=== PATIENT | female | born 1995 | race Caucasian/White ===

== ENCOUNTER 2017-05-07 10:00 | Outpatient (CLI) | payer MEDICAID, SELFPAY | END 2017-05-07 11:40 | disposition home or self-care (01) | LOC: WPOUT 11:04 → WP 11:05 | PROVIDERS: Family Provider Internal Medicine; PCP Internal Medicine; Visit Provider Obstetrics & Gynecology | DX: Z39.1 Encounter for care and examination of lactating mother (principal) ==

== ENCOUNTER → 2017-09-22 14:59 | Outpatient (CLI) | payer MEDICAID, SELFPAY ==
--- NOTE | 2017-09-22 15:04 | RAD_ITS ---
STUDY: X-RAY - LEFT KNEE REASON FOR EXAM: Female, 22 years old. Left knee pain for one month. TECHNIQUE: 3 view(s) of the knee. COMPARISON: None. FINDINGS: Normal visualized distal femur. Normal visualized proximal tibia and fibula. Normal patella. There is no demonstrated destructive osseous lesion or fracture. Normal medial femorotibial compartment. Normal lateral femorotibial compartment. Normal patellofemoral articulation. Normal proximal tibiofibular articulation. There is no demonstrated joint effusion. The soft tissue structures are unremarkable. RAD/Knee 3 Views IMPRESSION: Normal x-ray examination of the left knee. Electronically Signed: Samuel Helton MD at 19:15 EDT , Service support ,
== END ==
PROVIDERS: Family Provider Internal Medicine; PCP Internal Medicine; Visit Provider Nurse Practitioner Family
DX: M25.562 Pain in left knee (principal)
CPT/HCPCS: 73562

== ENCOUNTER 2017-11-02 23:54 | Emergency (ER) | payer MEDICAID, SELFPAY ==
--- NOTE | 2017-11-02 23:54 | DT_ITS ---
This patient was seen during an EMR downtime November 02, 2017 - November 09, 2017. This patient may have a combination of paper and electronic documentation or all paper documentation. All documentation is viewable within the e-chart portion of [employer] for each patient visit.
== END 2017-11-03 00:28 | disposition home or self-care (01) ==
LOC: ED 11-04 16:21
PROVIDERS: Emergency Provider Emergency Medicine; Family Provider Internal Medicine; PCP Internal Medicine
DX: J06.9 Acute upper respiratory infection, unspecified (principal); Z79.899 Other long term (current) drug therapy; G43.909 Migraine, unspecified, not intractable, without status migrainosus; K58.9 Irritable bowel syndrome, unspecified
CPT/HCPCS: 99283

== ENCOUNTER 2017-11-13 11:30 | Outpatient (RCR) | payer MEDICAID, SELFPAY ==
--- NOTE | 2017-10-23 15:43 | HP.PTEVAL ---
Patient's Visit Information JESSY LOPEZ is a 22 year old F referred to Physical Therapy by MADELEINE Wiley with a diagnosis of L knee pain. Date of Evaluation: 10/23/17 Physical Therapist: Jack Leon DPT, OC - Visit Plan Frequency: 3x /Week Duration: 4-6 Weeks Plan: 3x/weekk for 2-4 for. 1. pt to bring brace to check fit and lateral patella hold. 2. foam rolla nd stretch ITB and quads. 3. Strengthen hip stabs adn progress to HEP. 4. ES and ice as needed to lateral L knee. - Subjective Subjective: Hurt L knee insidiously(maybe b/c I was . and had baby 5 months ago. Staarted back to work 3 months ago. Anterior knee left pain new to her. Worse sitting. Sleep is interrupted as it hurts in bed. It cracks alot. 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 Basic ADLs are worse and limited but sitting is the worst. Finished school today and will have clinicals. - Pain L anterior Pain Intensity (Out of 10): 6 Pain Intensity Range: 0, 7 Comment: worse with sitting - Objective Walks normal and trasnfers without difficulty today. L IR at femur adn tibia is her posture. Foot bio mechanics are normal otherwise. Tender under lateral L patella and + patellar grind. - bounce home. Full aROM in knee, quads and ITB tight B and painful at end of flexion. reflexes 2/3 in patella and achilles. Sensation WNL to gross light touch. - anterior drawer adn lachmans. Sits with IR at B femur. - Goals Goal 1:: No pain consistently at rest. Goal Time Frame: 4-6 Weeks Goal 2:: Steps and sit to relax without pain Goal Time Frame: 4-6 Weeks Goal 3:: Pt with pain 90% better adn no more than 1/10 Goal Time Frame: 4-6 Weeks Goal 4:: I approp ex to minimze future problems. Goal Time Frame: 4-6 Weeks - Rehabilitation Potential Physical Therapy Diagnosis: L patellofemoral irritation Rehabilitation Potential: Fair - Anticipated Interventions Patient/Client Instruction: Educate patient on: Condition, Plan of Care For the Purpose of:: To decrease pain, To improve ability of physical actions for home/community/work/leisure Therapeutic Exercise to Include: Strength training, Postural training, Active ROM For the Purpose of:: To decrease pain, To improve ability of physical actions for home/community/work/leisure, To improve gait and locomotor functions Manual Therapy Techniques to Include: Soft tissue mobilization For the Purpose of:: To increase ROM TENS: Yes Cryotherapy (ice pack, ice massage): Yes For the Purpose of:: To decrease pain Thank you for the opportunity to evaluate your patient. For Medicare and Medicare HMO plans, please review the plan of care and approve it. It will need to be FAXED BACK to us at [phone] for Medicare purposes. Please let me know if there are questions or concerns regarding this plan of care. Physician Signature: Date:
--- NOTE | 2018-01-07 12:00 | HP.PT.NRP ---
HP - Discharge Summary (1) - Patient Information JESSY LOPEZ was seen in my office for initial evaluation on 10/23/17. The following Plan of Care was established for this patient: Initial Frequency: 3x /Week Initial Duration: 4-6 Weeks - Anticipated Interventions Patient/Client Instruction: Educate patient on: Condition, Plan of Care For the Purpose of:: To decrease pain, To improve ability of physical actions for home/community/work/leisure Therapeutic Exercise to Include: Strength training, Postural training, Active ROM For the Purpose of:: To decrease pain, To improve ability of physical actions for home/community/work/leisure, To improve gait and locomotor functions Manual Therapy Techniques to Include: Soft tissue mobilization For the Purpose of:: To increase ROM TENS: Yes Cryotherapy (ice pack, ice massage): Yes For the Purpose of:: To decrease pain This patient was last seen in our office 11/13/17. Pertinent comments regarding their Physical therapy will appear below: Pt seen for two visits of her plan of care and cancelled/no showed for the rest. I will discontinue her due to nonattendance at this point as it has been over two months. At this point I will be discontinuing this patient from physical therapy. I would be happy to see this patient again in the future if found appropriate by the physician. Thank you! Jack Leon, DPT, OC
== END 2017-11-13 19:00 | disposition home or self-care (01) ==
LOC: PT 11:30
PROVIDERS: Family Provider Internal Medicine; PCP Internal Medicine; Visit Provider Nurse Practitioner Family
DX: M25.569 Pain in unspecified knee (principal)
CPT/HCPCS: 97110; 97161

== ENCOUNTER 2017-12-05 21:24 | Emergency (ER) | payer MEDICAID, SELFPAY ==
[2017-12-05 21:24] VITALS: BP 152/79; PULSE 91; RESP 18; TEMP 37.1; O2SAT 97; BMI 31.2
[2017-12-05 21:58] LABS: Red Blood Cells-Urine 0 SEEN /hpf (0-5)
[2017-12-05] MEDS: Ketorolac 30 MG/ML Syringe IV (22:00)
[2017-12-05] MEDS: 0.9% Normal Saline 1,000 ML 1000 ML IV (22:00)
[2017-12-05] MEDS: Ondansetron 4 MG/2 ML Vial IV (22:00)
[2017-12-05 22:01] LABS: Absolute Lymphocyte Count 2.55 X10^3/ul (0.83-4.51); Absolute Neutrophil Count 4.1 X10^3/uL (2.0-7.7); Basophil# 0.02 X10^3/uL; Basophil% 0.3 % (0-1); Eosinophil# 0.26 X10^3/uL; Eosinophils% 3.5 % (0-5); Hematocrit 38.7 % (37-47); Hemoglobin 12.7 g/dl (12.0-15.0); Lymphocyte # 2.55 X10^3/ul (4.0); Lymphocyte % 34.1 % (19-41); Mean Corp Hgb Conc 32.8 g/gl (32-36); Mean Corpuscular Hgb 27.3 pg (27.0-32.0); Mean Corpuscular Volume 83.2 fL (81-99); Mean Platelet Vol. 9.1 fl (6.2-12.0); Monocyte# 0.53 X10^3/uL; Monocyte% 7.1 % (0-10); Neutrophil # 4.11 X10^3/uL (2.7-7.7); Neutrophil % 54.9 % (47-70); Platelet Count 208 K/mm3 (150-450); RBC Distribution Width CV 13.4 % (11.6-14.6); RBC Distribution Width SD 40.8 fl (35.1-43.9); Red Blood Count 4.65 M/mm3 (4.2-5.4); White Blood Count 7.5 K/mm3 (4.4-11.0)
[2017-12-05 22:02] LABS: POSITIVE COUNT NO; POSITIVE DIFFERENTIAL NO; POSITIVE MORPHOLOGY NO
[2017-12-05 22:05] LABS: Color, Urine Yellow (Yellow); Glucose, Dipstick Normal (Normal); Ketone-Dipstick Negative (Negative); Leukocyte Esterase-Dipstick 25 /ul (Negative); Nitrite-Dipstick Negative (Negative); Occult Blood-Urine Negative /ul (Negative); Protein-Dipstick 15 mg/dl (Negative); Specific Gravity, Urine 1.015 (1.002-1.030); Urine Bilirubin Dipstick Negative (Negative); Urine Clarity Clear (Clear); Urine Urobilinogen Normal (Normal); Urine pH 6.5 (5.0 - 8.0)
[2017-12-05 22:14] LABS: Bacteria 2+ /hpf (None Seen); Mucous, Urine 2+ /hpf (<or=2+); Squamous Epithelial Cells - UA 10-25 SEEN /hpf (5-10); White Blood Cells 0-5 SEEN /hpf (0-5)
[2017-12-05 22:21] LABS: AST(SGOT) 11 U/L (15-37); Alanine Aminotransfer ALT/SGPT 22 U/L (13-56); Albumin, Serum 3.4 g/dL (3.2-5.0); Alkaline Phosphatase 71 U/L (45-117); Anion Gap 10 (5-15); BUN 11 mg/dL (7-18); BUN/Creat Ratio 13.6 RATIO (10-20); Bilirubin, Direct 0.07 mg/dL (0.00-0.30); Calcium,Total 8.7 mg/dL (8.5-10.1); Chloride 107 mmol/L (98-107); Creatinine, Serum 0.81 mg/dL (0.55-1.02); EST Glomerular Filtration Rate 96 mL/min (>60); Est Glom Filt Rate - Afr Amer 116 mL/min (>60); Estimated Creatinine Clearance 103.71 ml/min; Globulin 3.6 g/dL (2.2-4.2); Glucose 98 mg/dL (74-106); Lipase 103 U/L (73-393); Potassium 3.5 mmol/L (3.5-5.1); Sodium Level 141 mmol/L (136-145)
[2017-12-05 22:24] LABS: Pregnancy, Serum, hCG Quali. NEGATIVE Negative (0-9 Nonpreg)
--- NOTE | 2017-12-05 22:33 | ED.DCSUM_ITS ---
- ER Visit Summary Date of Service: 12/05/17 Chief Complaint: Abdominal pain History of Present Illness: The patient is a [address] De La Rosa. She reports that she has abdominal pain began approximately a month ago. Is an intermittent pain that lasts minutes 10 hours at time. She describes it as sharp and stabbing. Is 10-10 hours and 710 currently. States that it is brought on by eating. It does not matter what she eats it does not seem to be specifically associated with fatty food. She reports that it begins approximate 5-10 minutes after eating. She states is relieved by nothing. She has had nausea without vomiting. She reports that she has chronic diarrhea. She had 5-6 episodes yesterday. She has not had diarrhea today. No blood in her stools or black tarry stools. No dysuria frequency. Last menstrual period was December 02. No vaginal bleeding or discharge. Patient reports that she saw her primary care physician as scheduled for an ultrasound of her right upper quadrant in 5 days. She was placed on omeprazole. She reports she has not gotten relief from not. Physical Examination: Vitals: Stable. Afebrile. General: Well-nourished and well-developed. Head: Normocephalic atraumatic. Neck: Supple, no lymphadenopathy. No JVD. Nontender. Cardiovascular: Regular rate and rhythm. No murmurs. Respiratory: No respiratory distress. Clear to auscultation bilaterally. Abdominal: Soft, mild diffuse tenderness palpation is worst in the left upper quadrant, nondistended, normal bowel sounds. No guarding, rebound, or peritoneal signs. No Katz sign. No localized tenderness in the right lower quadrant. Back: Nontender. Extremities: Nontender, no edema. Skin: Normal color, no rash. Neurologic: Alert and oriented ?3. Cranial nerves II through XII are intact. Normal strength and sensation. Psych: Normal affect. Test Results: CBC is normal. Chem-7 is normal. Liver panel is marked for an AST of 11. Lipase is normal. UA is negative. test is negative. Emergency Department Course and Treatment: Patient was treated Toradol and Zofran IV. She is resting comfortably. Treatment Plan: Patient be discharged with Zofran. Instructed to continue her omeprazole. Follow-up her primary care physician in 3-5 days for further evaluation and treatment. Disposition: To home in [facility] stable condition. Impression: 1. Abdominal pain, uncertain cause. 2. History of hiatal hernia. This note was generated with [employer] dictation software. It may contain incorrect words, spelling, and punctuation that were not noted in review of the chart prior to signing ED Disposition - Plan for ED Patient: Chief Complaint: Abd Pain Instructions: ED Abdominal Pain Unkn Cause Prescriptions: Ondansetron [Zofran Odt] 4 mg PO Q8H PRN PRN #10 tablet PRN Reason: Nausea Referrals: Anna De La Rosa MD [Primary Care Provider] - 3-5 Days if not improving
[2017-12-05 22:42] VITALS: BP 146/80; PULSE 88; RESP 16; O2SAT 98
== END 2017-12-05 22:44 | disposition home or self-care (01) ==
LOC: ED 21:39
PROVIDERS: Emergency Provider Emergency Medicine; Family Provider Internal Medicine; PCP Internal Medicine
DX: R10.9 Unspecified abdominal pain (principal); R11.0 Nausea; R19.7 Diarrhea, unspecified
CPT/HCPCS: 80048; 80076; 81001; 83690; 84703; 85025; 96361; 96374; 96375; 99283; J7030; A4216; J2405

== ENCOUNTER → 2017-12-08 10:49 | Outpatient (CLI) | payer MEDICAID, SELFPAY ==
--- NOTE | 2017-12-08 10:51 | US_ITS ---
STUDY: ABDOMINAL ULTRASOUND - RIGHT UPPER QUADRANT REASON FOR VISIT: Female, 22 years old. Pain TECHNIQUE: Ultrasound evaluation of the right upper quadrant was performed with real-time and static rivera-scale imaging. TECHNICAL QUALITY: Adequate. COMPARISON: None. FINDINGS: Liver: The liver measures 16.9 cm. There is normal echogenicity of the liver. The bile ducts are within normal limits. There is hepatic color flow. The direction of portal flow is hepatopetal. There is no demonstrated mass lesion. Gallbladder: Normal distended gallbladder. The gallbladder wall measures 2.8 mm. There is a negative sonographic Katz's sign. There is no pericholecystic fluid. There are no gallstones. Common Bile Duct (C.B.D.): The common bile duct measures 2.7 mm. Pancreas: Normal size of the head, body and tail of the pancreas. There is normal echogenicity of the pancreas. There is no demonstrated pancreatic mass or cyst. Right Kidney: Normal size of the right kidney. The right kidney measures 11.2 x 6.6 x 6.1 cm. Normal renal cortex. The right cortex measures 2.6 cm. There is no demonstrated renal mass or cyst. There is no right hydronephrosis. US/Gallbladder IMPRESSION: Normal right upper quadrant ultrasound examination. Electronically Signed: Oscar Engle MD at 22:18 EDT Tel , Service support ,
== END ==
PROVIDERS: Family Provider Internal Medicine; PCP Internal Medicine; Visit Provider Nurse Practitioner Family
DX: R10.11 Right upper quadrant pain (principal)
CPT/HCPCS: 76705

== ENCOUNTER 2018-02-07 17:57 | Emergency (ER) | payer MEDICAID, SELFPAY ==
[2018-02-07 17:58] VITALS: BP 146/101; PULSE 114; RESP 16; TEMP 36.8; O2SAT 98; BMI 28.1
[2018-02-07] MEDS: 0.9% Normal Saline 1,000 ML 999 ML IV (18:38)
[2018-02-07] MEDS: DiphenhydrAMINE 50 MG/ML Syringe 25 MG IV (18:38)
[2018-02-07] MEDS: Metoclopramide 10 MG/2 ML Vial IV (18:38)
[2018-02-07 19:29] LABS: Pregnancy, Serum, hCG Quali. NEGATIVE Negative (0-9 Nonpreg)
--- NOTE | 2018-02-07 20:10 | ED.DCSUM_ITS ---
- ER Visit Summary Date of Service: 02/07/18 Chief Complaint: Headache, vertigo History of Present Illness: The patient is a 22 F who has migraines developed a gradual onset of headache 3 days ago however this is different because she had some vertiginous symptoms with it. These are not instigated by movement. They are not worsened by movement. They are intermittent and she cannot tell when they come on. She has no vision changes no weakness no voice change or difficulty speaking. She has no paresthesias. She has no other neurological symptoms. Her headache is mild to moderate and consistent with prior migraines. The headache has not been the worst headache, it is not a thunderclap headache. It is diffuse and not local. Physical Examination: Not appear in acute distress. She does not appear toxic. Moist mucous membranes, no obvious facial deformity No C-spine tenderness supple neck. Regular rate and rhythm without any obvious murmurs Clear lungs bilaterally speaking in full sentences without any obvious respiratory distress Abdomen soft and nontender no guarding or rebound Moves all extremities without any difficulty or pain. Skin does not show any obvious rashes or lesions, no trauma. Alert oriented ?3 with no gross focal deficit. Cranial nerves are intact. NIH stroke scale done by me is normal. She has a normal gait. She does not have any compensated saccade. Emergency Department Course and Treatment: Improved with IV fluids Reglan and Benadryl. Her CT angiogram looked unremarkable. There is a 4.3 cm heterogeneous mass in the thyroid isthmus. Malignancy cannot be excluded per radiology. I printed the report for her gave it to her told her that she is to follow-up with her PCP for further testing. She is also referred to surgery. She understands that this could be cancer. As far as her headache and vertigo these have improved there is no further testing needs to be done. Patient be discharged in stable condition Discharge stable condition Impression: Cephalgia improved Vertigo Thyroid mass This note was generated with [employer] dictation software. It may contain incorrect words, spelling, and punctuation that were not noted in review of the chart prior to signing ED Disposition - Plan for ED Patient: Disposition: Home or Assisted Living Chief Complaint: Dizziness Instructions: ED Vertigo Unspecified Referrals: Anna De La Rosa MD [Primary Care Provider] - 3-5 Days Sybil Tran MD [STAFF PHYSICIAN] - 3-5 Days Additional Instructions: Incidentally a thyroid mass was seen on CAT scan, this could be cancer please follow-up with surgery as well as your primary doctor for further testing.
[2018-02-07 21:19] VITALS: BP 128/79; PULSE 82; RESP 16; O2SAT 98
== END 2018-02-07 21:20 | disposition home or self-care (01) ==
PROVIDERS: Emergency Provider Emergency Medicine; Family Provider Internal Medicine; PCP Internal Medicine
DX: R51 Headache (principal); R42 Dizziness and giddiness; E07.9 Disorder of thyroid, unspecified; G43.909 Migraine, unspecified, not intractable, without status migrainosus; K58.9 Irritable bowel syndrome, unspecified; Z79.899 Other long term (current) drug therapy
CPT/HCPCS: 70496; 70498; 84703; 96361; 96374; 99283; J7030; Q9967; A4216

== ENCOUNTER → 2018-02-12 10:04 | Outpatient (CLI) | payer MEDICAID, SELFPAY ==
[2018-02-12 11:21] LABS: T4 Free Direct 0.94 ng/dL (0.76-1.46); Thyroid Stim Hormone (TSH) 1.47 uIU/mL (0.358-3.74)
[2018-02-12 11:21] LABS: T3 Total - Triiodothyronine 1.58 ng/mL (0.6-1.81)
== END ==
PROVIDERS: Family Provider Internal Medicine; PCP Internal Medicine; Visit Provider Nurse Practitioner Family
DX: E07.9 Disorder of thyroid, unspecified (principal)
CPT/HCPCS: 84439; 84443; 84480

== ENCOUNTER → 2018-02-17 09:01 | Outpatient (CLI) | payer MEDICAID, SELFPAY ==
--- NOTE | 2018-02-17 09:04 | US_ITS ---
STUDY: THYROID ULTRASOUND REASON FOR EXAM: Female, 22 years old. Thyroid mass TECHNIQUE: Ultrasound evaluation of the thyroid was performed with real-time and static rivera-scale imaging. COMPARISON: CTA neck dated 02/07/2018 FINDINGS: RIGHT LOBE: The right lobe of the thyroid gland measures 4.9 x 2.4 x 1.2 cm. There is a homogeneous echotexture. Single solid lower pole nodule measuring 6 x 4 x 4 mm. LEFT LOBE: The left lobe of the thyroid gland measures 4.5 x 2 x 1.1 cm. There is a homogeneous echotexture. 2 solid nodules, largest in the lower pole measuring 9 x 8 x 6 mm. ISTHMUS: The isthmus measures 4 mm. In the region of the isthmus, there is a complex and vascular nodule/mass measuring 4.1 x 4.8 x 2.6 cm The regional lymph nodes are normal. US/Thyroid IMPRESSION: 1. Large complex isthmus nodule/mass 2. Small subcentimeter bilateral solid nodules Electronically Signed: Tim Webster DO at 10:00 EDT Tel , Service support ,
== END ==
PROVIDERS: Family Provider Internal Medicine; PCP Internal Medicine; Visit Provider Nurse Practitioner Family
DX: E07.9 Disorder of thyroid, unspecified (principal)
CPT/HCPCS: 76536

== ENCOUNTER → 2018-03-06 06:31 | Outpatient (CLI) | payer MEDICAID, SELFPAY ==
--- NOTE | 2018-03-06 08:00 | FLU_PTH ---
PATIENT: JESSY LOPEZ LOC: [facility] U#:[id number] AGE/SX: 29/F ROOM: RE03/06/[address]: Dr. Juan Ozuna MD : 1995 BED: DIS: SPEC #: [id number] RECD: 03/06/18 12:09 STATUS: GAVIN LATA #: [id number] LORIE: 03/06/18 08:[address]: Juan Ozuna DEPT: CYTOLOGY RECD BY: Amanda Michaels ENTERED: 03/08/18 11:19 SP TYPE: Fluid OTHR DR: Dr. Anna De La Rosa MD Tissues: A - Thyroid isthmus B - Thyroid isthmus Procedures: Pap Stain (control) Special Stain Group II Surgery Specimen Level IV Cell Block Cytospin Fluid Cytology Other HEADER OPERATION: Fine needle aspiration of isthmus PRE-OP DIAGNOSIS: Multinodular goiter (nontoxic) TISSUE SUBMITTED: A - Fine needle aspiration of isthmus, fluid for cytology, B - Fine needle aspiration of isthmus 12?slides DIAGNOSIS CYTOLOGY A. Fine needle aspiration, isthmus (cytospin and cell block): Macrophages and inflammatory cells consistent with benign cyst contents. B. Fine needle aspiration, isthmus (smears): Adequate for evaluation. Rare atypical cells of undetermined clinical significance. AM:mary 03/09/18 COMMENT A. Immunohistochemistry ([id number]) supports the above diagnosis. CYTOLOGY STUDY Slides are reviewed. CYTOLOGY GROSS A - Received is 7 ml of red cloudy fluid labeled with the patient's name and and designated per the requisition as isthmus. Submitted for cytology preparation including cell block. B - Received are 12 smears labeled with the patient's name and designated per the requisition as isthmus. Submitted for staining. 03/08/18 TC:? CPT: 94379, 91440, 76982
--- NOTE | 2018-03-08 | IMM_PTH ---
PATIENT: JESSY LOPEZ LOC: [facility] U#:[id number] AGE/SX: 29/F ROOM: RE03/06/[address]: Dr. Juan Ozuna MD : 1995 BED: DIS: SPEC #: [id number] RECD: 03/09/18 13:48 STATUS: GAVIN REQ #: [id number] LORIE: 03/08/18 00:[address]: Juan Ozuna DEPT: IMMUNOHISTOCHEMISTRY RECD BY: Michelle Garcia ENTERED: 03/09/18 13:50 SP TYPE: IMMUNO OTHR DR: Dr. Anna De La Rosa MD Tissues: A - Thyroid isthmus Procedures: MACRO (initial) Thyroglobulin (add) Vimentin (add) PHYSICIAN & INSTITUTION [place] [id number] SPECIMEN INFORMATION: Tissue Source: A - Fine needle aspiration, isthmus Clinical Info: Multinodular goiter (nontoxic) Specimen Number: [id number] CPT code: 72715, 78587 x2 METHODOLOGY: Deparaffinized sections of prefer/formalin-fixed tissue or PAP/DQ stained slides are incubated with monoclonal/polyclonal antibodies/oligonucleotide probes. Localization is made via biotin free immunoperoxidase method. Appropriate controls are performed and reacted as expected. Results on target cell population are indicated in the following table: RESULTS: ANTIBODY / CLONE RESULT Block A Macro (HAM-56) positive Thyro (2H11+6E1) positive, rare Vimentin (V9) positive These tests were developed and their performance characteristics determined by [facility]. They may not have been cleared or approved by the U.S. Food and Drug Administration. The FDA has determined that such clearance or approval is not necessary. INTERPRETATION: Katia Kohli, fine needle aspiration: Consistent with benign thyroid cyst contents. AM:mary 03/10/18
== END ==
PROVIDERS: Family Provider Internal Medicine; PCP Internal Medicine; Referring Provider Surgery; Visit Provider Surgery
DX: E04.2 Nontoxic multinodular goiter (principal)
CPT/HCPCS: 88108; 88161; 88172; 88305; 88307; 88313; 88341; 88342

== ENCOUNTER 2018-03-30 10:23 | Day surgery (SDC) | payer MEDICAID, SELFPAY ==
[2018-03-30] VITALS (10 sets, daily range): BP systolic 109–138; BP diastolic 70–98; PULSE 78–110; RESP 14–18; TEMP 36.3–37.2; O2SAT 94–100; BMI 31.4
--- NOTE | 2018-03-30 | LYMN_PTH ---
PATIENT: JESSY LOPEZ LOC: [facility] [place] U#:[id number] AGE/SX: 22/F ROOM: RE03/30/[address]: Dr. Juan Ozuna MD : 1995 BED: DIS: 03/31/2018 SPEC #: [id number] RECD: 03/30/18 13:44 STATUS: GAVIN LATA #: [id number] LORIE: 03/30/18 00:[address]: Juan Ozuna DEPT: SURGICAL PATHOLOGY RECD BY: Michelle Garcia ENTERED: 03/30/18 15:15 SP TYPE: LYMPH NODE OTHR DR: Dr. Anna De La Rosa MD Tissues: A - LYMPH NODE BIOPSY B - Thyroid gland, NOS Procedures: Frozen Section (charge) Surgery Specimen Level IV Frozen (no charge) HEADER OPERATION: Total thyroidectomy PRE-OP DIAGNOSIS: Multinodular goiter TISSUE SUBMITTED: A - Left node central compartment sent for frozen at 1339, B - Total thyroid sent for frozen at 1358) FROZEN SECTION DIAGNOSIS A. Left node central compartment, biopsy: One benign lymph node. B. Thyroid, total thyroidectomy: Isthmic nodule, complex cystic colloid nodule. A few benign lymph nodes. PEREZ:mary 03/30/18 MICROSCOPIC DIAGNOSIS A. Left node central compartment, biopsy: One benign lymph node. B. Thyroid, total thyroidectomy: Isthmic nodule, complex cystic colloid nodule with focal calcifications. Five benign lymph nodes. See comment. PEREZ:mary 03/31/18 COMMENT B. The isthmic nodule also extends focally into the left thyroid lobe. Please make reference to previous specimen ([id number]), fine needle aspiration, isthmus with diagnosis of macrophages and inflammatory cells consistent with benign cyst contents and fine needle aspiration, isthmus with diagnosis of rare atypical cells of undetermined significance. MICROSCOPIC DESCRIPTION Slides are reviewed. GROSS DESCRIPTION A - Received fresh for frozen section diagnosis labeled with the patient's name is a specimen designated left node central compartment. The specimen consists of an ovoid piece of lebron-pink soft tissue consistent with lymph node measuring 1 x 0.6 x 0.2 cm. The specimen is bisected and submitted entirely for frozen section diagnosis in one cassette. B - Received fresh for frozen section diagnosis labeled with the patient's name is a specimen designated total thyroid. The specimen consists of a total thyroidectomy specimen weighing 29.6 gm. The right thyroid lobe measures 4 x 1.5 x 1 cm and left thyroid lobe measures 4.5 x 2 x 1 cm and the isthmus is enlarged and appears nodular and measures 4 x 4 x 3.5 cm. The specimen is inked as follows: posterior surface right lobe, left lobe and isthmus - black, anterior surface right lobe - blue, anterior surface left lobe - green and anterior surface isthmus - yellow. Serial sections of the isthmus reveal a complex cystic nodule filled with bloody material. Focal solid areas are noted. Two sections of these nodules are submitted for frozen section diagnosis. Sections of these nodules also reveal focally calcified cut surfaces. The entire specimen is submitted in 13 cassettes as follows: 1 & 2 - frozen section, isthmic nodule, 3-7 - rest of the isthmic nodule, 8-10 - right lobe (8 containing most superior portion and 10 containing most inferior portion), 11-13 - left lobe (11 containing most superior portion and 13 containing most inferior portion). / PEREZ:mary 03/30/18 TC:5 CPT: 54657, 73697, 11246 x2, 35812
[2018-03-30 10:55] LABS: Internal QC Validated? YES +Cl - CLEAR BKGD; Pregnancy, Urine Negative Negative
[2018-03-30 11:10] LABS: International Normalized Ratio 0.9; Prothrombin Time (Protime)PT. 12.5 SECONDS (11.7-14.9)
[2018-03-30 11:11] LABS: Partial Thromboplast Time 27.6 Seconds (24.1-36.2)
[2018-03-30] MEDS: Cefazolin 2 GM in 0.9% Normal Saline 100 ML IV (12:50)
[2018-03-30] MEDS: BUPIVACAINE LIPOSOME/PF 20 ML VIAL OPERA.SITE (14:00)
--- NOTE | 2018-03-30 14:12 | PCM.OPRPT ---
Problem List (1) Multinodular goiter (nontoxic) Status: Acute Report of Operation Date of Procedure: 03/30/18 Pre-Operative Diagnosis: e04.2 multinodular goiter Post-Operative Diagnosis: Same Surgery/Procedure Performed:: Total thyroidectomy Type of Anesthesia:: General Anesthesiologist: Estrada Mays - asa 2 Estimated Blood Loss (mL): < 25 cc Fluids Replaced: 1300 cc lr Description of Procedure: Patient was brought into the operating room. Placed in the supine position. Under excellent general anesthetic towel was placed underneath the shoulder blades and the neck was extended. The neck was then sterilely prepped and draped in usual fashion. Local was injected into the neck. Cervical incision was made. Dissection was carried down with electrocautery and subplatysmal flaps were created. Gelpi retractor was placed in the wound. I opened the midline strap muscles. I started on the left side. I went to the superior pole vessels and took these down with harmonic dissector. The middle thyroidal vein was taken down with harmonic dissector. In the inferior pole vessels were taken down. I rotated the gland from lateral to medial standpoint identified both superior and inferior parathyroid glands. I stayed close to the gland I did not see the recurrent laryngeal nerve. Took the gland off of Machado's ligaments with the harmonic dissector. I rotated it off the top of the trachea and went to the right side. The mass that was on the isthmus was actually with in the right lobe again extending and I do not feel it was appropriate for me to transect the lobe in its center and create a much more difficult second surgery if she had malignancy. I made a judgment call that removing not only isthmus but the right side was the more appropriate surgery here. I went to the superior pole vessels and I took these down with harmonic dissector I used 2 small medium clips in the process. I identified the superior parathyroid gland. Took the middle thyroidal vessel down with harmonic dissector and rotated the gland from lateral to medial standpoint identifying the inferior parathyroid gland in the process I then took the rest of the gland off of Machado's ligaments with the harmonic dissector and sent it to pathology for frozen section which came back initially benign. I did remove a central compartment lymph node in the process. This was sent to pathology no malignancy was identified on frozen section. I had excellent hemostasis I placed FloSeal in both the right and left operating beds I closed the midline strap muscles with a 2-0 Vicryl in a locking fashion. Midline strap muscles were brought together with a 3-0 Vicryl. Then a running 4-0 Monocryl on the skin. Dermabond was applied sterile dressings were applied and the patient tolerated the procedure well. - Admit VTE Documentation VTE Present on Admission: No VTE Mechan Device Prophylaxis: SCD's VTE Pharm Prophylaxis ordered?: No Reason prophylaxis not ordered:: Treatment Not Indicated
[2018-03-30 15:12] LABS: Calcium,Total 8.6 mg/dL (8.5-10.1)
[2018-03-30] MEDS: oxyCODONE 5 MG Tablet 10 MG PO ×2 (18:25→22:46)
[2018-03-30] MEDS: Calcium Carbonate 500 MG Tablet 1000 MG PO (18:25)
[2018-03-30] MEDS: Lactated Ringers 1,000 ML 60 ML IV (18:26)
[2018-03-30] MEDS: Cefazolin 1 GM/50 ML BAG IV (22:10)
[2018-03-30] MEDS: Topiramate 50 MG Tablet PO (22:10)
[2018-03-30 22:46] LABS: Calcium,Total 9.4 mg/dL (8.5-10.1)
[2018-03-31 02:32] VITALS: BP 105/66; PULSE 90; RESP 14; TEMP 36.7; O2SAT 95
[2018-03-31] MEDS: oxyCODONE 5 MG Tablet 10 MG PO (05:17)
[2018-03-31] MEDS: Levothyroxine 100 MCG Tablet PO (05:17)
[2018-03-31] MEDS: Cefazolin 1 GM/50 ML BAG IV (05:17)
[2018-03-31 06:30] LABS: Calcium,Total 9.3 mg/dL (8.5-10.1)
--- NOTE | 2018-03-31 07:07 | PCM.DC.SUM ---
Discharge Date and Diagnosis - Problem List Patient Problems: Active and Suspected Problems (Last Reviewed 03/12/18 @ 09:14 by Juan Ozuna MD) Multinodular goiter (nontoxic) (Acute) Date of Admission: 03/30/18 Date of Discharge: 03/31/18 - Primary Discharge Diagnosis Active and Suspected Problems (Last Reviewed 03/12/18 @ 09:14 by Juan Ozuna MD) Multinodular goiter (nontoxic) (Acute) - Secondary Discharge Diagnosis Chronic Problems (Last Reviewed 03/12/18 @ 09:14 by Juan Ozuna MD) Migraines (Chronic) IBS (irritable bowel syndrome) (Chronic) Hospital Course and Treatment Operations: - - Total thyroidectomy Summary of Care Provided: The patient is a 22 year old F who presented for an elective thyroidectomy for multi-nodular goiter. Dr. Ozuna performed a total thyroidectomy on 03/30/18. Patient tolerated the procedure well. Patient had an uneventful hospitalization. Upon discharge, patient notes minimal amount of incisional discomfort. She notes sore throat. She denies nausea, vomiting, fever. She is tolerating a diet well. Patient was instructed on medication and discharge instructions were reviewed. Patient will be discharged to home. Patient Problems: Active and Suspected Problems (Last Reviewed 03/12/18 @ 09:14 by Juan Ozuna MD) Multinodular goiter (nontoxic) (Acute) - Physical Exam General: Alert, Oriented x3, Cooperative Neck: Supple, Negative Carotid Bruits, - - Anterior neck incision- c/d/i. No erythema or infection noted. Bandage intact. Vital Signs Temp Pulse Resp BP Pulse Ox 98.1 F 90 14 105/66 95 03/31/18 02:32 03/31/18 02:32 03/31/18 02:32 03/31/18 02:32 03/31/18 02:32 Oxygen Delivery Method Room Air Weight: 200 lb 6.403 oz Body Mass Index (BMI) 31.4 Intake and Output for Last 24 Hours 03/29/18 03/30/18 03/31/18 23:59 23:59 23:59 Intake Total 2139 / 2139 1665 / 1665 Output Total 1100 / 1100 Balance 2139 / 2139 565 / 565 Laboratory Tests Past 24 Hrs 03/30/18 03/30/18 03/30/18 10:42 10:55 14:40 PT 12.5 INR 0.9 APTT 27.6 Calcium 8.6 Urine Test Negative 03/30/18 03/31/18 21:55 05:50 PT INR APTT Calcium 9.4 9.3 Urine Test Discharge Diet: Light diet - advance as tolerated Discharge Activity: May not drive while taking narcotic pain medications. May shower in (days): 1 Lifting Restrict to (lbs):: 10 Call your doctor if your incision/area has: Continuous Slow Oozing, Sudden Increased Bleeding, Increased Pain/ Swelling, Increased Redness, Foul Smelling Discharge, Swelling at the incision site Call your doctor if you observe: Fever of 101 or Higher, Coldness, Increased Pain, Numbness or Tingling Suture Line Care: Avoid Pulling/Pushing, Avoid Pinching/Bending Cleanse incision/area with: Soap & Water Home Medications: Medications to take at Discharge ibuprofen 600 mg tablet 600 mg PO TID PRN #60 tab 09/22/17 topiramate 50 mg tablet 50 mg PO BID 09/22/17 etonogestrel-ethinyl estradiol 0.12 mg -0.015 mg/24 hr vaginal ring 1 vag ring VAGINAL Q4W 02/12/18 sumatriptan 25 mg tablet 25 mg PO ONCE PRN #7 tab 02/12/18 Omeprazole 20 mg PO QDAY 03/25/18 Levothyroxine [Synthroid] 100 mcg PO DAILY@0600 #30 tablet 03/31/18 Oxycodone [Oxyir] 10 mg PO Q4H PRN PRN 3 Days #20 tablet 03/31/18 Following Prescrptions Were Given to Patient: Oxycodone [Oxyir] 10 mg PO Q4H PRN PRN 3 Days #20 tablet PRN Reason: Severe Pain (6-03/10) Levothyroxine [Synthroid] 100 mcg PO DAILY@0600 #30 tablet Primary Care Physician: Anna De La Rosa MD [Primary Care Provider] - Please Follow Up With: Juan Ozuna MD - [phone] When: 10 days Disposition: Home Minutes spent on discharge:: 20 Patient Condition:: Good Medical Necessity - Tobacco Use Smoking Status: Never smoker Meaningful Use Info Meaningful Use Diagnoses (Choose all that apply): None applicable Code Visit Inpatient E&M: 87429 Disch Hosp
--- NOTE | 2018-03-31 07:09 | PCM.DC.GS ---
Discharge Diet: Light diet - advance as tolerated - Soft foods for the first 2 days Discharge Activity: May not drive while taking narcotic pain medications. May shower in (days): 1 Lifting Restrictions: 10 pounds Call your doctor if your incision/area has: Continuous Slow Oozing, Sudden Increased Bleeding, Increased Pain/ Swelling, Increased Redness, Foul Smelling Discharge, Swelling at the incision site Call your doctor if you observe: Fever of 101 or Higher, Coldness, Increased Pain, Numbness or Tingling Suture Line Care: Avoid Pulling/Pushing, Avoid Pinching/Bending Cleanse incision/area with: Soap & Water Additional Instructions: You will need to take extra strength TUMs 2 tablets three times per day for 14 days Allergies/Adverse Reactions: Allergies No Known Allergies Allergy (Verified 03/25/18 09:15) Medications to take at Discharge ibuprofen 600 mg tablet 600 mg PO TID PRN #60 tab 09/22/17 topiramate 50 mg tablet 50 mg PO BID 09/22/17 etonogestrel-ethinyl estradiol 0.12 mg -0.015 mg/24 hr vaginal ring 1 vag ring VAGINAL Q4W 02/12/18 sumatriptan 25 mg tablet 25 mg PO ONCE PRN #7 tab 02/12/18 Omeprazole 20 mg PO QDAY 03/25/18 Levothyroxine [Synthroid] 100 mcg PO DAILY@0600 #30 tablet 03/31/18 Oxycodone [Oxyir] 10 mg PO Q4H PRN PRN 3 Days #20 tablet 03/31/18 The following prescriptions were given: Oxycodone [Oxyir] 10 mg PO Q4H PRN PRN 3 Days #20 tablet PRN Reason: Severe Pain (-03/10) Levothyroxine [Synthroid] 100 mcg PO DAILY@0600 #30 tablet Primary Care Physician: Anna De La Rosa MD [Primary Care Provider] - Test Results: Test results from this visit will be discussed in further detail at your follow-up appointment, if applicable. Please Follow Up With: Juan Ozuna MD - [phone] When: 10 days Proposed Discharge Date: 03/31/18
--- NOTE | 2018-03-31 07:13 | DCINST_ITS ---
Discharge Diet: Light diet - advance as tolerated - Soft foods for the first 2 days Discharge Activity: May not drive while taking narcotic pain medications. May shower in (days): 1 Lifting Restrictions: 10 pounds Call your doctor if your incision/area has: Continuous Slow Oozing, Sudden Increased Bleeding, Increased Pain/ Swelling, Increased Redness, Foul Smelling Discharge, Swelling at the incision site Call your doctor if you observe: Fever of 101 or Higher, Coldness, Increased Pain, Numbness or Tingling Suture Line Care: Avoid Pulling/Pushing, Avoid Pinching/Bending Cleanse incision/area with: Soap & Water Additional Instructions: You will need to take extra strength TUMs 2 tablets three times per day for 14 days Allergies/Adverse Reactions: Allergies No Known Allergies Allergy (Verified 03/25/18 09:15) Medications to take at Discharge ibuprofen 600 mg tablet 600 mg PO TID PRN #60 tab 09/22/17 topiramate 50 mg tablet 50 mg PO BID 09/22/17 etonogestrel-ethinyl estradiol 0.12 mg -0.015 mg/24 hr vaginal ring 1 vag ring VAGINAL Q4W 02/12/18 sumatriptan 25 mg tablet 25 mg PO ONCE PRN #7 tab 02/12/18 Omeprazole 20 mg PO QDAY 03/25/18 Levothyroxine [Synthroid] 100 mcg PO DAILY@0600 #30 tablet 03/31/18 Oxycodone [Oxyir] 10 mg PO Q4H PRN PRN 3 Days #20 tablet 03/31/18 The following prescriptions were given: Oxycodone [Oxyir] 10 mg PO Q4H PRN PRN 3 Days #20 tablet PRN Reason: Severe Pain (-03/10) Levothyroxine [Synthroid] 100 mcg PO DAILY@0600 #30 tablet Primary Care Physician: Anna De La Rosa MD [Primary Care Provider] - Test Results: Test results from this visit will be discussed in further detail at your follow- up appointment, if applicable. Please Follow Up With: Juan Ozuna MD - [phone] When: 10 days Proposed Discharge Date: 03/31/18
[2018-03-31 08:52] VITALS: BP 128/79; PULSE 75; RESP 16; TEMP 37; O2SAT 95
[2018-03-31] MEDS: Pantoprazole Sodium 20 MG Tablet PO (08:55)
[2018-03-31] MEDS: Calcium Carbonate 500 MG Tablet 1000 MG PO (08:55)
[2018-03-31] MEDS: Topiramate 50 MG Tablet PO (08:55)
== END 2018-03-31 10:25 | disposition home or self-care (01) ==
LOC: SDC 10:24 → AC 10:26 → MS3 12:57
PROVIDERS: Anesthesiology; Family Provider Internal Medicine; PCP Internal Medicine; Referring Provider Surgery; Visit Provider Surgery
PROC: (CPT 60240; principal; 2018-03-30 12:15)
DX: E04.2 Nontoxic multinodular goiter (principal); K21.9 Gastro-esophageal reflux disease without esophagitis; G43.909 Migraine, unspecified, not intractable, without status migrainosus
CPT/HCPCS: 00320; 60240; 36415; 81025; 82310; 85610; 85730; 88305; 88331; J7120; J2405

== ENCOUNTER 2018-07-06 07:26 | Emergency (ER) | payer MEDICAID, SELFPAY ==
[2018-07-06 07:27] VITALS: BP 150/84; PULSE 91; RESP 18; TEMP 36.8; O2SAT 98; BMI 30.5
--- NOTE | 2018-07-06 07:34 | ED.DCSUM_ITS ---
- ER Visit Summary Date of Service: 07/06/18 Chief Complaint: Dysuria, flank pain History of Present Illness: The patient is a 22 F presents to the emergency department flank pain or dysuria. The patient symptoms began about 2 days ago. She presented to an urgent care. She was diagnosed with urinary tract infection and started on Macrobid. She feels like her symptoms are worsening. She is begun to have pain in her left flank and some mild nausea. She thinks that she is had low-grade fevers. She is otherwise healthy. She does have a history of prior thyroidectomy and is on thyroid replacement, but she has no history of immunosuppression. She has no history of other surgery. She is been taking her antibiotics as prescribed. Physical Examination: Vital signs reviewed General: Well-nourished, well-developed Head: Normocephalic, atraumatic Eyes: Pupils equal and reactive, extraocular muscles intact Neck, supple, no lymphadenopathy Heart: Regular rate and rhythm Respiratory: No distress, clear bilaterally Abdomen: Soft, nontender, nondistended, no peritoneal signs Back: Mild left CVA tenderness Extremities: Nontender, no edema, no cords Skin: Normal color no rash Neuro: Alert and oriented, no focal or lateralizing deficits Test Results: [] Emergency Department Course and Treatment: I am unsure if the patient has a partially treated urinary tract infection or an early pyelonephritis. I did obtain a urine and a . was negative. Urine still does show evidence of infection. As the patient is on Macrobid and may have some symptoms of an early pyonephritis, I am going to change her to Bactrim. Her urine was cultured and she is not febrile. Her abdomen is soft and nontender. I do feel that she is safe for outpatient therapy. She was counseled on concerning symptoms and reasons to return. She will be discharged home. Treatment Plan: [] Disposition: Discharge Impression: 1. Acute cystitis This note was generated with [employer] dictation software. It may contain incorrect words, spelling, and punctuation that were not noted in review of the chart prior to signing ED Disposition - Plan for ED Patient: Instructions: ED UTI Cystitis Female Prescriptions: Smz/Tmp Ds [Bactrim Ds] 1 tab PO BID #14 tab Referrals: Anna De La Rosa MD [Primary Care Provider] -
[2018-07-06 08:51] LABS: Color, Urine Yellow (Yellow); Glucose, Dipstick Normal (Normal); Ketone-Dipstick 5 mg/dl (Negative); Leukocyte Esterase-Dipstick 500 /ul (Negative); Nitrite-Dipstick Negative (Negative); Occult Blood-Urine Negative /ul (Negative); Protein-Dipstick 15 mg/dl (Negative); Urine Bilirubin Dipstick Negative (Negative); Urine Clarity Sl. Cloudy (Clear); Urine Urobilinogen Normal (Normal)
[2018-07-06 08:55] LABS: Bacteria 2+ /hpf (None Seen); Internal QC Validated? YES +Cl - CLEAR BKGD; Mucous, Urine 2+ /hpf (<or=2+); Pregnancy, Urine Negative Negative; Red Blood Cells-Urine 0-5 SEEN /hpf (0-5); Squamous Epithelial Cells - UA 0-5 SEEN /hpf (5-10); White Blood Cells 10-25 SEEN /hpf (0-5)
[2018-07-06 09:42] VITALS: RESP 16
== END 2018-07-06 09:44 | disposition home or self-care (01) ==
LOC: ED 07:44
PROVIDERS: Emergency Provider Emergency Medicine; Family Provider Internal Medicine; PCP Internal Medicine
DX: N30.00 Acute cystitis without hematuria (principal)
CPT/HCPCS: 81001; 81025; 87086; 87088; 99282

== ENCOUNTER → 2018-07-14 12:51 | Outpatient (CLI) | payer MEDICAID, SELFPAY ==
[2018-07-14 10:50] VITALS: BMI 31.9
[2018-07-14 13:26] LABS: Color, Urine Yellow (Yellow); Glucose, Dipstick Normal (Normal); Ketone-Dipstick Negative (Negative); Leukocyte Esterase-Dipstick 25 /ul (Negative); Nitrite-Dipstick Negative (Negative); Occult Blood-Urine Negative /ul (Negative); Protein-Dipstick 15 mg/dl (Negative); Urine Bilirubin Dipstick Negative (Negative); Urine Clarity Cloudy (Clear); Urine Urobilinogen Normal (Normal); Urine pH 6.5 (5.0 - 8.0)
[2018-07-14 13:33] LABS: Red Blood Cells-Urine 0-5 SEEN /hpf (0-5); White Blood Cells 0-5 SEEN /hpf (0-5)
[2018-07-14 13:34] LABS: Amorphous Sediment 1+; Bacteria 1+ /hpf (None Seen); Mucous, Urine 1+ /hpf (<or=2+); Squamous Epithelial Cells - UA 0-5 SEEN /hpf (5-10)
--- NOTE | 2018-07-14 13:36 | RAD_ITS ---
STUDY: X-RAY - LUMBAR SPINE REASON FOR EXAM: Female, 22 years old. Lower back pain for 3 months. TECHNIQUE: 3 view(s) of the lumbar spine were obtained. COMPARISON: None FINDINGS: There is straightening of the normal lumbar lordosis. There is no substantial scoliosis. There is a normal alignment of the vertebrae. Normal vertebral bodies and endplates. Normal disc space heights. There is no evidence of acute fracture or loss of vertebral axial height. The soft tissue structures are unremarkable. RAD/Lumbar Spine 2 or 3 Views IMPRESSION: Straightened lumbar lordosis. Electronically Signed: Stephan Ohara DO at 20:50 EST Tel [phone], Service support ,
--- NOTE | 2018-07-14 13:55 | RAD_ITS ---
STUDY: X-RAY - THORACIC SPINE REASON FOR EXAM: Female, 22 years old. Back pain for 3 months. TECHNIQUE: 3 view(s) of the thoracic spine were obtained. COMPARISON: None. FINDINGS: Normal kyphosis of the thoracic spine. There is no substantial scoliosis. Normal thoracic vertebrae and endplates. Normal disc space heights. There is no evidence of acute fracture or loss of vertebral axial height. The soft tissue structures are unremarkable. RAD/Thoracic Spine 2 Views IMPRESSION: Normal x-ray examination of the thoracic spine. Electronically Signed: Stephan Ohara DO at 20:50 EST Tel [phone], Service support ,
[2018-07-14 14:34] LABS: T4 Free Direct 0.95 ng/dL (0.76-1.46)
== END ==
LOC: LABSPEC 13:13 → LAB 13:15 → RAD 13:35
PROVIDERS: Family Provider Internal Medicine; PCP Internal Medicine; Referring Provider Nurse Practitioner Family; Visit Provider Nurse Practitioner Family
DX: E03.9 Hypothyroidism, unspecified (principal); R10.9 Unspecified abdominal pain; Z98.890 Other specified postprocedural states; M54.5 Low back pain; M54.6 Pain in thoracic spine
CPT/HCPCS: 36415; 72070; 72100; 81001; 84439; 84443; 87086

== ENCOUNTER 2018-08-04 00:44 | Emergency (ER) | payer MEDICAID, SELFPAY ==
[2018-07-14 10:50] VITALS: BMI 31.9
[2018-08-04 00:45] VITALS: BP 146/100; PULSE 98; RESP 18; TEMP 36.7; O2SAT 100; BMI 32.1
--- NOTE | 2018-08-04 01:06 | EKG12_ITS ---
Test Reason : Blood Pressure : / mmHG Vent. Rate : 101 BPM Atrial Rate : 101 BPM P-R Int : 158 ms QRS Dur : 078 ms QT Int : 362 ms P-R-T Axes : 041 010 001 degrees QTc Int : 469 ms Sinus tachycardia Minimal voltage criteria for LVH, may be normal variant Borderline ECG Confirmed by JOHNATHAN VAUGHN ([id number]), manuscript editor STEPHANIE WOODS ([id number]) on 08/06/2018 1:09:46 PM Referred By: TL Confirmed By:JOHNATHAN VAUGHN
--- NOTE | 2018-08-04 01:07 | ED.VISSUMM ---
- ER Visit Summary Date of Service: 08/04/18 Chief Complaint: Lightheaded History of Present Illness: The patient is a 23 F here from work due to lightheaded symptoms with standing. Had nausea symptoms with that. No chest pains or shortness of breath. No recent vomiting or diarrhea. Patient did have an vaginal bleeding since changing her NuvaRing 5 days ago. Follow-up with her OB office yesterday NuvaRing was removed. She is been using this for the past 9 months. Would have some pelvic cramping. Yesterday went through 8 tampons today for. Had a vaginal exam in the office. Return if symptoms worsen or go to the ED. No anticoagulation medicines. She is on thyroid medicines which was adjusted 1 week ago. Denies any urinary symptoms. No cough. Physical Examination: General: Alert and oriented ?3, no acute distress HEENT: Normocephalic, atraumatic. Moist mucosa membranes. normal conjunctiva Neck: supple, nontender. Cardiovascular: Regular rate and rhythm, no murmurs Respiratory: Normal breath sounds, symmetric, no distress Abdomen: Soft, nontender, nondistended Pelvic: Declined secondary one in the office yesterday. Extremities: Nontender, no edema, pulses intact ?4 Neuro: no focal neurological deficits. Test Results: EKG: Sinus rate of 101, no ST changes. T wave inversion in leads III. QTc 469. Hemoglobin 13.3. Potassium 3.8, creatinine 0.8. HCG negative. Emergency Department Course and Treatment: Patient history concerns for near syncopal episode with no focal neurologic deficits. Given fluids. EKG labs stable. Hemoglobin 13.3. She declined pelvic due to having one yesterday in doctor's office. Discussed with patient she would not leave her NuvaRing off until her dysfunction bleeding resolved. Monitor symptoms. 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 Signs and symptoms discussed to return. All questions were answered. Treatment Plan: [] Disposition: Discharge Impression: 1. Near syncope 2. Dysfunctional uterine bleeding This note was generated with [employer] dictation software. It may contain incorrect words, spelling, and punctuation that were not noted in review of the chart prior to signing ED Disposition - Plan for ED Patient: Disposition: Home or Assisted Living Diagnosis: Near syncope, Dysfunctional uterine bleeding Instructions: ED Near Syncope Unkn, ED Bleed Irregular Vaginal Referrals: Anna De La Rosa MD [Primary Care Provider] - Additional Instructions: Follow-up with your gynecology office reevaluation if bleeding persist. Hemoglobin 13.3 today
--- NOTE | 2018-08-04 01:10 | ED.DCSUM_ITS ---
- ER Visit Summary Date of Service: 08/04/18 Chief Complaint: Lightheaded History of Present Illness: The patient is a 23 F here from work due to lightheaded symptoms with standing. Had nausea symptoms with that. No chest pains or shortness of breath. No recent vomiting or diarrhea. Patient did have an vaginal bleeding since changing her NuvaRing 5 days ago. Follow-up with her OB office yesterday NuvaRing was removed. She is been using this for the past 9 months. Would have some pelvic cramping. Yesterday went through 8 tampons today for. Had a vaginal exam in the office. Return if symptoms worsen or go to the ED. No anticoagulation medicines. She is on thyroid medicines which was adjusted 1 week ago. Denies any urinary symptoms. No cough. Physical Examination: General: Alert and oriented ?3, no acute distress HEENT: Normocephalic, atraumatic. Moist mucosa membranes. normal conjunctiva Neck: supple, nontender. Cardiovascular: Regular rate and rhythm, no murmurs Respiratory: Normal breath sounds, symmetric, no distress Abdomen: Soft, nontender, nondistended Pelvic: Declined secondary one in the office yesterday. Extremities: Nontender, no edema, pulses intact ?4 Neuro: no focal neurological deficits. Test Results: EKG: Sinus rate of 101, no ST changes. T wave inversion in leads III. QTc 469. Hemoglobin 13.3. Potassium 3.8, creatinine 0.8. HCG negative. Emergency Department Course and Treatment: Patient history concerns for near syncopal episode with no focal neurologic deficits. Given fluids. EKG labs stable. Hemoglobin 13.3. She declined pelvic due to having one yesterday in doctor's office. Discussed with patient she would not leave her NuvaRing off until her dysfunction bleeding resolved. Monitor symptoms. 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 Signs and symptoms discussed to return. All questions were answered. Treatment Plan: [] Disposition: Discharge Impression: 1. Near syncope 2. Dysfunctional uterine bleeding This note was generated with [employer] dictation software. It may contain incorrect words, spelling, and punctuation that were not noted in review of the chart loren or to signing ED Disposition - Plan for ED Patient: Disposition: Home or Assisted Living Diagnosis: Near syncope, Dysfunctional uterine bleeding Instructions: ED Near Syncope Unkn, ED Bleed Irregular Vaginal Referrals: Anna De La Rosa MD [Primary Care Provider] - Additional Instructions: Follow-up with your gynecology office reevaluation if bleeding persist. Hemoglobin 13.3 today
--- NOTE | 2018-08-04 01:18 | ED.RN ---
NO OLD EKGS IN MUES
[2018-08-04 01:31] LABS: Absolute Lymphocyte Count 3.14 X10^3/ul (0.83-4.51); Absolute Neutrophil Count 4.4 X10^3/uL (2.0-7.7); Basophil# 0.02 X10^3/uL; Basophil% 0.2 % (0-1); Eosinophil# 0.14 X10^3/uL; Eosinophils% 1.7 % (0-5); Hematocrit 40.4 % (37-47); Hemoglobin 13.3 g/dl (12.0-15.0); Lymphocyte # 3.14 X10^3/ul (4.0); Lymphocyte % 38.2 % (19-41); Mean Corp Hgb Conc 32.9 g/gl (32-36); Mean Corpuscular Hgb 28.7 pg (27.0-32.0); Mean Corpuscular Volume 87.1 fL (81-99); Mean Platelet Vol. 9.1 fl (6.2-12.0); Monocyte# 0.46 X10^3/uL; Monocyte% 5.6 % (0-10); Neutrophil # 4.42 X10^3/uL (2.7-7.7); Neutrophil % 53.9 % (47-70); Platelet Count 240 K/mm3 (150-450); RBC Distribution Width CV 12.7 % (11.6-14.6); RBC Distribution Width SD 40.7 fl (35.1-43.9); Red Blood Count 4.64 M/mm3 (4.2-5.4); White Blood Count 8.2 K/mm3 (4.4-11.0)
[2018-08-04 01:33] LABS: POSITIVE COUNT NO; POSITIVE DIFFERENTIAL NO; POSITIVE MORPHOLOGY NO
[2018-08-04 01:42] LABS: Anion Gap 9 (5-15); BUN 11 mg/dL (7-18); BUN/Creat Ratio 13.8 RATIO (10-20); Calcium,Total 9.2 mg/dL (8.5-10.1); Chloride 106 mmol/L (98-107); EST Glomerular Filtration Rate 97 mL/min (>60); Est Glom Filt Rate - Afr Amer 117 mL/min (>60); Estimated Creatinine Clearance 108.17 ml/min; Glucose 93 mg/dL (74-106); Potassium 3.8 mmol/L (3.5-5.1); Sodium Level 139 mmol/L (136-145)
[2018-08-04 01:56] LABS: Pregnancy, Serum, hCG Quali. NEGATIVE Negative (0-9 Nonpreg)
[2018-08-04 02:35] VITALS: PULSE 80; RESP 16; O2SAT 100
== END 2018-08-04 02:35 | disposition home or self-care (01) ==
PROVIDERS: Emergency Provider Emergency Medicine; Family Provider Internal Medicine; PCP Internal Medicine
DX: R55 Syncope and collapse (principal); N93.8 Other specified abnormal uterine and vaginal bleeding
CPT/HCPCS: 80048; 84703; 85025; 93005; 99283; J7030; J7040

== ENCOUNTER → 2018-08-05 09:37 | Outpatient (CLI) | payer MEDICAID, SELFPAY ==
[2018-08-05 09:02] VITALS: BMI 32.1
[2018-08-05 12:45] LABS: T4 Free Direct 1.05 ng/dL (0.76-1.46)
== END ==
PROVIDERS: Family Provider Internal Medicine; PCP Internal Medicine; Visit Provider Nurse Practitioner Family
DX: E03.9 Hypothyroidism, unspecified (principal)
CPT/HCPCS: 36415; 84439; 84443

== ENCOUNTER 2018-08-13 01:00 | Emergency (ER) | payer MEDICAID, SELFPAY ==
[2018-08-05 09:02] VITALS: BMI 32.1
[2018-08-13 01:01] VITALS: BP 143/84; PULSE 129; RESP 16; TEMP 36.7; O2SAT 97; BMI 29.0
--- NOTE | 2018-08-13 01:16 | ED.DCSUM_ITS ---
- ER Visit Summary Date of Service: 08/13/18 Chief Complaint: [] Abdominal pain History of Present Illness: The patient is a 23 F [] complaining of abdominal pain since this morning gradual onset continuous dull with occasional sharp pains. She feels it in her lower abdomen. Current severity is mild. Ass ociated with nausea. No vomiting. She has had normal bowel movements she is using Tylenol. She has had a history of normal colonoscopy and EGD. Her last menstrual period was 3 days ago she finished. He was in the emergency department for abdominal pain in November of last year. She had a negative lab workup and was discharged. She had a normal ultrasound of her gallbladder. She does have a history of irritable bowel syndrome. Physical Examination: Vital signs reviewed General: Well-nourished well-developed Head: Normocephalic atraumatic Eyes: Pupils equal round and reactive to light extraocular movements intact ENT: TMs clear no hemotympanum no trauma Neck: Nontender full range of motion Cardiovascular: Regular rate rhythm no murmurs normal S1-S2 Respiratory: No distress clear to auscultation bilaterally chest nontender Abdomen: Soft tender upper abdomen diffuse. Tender left lower quadrant and periumbilical nondistended normal bowel sounds no masses Back: Nontender no CVA tenderness Extremities: Nontender active range of motion ?4 extremities no trauma Skin: Normal color no trauma Neuro alert oriented cranial nerves II through XII intact normal strength s ensation reflexes Test Results: [] Emergency Department Course and Treatment: [] Given Toradol IV fluids and Zofran. Lab work obtained. CBC normal except for segs 88%. No elevation white blood cell count however. Chemistries normal. Lipase normal. Urinalysis shows 0-5 whites with rare bacteria. negative. Patient felt better after treatment. This could be an IBS flare just indigestion. It is more upper. Could be gastritis. She will use Pepto-Bismol and Tylenol today. I do not think she needs imaging studies. She is nontoxic. She has no tenderness over her appendix. I do not feel she needs repeat LFTs. She will follow-up as an outpatient. Treatment Plan: [] Disposition: [] Impression: [] Abdominal pain Nausea This note was generated with [employer] dictation software. It may contain incorrect words, spelling, and punctuation that were not noted in review of the chart prior to signing ED Disposition - Plan for ED Patient: Referrals: Anna De La Rosa MD [Primary Care Provider] -
[2018-08-13] MEDS: Ondansetron 4 MG/2 ML Vial IV (01:19)
[2018-08-13] MEDS: 0.9% Normal Saline 1,000 ML 1000 ML IV (01:19)
[2018-08-13] MEDS: Ketorolac 30 MG/ML Syringe IV (01:19)
[2018-08-13 01:40] LABS: Absolute Lymphocyte Count 0.71 X10^3/ul (0.83-4.51); Basophil# 0.01 X10^3/uL; Basophil% 0.1 % (0-1); Eosinophil# 0.05 X10^3/uL; Eosinophils% 0.6 % (0-5); Hematocrit 40.4 % (37-47); Hemoglobin 13.3 g/dl (12.0-15.0); Lymphocyte # 0.71 X10^3/ul (4.0); Lymphocyte % 7.8 % (19-41); Mean Corp Hgb Conc 32.9 g/gl (32-36); Mean Corpuscular Hgb 28.2 pg (27.0-32.0); Mean Corpuscular Volume 85.6 fL (81-99); Mean Platelet Vol. 8.8 fl (6.2-12.0); Monocyte# 0.26 X10^3/uL; Monocyte% 2.9 % (0-10); Neutrophil % 88.3 % (47-70); Platelet Count 208 K/mm3 (150-450); RBC Distribution Width CV 12.2 % (11.6-14.6); RBC Distribution Width SD 38.1 fl (35.1-43.9); Red Blood Count 4.72 M/mm3 (4.2-5.4); White Blood Count 9.1 K/mm3 (4.4-11.0)
[2018-08-13 01:41] LABS: POSITIVE COUNT NO; POSITIVE DIFFERENTIAL NO; POSITIVE MORPHOLOGY NO
[2018-08-13 01:57] LABS: Anion Gap 8 (5-15); BUN 11 mg/dL (7-18); BUN/Creat Ratio 15.6 RATIO (10-20); Calcium,Total 8.8 mg/dL (8.5-10.1); Chloride 105 mmol/L (98-107); Creatinine, Serum 0.71 mg/dL (0.55-1.02); EST Glomerular Filtration Rate 111 mL/min (>60); Est Glom Filt Rate - Afr Amer 135 mL/min (>60); Estimated Creatinine Clearance 121.89 ml/min; Glucose 117 mg/dL (74-106); Lipase 84 U/L (73-393); Potassium 3.5 mmol/L (3.5-5.1); Sodium Level 137 mmol/L (136-145)
[2018-08-13 02:14] LABS: Pregnancy, Serum, hCG Quali. NEGATIVE Negative (0-9 Nonpreg)
[2018-08-13 02:40] LABS: Red Blood Cells-Urine 0 SEEN /hpf (0-5)
[2018-08-13 02:41] LABS: Color, Urine Yellow (Yellow); Glucose, Dipstick Normal (Normal); Ketone-Dipstick Negative (Negative); Leukocyte Esterase-Dipstick 100 /ul (Negative); Nitrite-Dipstick Negative (Negative); Occult Blood-Urine Negative /ul (Negative); Protein-Dipstick Negative (Negative); Specific Gravity, Urine 1.015 (1.002-1.030); Urine Bilirubin Dipstick Negative (Negative); Urine Clarity Sl. Cloudy (Clear); Urine Urobilinogen Normal (Normal)
[2018-08-13 03:03] LABS: Squamous Epithelial Cells - UA 0-5 SEEN /hpf (5-10)
[2018-08-13 03:04] LABS: Bacteria RARE /hpf (None Seen); Mucous, Urine RARE /hpf (<or=2+); White Blood Cells 0-5 SEEN /hpf (0-5)
--- NOTE | 2018-08-13 03:15 | ED.DEP ---
ED Disposition - Plan for ED Patient: Disposition: Home or Assisted Living Instructions: ED Abdominal Pain Unkn Cause Prescriptions: Ondansetron [Zofran Odt] 4 mg PO Q8H PRN PRN #10 tab PRN Reason: Nausea Referrals: Anna De La Rosa MD [Primary Care Provider] -
[2018-08-13 03:23] VITALS: BP 124/78; PULSE 98; RESP 16; O2SAT 96
== END 2018-08-13 03:24 | disposition home or self-care (01) ==
PROVIDERS: Emergency Provider Emergency Medicine; Family Provider Internal Medicine; PCP Internal Medicine
DX: R10.9 Unspecified abdominal pain (principal); R11.0 Nausea; K58.9 Irritable bowel syndrome, unspecified
CPT/HCPCS: 80048; 81001; 83690; 84703; 85025; 96361; 96374; 96375; 99284; J7030; A4216; J2405

== ENCOUNTER 2018-08-14 14:32 | Emergency (ER) | payer MEDICAID, SELFPAY ==
[2018-08-13 01:01] VITALS: BMI 29.0
[2018-08-14 14:33] VITALS: BP 135/91; PULSE 114; RESP 18; TEMP 36.3; O2SAT 98; BMI 32.3
--- NOTE | 2018-08-14 14:43 | CT_ITS ---
STUDY: CT ABDOMEN AND PELVIS WITHOUT CONTRAST REASON FOR EXAM: Female, 23 years old. Lower abdominal pain for 3 days RADIATION DOSAGE (If Supplied By Facility): CTDIvol = ( 9.78 ) mGy, DLP = ( 532.46 ) mGycm TECHNIQUE: Transaxial images were obtained from the dome of the diaphragm to the symphysis pubis without oral contrast, and without intravenous contrast. Sagittal and coronal images were reconstructed. Individualized dose optimization techniques were used for this CT. COMPARISON: None. FINDINGS: The visualized lung bases are unremarkable. The visualized portions of the heart are within normal limits. Normal liver. Normal gallbladder and extrahepatic biliary system. Normal spleen. Normal pancreas. Normal bilateral adrenal glands. Normal right kidney. Slight fullness of the left collecting system including the calyces. No definitive hydroureter is seen. There are 2 punctate densities in the region of the distal left ureter on axial image 163 could represent a tiny distal ureteral calculi. Normal visualized stomach. Normal small intestine. Normal colon. The appendix is visualized and appears normal. Normal abdominal aorta. Normal inferior vena cava. Normal retroperitoneum. Normal urinary bladder. Fluid within the endometrial canal noted. Normal abdominal wall. Normal osseous structures. CT/Abdomen/Pelvis without Cont IMPRESSION: Possible tiny (1 mm) distal left ureter calculi with trace left hydronephrosis. Electronically Signed: Melo Boothe MD at 15:53 EDT , Service support ,
[2018-08-14] MEDS: 0.9% Normal Saline 1,000 ML 125 ML IV (15:10)
--- NOTE | 2018-08-14 15:24 | ED.VISSUMM ---
- ER Visit Summary Date of Service: 08/14/18 Chief Complaint: [Abdominal pain] History of Present Illness: The patient is a 23 F [presents the emergency department complaint of abdominal pain that started 2 days ago. 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 Patient had diarrhea and had about 6 watery episodes yesterday but none today. Patient continues to complain of lower abdominal pain. Her last menstrual period was 3-4 days ago. Patient had nausea but no vomiting. Patient has had subjective fever. Patient has history of IBS, hiatal hernia, and migraines. She denies urinary symptoms. Patient states she had a negative test yesterday.] Physical Examination: [HEENT-PERRLA, EOMI. Cranial nerves II through XII grossly intact. TMs clear. Mucous membranes moist. No adenopathy. Cardiovascular-regular rate and rhythm without murmur or ectopy Lungs-clear to auscultation, chest wall stable without crepitus or subcu emphysema Abdomen-normoactive bowel sounds, soft. Patient does have tenderness palpation over right lower quadrant with some guarding. There is no rebound, rigidity, or perineal signs. Extremities-intact ?4, normal range of motion, normal pulses, atraumatic] Test Results: [CBC with differential showing a 3.9, hemoglobin 12, hematocrit 38, platelets 175. History is unremarkable other than a slightly depressed potassium of 3.4. LFTs were normal. Urinalysis was normal. CT scan of the abdomen pelvis showed questionable 1 mm left distal ureter stone with mild hydro-.] Emergency Department Course and Treatment: [Patient initially medicated with Bentyl. I will give her dose of Toradol IV.] Treatment Plan: [Patient given a prescription for Topmost for pain.] Disposition: [Discharged home in stable condition] Impression: [Gastroenteritis Left ureteral kidney stone] This note was generated with [employer] dictation software. It may contain incorrect words, spelling, and punctuation that were not noted in review of the chart prior to signing ED Disposition - Plan for ED Patient: Referrals: Anna De La Rosa MD [Primary Care Provider] -
[2018-08-14] MEDS: Dicyclomine 20 MG/2 ML Vial IM (15:25)
[2018-08-14 15:37] LABS: Absolute Lymphocyte Count 1.17 X10^3/ul (0.83-4.51); Absolute Neutrophil Count 2.1 X10^3/uL (2.0-7.7); Basophil# 0.01 X10^3/uL; Basophil% 0.3 % (0-1); Eosinophil# 0.13 X10^3/uL; Eosinophils% 3.3 % (0-5); Hematocrit 38.2 % (37-47); Hemoglobin 12.4 g/dl (12.0-15.0); Lymphocyte # 1.17 X10^3/ul (4.0); Lymphocyte % 29.8 % (19-41); Mean Corp Hgb Conc 32.5 g/gl (32-36); Mean Corpuscular Hgb 28.2 pg (27.0-32.0); Mean Platelet Vol. 8.9 fl (6.2-12.0); Monocyte# 0.42 X10^3/uL; Monocyte% 10.7 % (0-10); Neutrophil # 2.13 X10^3/uL (2.7-7.7); Neutrophil % 54.4 % (47-70); Platelet Count 175 K/mm3 (150-450); RBC Distribution Width CV 12.5 % (11.6-14.6); Red Blood Count 4.39 M/mm3 (4.2-5.4); White Blood Count 3.9 K/mm3 (4.4-11.0)
[2018-08-14 15:40] LABS: POSITIVE COUNT NO; POSITIVE DIFFERENTIAL NO; POSITIVE MORPHOLOGY NO
[2018-08-14 16:05] LABS: Mucous, Urine 0 SEEN /hpf (<or=2+); Red Blood Cells-Urine 0 SEEN /hpf (0-5)
[2018-08-14 16:09] LABS: Color, Urine Yellow (Yellow); Glucose, Dipstick Normal (Normal); Ketone-Dipstick Negative (Negative); Leukocyte Esterase-Dipstick 100 /ul (Negative); Nitrite-Dipstick Negative (Negative); Occult Blood-Urine Negative /ul (Negative); Protein-Dipstick Negative (Negative); Urine Bilirubin Dipstick Negative (Negative); Urine Clarity Clear (Clear); Urine Urobilinogen Normal (Normal); Urine pH 6.5 (5.0 - 8.0)
[2018-08-14 16:26] LABS: Bacteria RARE /hpf (None Seen); Squamous Epithelial Cells - UA 0-5 SEEN /hpf (5-10); White Blood Cells 0-5 SEEN /hpf (0-5)
[2018-08-14 16:28] LABS: AST(SGOT) 17 U/L (15-37); Alanine Aminotransfer ALT/SGPT 25 U/L (13-56); Albumin, Serum 3.1 g/dL (3.2-5.0); Alkaline Phosphatase 51 U/L (45-117); Anion Gap 7 (5-15); BUN 7 mg/dL (7-18); BUN/Creat Ratio 12.1 RATIO (10-20); Calcium,Total 8.3 mg/dL (8.5-10.1); Chloride 111 mmol/L (98-107); Creatinine, Serum 0.58 mg/dL (0.55-1.02); EST Glomerular Filtration Rate 140 mL/min (>60); Est Glom Filt Rate - Afr Amer 170 mL/min (>60); Estimated Creatinine Clearance 149.21 ml/min; Globulin 3.1 g/dL (2.2-4.2); Glucose 91 mg/dL (74-106); Potassium 3.4 mmol/L (3.5-5.1); Protein, Total 6.2 g/dL (6.4-8.2); Sodium Level 143 mmol/L (136-145)
--- NOTE | 2018-08-14 16:37 | ED.DEP ---
ED Disposition - Plan for ED Patient: Instructions: ED Stone Renal W Colic, ED Gastroenteritis Viral Prescriptions: Hydrocodone Bitart/Apap 5-325 [[place] 5MG-325MG] 1 tab PO Q4H PRN PRN 2 Days #10 tab PRN Reason: Pain Referrals: Anna De La Rosa MD [Primary Care Provider] - 3-5 Days
[2018-08-14 16:55] VITALS: BP 101/69; PULSE 84; RESP 17; O2SAT 99
--- NOTE | 2018-08-14 16:55 | ED.RN ---
IV DC'ED, CATHETER INTACT, SMALL GAUZE DRESSING PLACED. DISCHARGE INSTRUCTIONS GIVEN TO AND REVIEWED WITH PATIENT, PATIENT DENIES QUESTIONS OR CONCERNS AND VOICES UNDERSTANDING OF DISCHARGE INSTRUCTIONS. PT AMBULATES OUT OF ROOM WITHOUT DIFFICULTY.
== END 2018-08-14 16:56 | disposition home or self-care (01) ==
LOC: ED 14:56
PROVIDERS: Emergency Provider Emergency Medicine; Family Provider Internal Medicine; PCP Internal Medicine
DX: K52.9 Noninfective gastroenteritis and colitis, unspecified (principal); N13.2 Hydronephrosis with renal and ureteral calculous obstruction
CPT/HCPCS: 74176; 80053; 81001; 85025; 96360; 96361; 96372; 99284; J7030; A4216

== ENCOUNTER → 2018-09-10 07:13 | Outpatient (CLI) | payer MEDICAID, SELFPAY ==
[2018-09-08 14:44] VITALS: BMI 32.3
[2018-09-10 08:46] LABS: Absolute Lymphocyte Count 4.07 X10^3/ul (0.83-4.51); Absolute Neutrophil Count 3.8 X10^3/uL (2.0-7.7); Basophil# 0.04 X10^3/uL; Basophil% 0.5 % (0-1); Eosinophil# 0.28 X10^3/uL; Eosinophils% 3.2 % (0-5); Hematocrit 38.3 % (37-47); Hemoglobin 12.4 g/dl (12.0-15.0); Lymphocyte # 4.07 X10^3/ul (4.0); Lymphocyte % 46.2 % (19-41); Mean Corp Hgb Conc 32.4 g/gl (32-36); Mean Corpuscular Hgb 27.8 pg (27.0-32.0); Mean Corpuscular Volume 85.9 fL (81-99); Monocyte# 0.55 X10^3/uL; Monocyte% 6.2 % (0-10); Neutrophil % 43.1 % (47-70); POSITIVE COUNT NO; POSITIVE DIFFERENTIAL NO; POSITIVE MORPHOLOGY NO; Platelet Count 275 K/mm3 (150-450); RBC Distribution Width CV 12.8 % (11.6-14.6); RBC Distribution Width SD 40.4 fl (35.1-43.9); Red Blood Count 4.46 M/mm3 (4.2-5.4); White Blood Count 8.8 K/mm3 (4.4-11.0)
[2018-09-10 09:07] LABS: Anion Gap 7 (5-15); BUN 14 mg/dL (7-18); BUN/Creat Ratio 16.4 RATIO (10-20); Calcium,Total 9.3 mg/dL (8.5-10.1); Chloride 105 mmol/L (98-107); Creatinine, Serum 0.86 mg/dL (0.55-1.02); EST Glomerular Filtration Rate 89 mL/min (>60); Est Glom Filt Rate - Afr Amer 108 mL/min (>60); Glucose 84 mg/dL (74-106); Potassium 3.8 mmol/L (3.5-5.1); Sodium Level 138 mmol/L (136-145)
[2018-09-10 09:22] LABS: T4 Free Direct 1.05 ng/dL (0.76-1.46)
== END ==
PROVIDERS: Nurse Practitioner Family; Family Provider Internal Medicine; PCP Internal Medicine; Referring Provider Internal Medicine; Visit Provider Internal Medicine
DX: R10.9 Unspecified abdominal pain (principal); E03.9 Hypothyroidism, unspecified
CPT/HCPCS: 36415; 80048; 84439; 84443; 85025

== ENCOUNTER → 2018-09-22 14:07 | Outpatient (CLI) | payer MEDICAID, SELFPAY ==
[2018-09-08 14:44] VITALS: BMI 32.3
[2018-09-22 14:33] LABS: Red Blood Cells-Urine 0 SEEN /hpf (0-5)
[2018-09-22 14:37] LABS: Color, Urine Yellow (Yellow); Glucose, Dipstick Normal (Normal); Ketone-Dipstick Negative (Negative); Leukocyte Esterase-Dipstick 500 /ul (Negative); Nitrite-Dipstick Negative (Negative); Occult Blood-Urine Negative /ul (Negative); Protein-Dipstick 15 mg/dl (Negative); Specific Gravity, Urine 1.015 (1.002-1.030); Urine Bilirubin Dipstick Negative (Negative); Urine Clarity Sl. Cloudy (Clear); Urine Urobilinogen Normal (Normal); Urine pH 6.5 (5.0 - 8.0)
[2018-09-22 14:54] LABS: Squamous Epithelial Cells - UA 10-25 SEEN /hpf (5-10)
[2018-09-22 14:55] LABS: Mucous, Urine 1+ /hpf (<or=2+); White Blood Cells 10-25 SEEN /hpf (0-5)
[2018-09-22 14:56] LABS: Bacteria 3+ /hpf (None Seen)
== END ==
PROVIDERS: Family Provider Internal Medicine; PCP Internal Medicine; Referring Provider Nurse Practitioner Family; Visit Provider Nurse Practitioner Family
DX: R30.0 Dysuria (principal)
CPT/HCPCS: 81001; 87086; 87088

== ENCOUNTER → 2018-09-24 15:09 | Outpatient (CLI) | payer MEDICAID, SELFPAY ==
[2018-09-08 14:44] VITALS: BMI 32.3
== END ==
PROVIDERS: Family Provider Internal Medicine; PCP Internal Medicine; Referring Provider Nurse Practitioner Family; Visit Provider Nurse Practitioner Family
DX: R30.0 Dysuria (principal)
CPT/HCPCS: 87086; 87088

== ENCOUNTER 2018-09-27 21:17 | Emergency (ER) | payer MEDICAID, SELFPAY ==
[2018-09-08 14:44] VITALS: BMI 32.3
[2018-09-27 21:18] VITALS: BP 140/81; PULSE 113; RESP 20; TEMP 36.6; O2SAT 97; BMI 29.0
--- NOTE | 2018-09-27 22:59 | CT_ITS ---
STUDY: CT ABDOMEN AND PELVIS WITHOUT CONTRAST REASON FOR EXAM: Female, 23 years old. Flank pain RADIATION DOSAGE (If Supplied By Facility): CTDIvol = ( 15.01 ) mGy, DLP = ( 810.27 ) mGycm TECHNIQUE: Transaxial images were obtained from the dome of the diaphragm to the symphysis pubis without oral contrast, and without intravenous contrast. Sagittal and coronal images were reconstructed. Individualized dose optimization techniques were used for this CT. COMPARISON: 08/14/2018 FINDINGS: The visualized lung bases are unremarkable. The visualized portions of the heart are within normal limits. Normal liver. The gallbladder is contracted. There is borderline splenomegaly. Normal pancreas. Normal bilateral adrenal glands. Normal right kidney. Normal left kidney. Normal visualized stomach. Normal small intestine. Normal colon. The appendix is visualized and the exception of radiopaque material appears normal. No evidence of surrounding inflammation. Normal abdominal aorta. Normal inferior vena cava. Normal retroperitoneum. Normal urinary bladder. Normal visualized uterus. There is a pessary type device within the vagina. Normal abdominal wall. Normal osseous structures. CT/Abdomen/Pelvis without Cont IMPRESSION: No evidence of renal ureteral bladder calculi. No visualized evidence of renal edema allowing for technique. Electronically Signed: Klaudia Hackett MD at 0:01 EDT Tel , Service support ,
[2018-09-27 23:11] LABS: Absolute Lymphocyte Count 2.83 X10^3/ul (0.83-4.51); Basophil# 0.02 X10^3/uL; Basophil% 0.2 % (0-1); Eosinophil# 0.13 X10^3/uL; Eosinophils% 1.5 % (0-5); Lymphocyte # 2.83 X10^3/ul (4.0); Lymphocyte % 33.7 % (19-41); Mean Corp Hgb Conc 33.3 g/gl (32-36); Mean Corpuscular Hgb 28.5 pg (27.0-32.0); Mean Corpuscular Volume 85.5 fL (81-99); Mean Platelet Vol. 9.3 fl (6.2-12.0); Monocyte# 0.44 X10^3/uL; Monocyte% 5.2 % (0-10); Neutrophil # 4.95 X10^3/uL (2.7-7.7); Neutrophil % 58.9 % (47-70); Platelet Count 261 K/mm3 (150-450); RBC Distribution Width CV 12.5 % (11.6-14.6); RBC Distribution Width SD 38.7 fl (35.1-43.9); Red Blood Count 4.91 M/mm3 (4.2-5.4); White Blood Count 8.4 K/mm3 (4.4-11.0)
[2018-09-27 23:12] LABS: POSITIVE COUNT NO; POSITIVE DIFFERENTIAL NO; POSITIVE MORPHOLOGY NO
[2018-09-27 23:14] LABS: Anion Gap 8 (5-15); BUN 11 mg/dL (7-18); BUN/Creat Ratio 15.7 RATIO (10-20); Calcium,Total 9.6 mg/dL (8.5-10.1); Chloride 108 mmol/L (98-107); EST Glomerular Filtration Rate 112 mL/min (>60); Est Glom Filt Rate - Afr Amer 136 mL/min (>60); Estimated Creatinine Clearance 123.63 ml/min; Glucose 102 mg/dL (74-106); Internal QC Validated? YES +Cl - CLEAR BKGD; Potassium 3.9 mmol/L (3.5-5.1); Pregnancy, Serum, hCG Quali. NEGATIVE Negative; Sodium Level 140 mmol/L (136-145)
[2018-09-27 23:22] LABS: Color, Urine Yellow (Yellow); Glucose, Dipstick Normal (Normal); Ketone-Dipstick Negative (Negative); Leukocyte Esterase-Dipstick 500 /ul (Negative); Nitrite-Dipstick Negative (Negative); Occult Blood-Urine 25 /ul (Negative); Protein-Dipstick 30 mg/dl (Negative); Specific Gravity, Urine 1.025 (1.002-1.030); Urine Bilirubin Dipstick Negative (Negative); Urine Clarity Sl. Cloudy (Clear); Urine Urobilinogen Normal (Normal)
[2018-09-27] MEDS: Ketorolac 30 MG/ML Syringe IV (23:25)
[2018-09-27] MEDS: 0.9% Normal Saline 1,000 ML 1000 ML IV (23:25)
[2018-09-27 23:26] VITALS: RESP 18
[2018-09-27 23:28] LABS: Bacteria 2+ /hpf (None Seen); Mucous, Urine 1+ /hpf (<or=2+); Red Blood Cells-Urine 0-5 SEEN /hpf (0-5); Squamous Epithelial Cells - UA 5-10 SEEN /hpf (5-10); White Blood Cells 50-100 SEEN /hpf (0-5)
--- NOTE | 2018-09-28 00:28 | ED.VISSUMM ---
- ER Visit Summary Date of Service: 09/28/18 Chief Complaint: Bilateral flank pain and frequency History of Present Illness: The patient is a 23 F with back pain for the past with both. Patient was initially treated with pain meds thinking it was muscular skeletal pain but did not have significant improvement. Patient is now undergoing work-up for her kidneys. She states they found something in her urine and she is awaiting culture results. Pain was worse tonight so she came in for evaluation. She does have a history of a prior kidney stone. She also has IBS. Physical Examination: Vital signs significant for heart rate of 113, otherwise unremarkable. Head neck examination is normal. Heart is regular rate and rhythm. Lung sounds are clear. Abdomen is soft with mild diffuse tenderness. No guarding or rebound. She does have mild right CVA tenderness. Test Results: CBC and chemistry studies normal. Urinalysis shows 500 leukocyte esterase, 50-100 white cells, and 5-10 epithelial cells. 2+ bacteria is noted. test is negative. CT flank shows no evidence of calculi or renal edema. Urine culture has been sent. Emergency Department Course and Treatment: Patient is given IV fluids and Toradol. On repeat evaluation she is resting comfortably. Test results are discussed with her. Patient will be given Bactrim and Toradol for home to try. Treatment Plan: [] Disposition: Discharge Impression: Cystitis This note was generated with [employer] dictation software. It may contain incorrect words, spelling, and punctuation that were not noted in review of the chart prior to signing ED Disposition - Plan for ED Patient: Disposition: Home or Assisted Living Instructions: ED UTI Cystitis Female Prescriptions: Smz/Tmp Ds [Bactrim Ds] 1 tablet PO BID #10 tablet Ketorolac [Toradol] 10 mg PO Q6H PRN #14 tablet PRN Reason: Pain Referrals: Anna De La Rosa MD [Primary Care Provider] - 1 Week
[2018-09-28] MEDS: Smz/Tmp Ds Tablet 1 TABLET PO (00:42)
[2018-09-28 00:46] VITALS: BP 124/87; PULSE 89; RESP 14; O2SAT 97
== END 2018-09-28 00:46 | disposition home or self-care (01) ==
PROVIDERS: Emergency Provider Emergency Medicine; Family Provider Internal Medicine; PCP Internal Medicine
DX: N30.90 Cystitis, unspecified without hematuria (principal); K58.9 Irritable bowel syndrome, unspecified; Z87.442 Personal history of urinary calculi
CPT/HCPCS: 74176; 80048; 81001; 84703; 85025; 87086; 87088; 96361; 96374; 99285; J7030; A4216

== ENCOUNTER 2018-10-02 14:17 | Emergency (ER) | payer MEDICAID, SELFPAY ==
[2018-10-02 14:17] VITALS: BP 135/88; PULSE 102; RESP 16; TEMP 36.9; O2SAT 98; BMI 33.4
--- NOTE | 2018-10-02 14:36 | US_ITS ---
STUDY: ABDOMINAL ULTRASOUND - RIGHT UPPER QUADRANT REASON FOR VISIT: Female, 23 years old. Right upper quadrant pain TECHNIQUE: Ultrasound evaluation of the right upper quadrant was performed with real-time and static rivera-scale imaging. TECHNICAL QUALITY: Adequate. COMPARISON: None. FINDINGS: Liver: The liver measures 18 cm. There is normal echogenicity of the liver. The bile ducts are within normal limits. There is hepatic color flow. The direction of portal flow is hepatopetal. There is no demonstrated mass lesion. Gallbladder: Normal distended gallbladder. The gallbladder wall measures 2 mm. There is a negative sonographic Katz's sign. There is no pericholecystic fluid. There are no gallstones. Common Bile Duct (C.B.D.): The common bile duct measures 3 mm. Pancreas: Normal size of the head, body and tail of the pancreas. There is normal echogenicity of the pancreas. There is no demonstrated pancreatic mass or cyst. Right Kidney: Normal size of the right kidney. The right kidney measures 12.3 x 5.1 x 4.4 cm. Normal renal cortex. The right cortex measures 1.9 cm. There is no demonstrated renal mass or cyst. There is no right hydronephrosis. US/Gallbladder IMPRESSION: Normal right upper quadrant ultrasound examination. Electronically Signed: Melo Boothe MD at 16:02 EDT , Service support ,
--- NOTE | 2018-10-02 14:37 | ED.VISSUMM ---
- ER Visit Summary Date of Service: 10/02/18 Chief Complaint: Abdominal pain History of Present Illness: The patient is a 23 F who presents for abdominal pain that started yesterday. Patient is currently being treated for a urinary tract infection and is on Bactrim. She states her urinary symptoms have resolved, and she no longer has dysuria, hematuria, frequency or urgency. She started having pain radiating from the right upper quadrant to the left upper quadrant, and now is radiating into the back. Pain is worse in the epigastric region. It is worse with movement and with eating. Patient has associated nausea. Denies fever, chest pain, shortness of breath. Patient has tried Toradol with some relief. Patient has a history of IBS. She states this pain pain is different from her prior symptoms. Patient still has her gallbladder. She denies alcohol or tobacco use. Physical Examination: Vital signs: afebrile, hemodynamically stable, no hypoxia on room air General: well nourished, well developed, in no distress Skin: warm, dry, no rash, no pallor HEENT: normocephalic and atraumatic; PERRL, EOMI, moist mucous membranes Cardiovascular: Mildly tachycardic rate and rhythm without murmurs, no peripheral edema, 2+ pulses all distal extremities Respiratory: No increased work of breathing, lungs are clear to auscultation bilaterally, no rales, rhonchi or wheezing Abdominal: Abdomen is soft, tender in the right upper quadrant in the epigastrium with normoactive bowel sounds, no guarding or rebound, no masses MSK: Moves all extremities, no deformities, normal strength Neuro: Awake and alert, oriented ?4. No facial droop, sensation and motor function intact and symmetric Test Results: Abnormal Lab Results 10/02/18 10/02/18 10/02/18 14:42 14:42 14:45 WBC 6.5 RBC 4.43 Hgb 12.6 Hct 37.3 MCV 84.2 MCH 28.4 MCHC 33.8 RDW 12.4 RDW Differential 37.6 Plt Count 227 MPV 9.1 Immature Gran % (Auto) 0.300 Neut % (Auto) 58.6 Lymph % (Auto) 32.4 [place] % (Auto) 6.7 Eos % (Auto) 1.8 Baso % (Auto) 0.2 Absolute Neuts (auto) 3.8 Absolute Lymphs (auto) 2.11 Total Counted Not Reportable Sodium 140 Potassium 4.0 Chloride 110 H Carbon Dioxide 24.0 Anion Gap 6 BUN 12 Creatinine 0.76 Estim Creat Clear Calc 113.87 Est GFR (MDRD) Af Amer 124 Est GFR (MDRD) Non-Af 103 BUN/Creatinine Ratio 15.9 Glucose 108 H Calcium 8.8 Total Bilirubin 0.20 AST 13 L ALT 19 Alkaline Phosphatase 31 L Total Protein 6.9 Albumin 3.6 Globulin 3.3 Albumin/Globulin Ratio 1.1 Lipase 103 Urine Color Urine Clarity Urine pH Ur Specific [place] Urine Protein Urine Glucose (UA) Urine Ketones Urine Occult Blood Urine Nitrite Urine Bilirubin Urine Urobilinogen Ur Leukocyte Esterase Urine RBC Urine WBC Ur Squamous Epith Cells Urine Bacteria Urine Mucus Urine Test Negative 10/02/18 14:45 WBC RBC Hgb Hct MCV MCH MCHC RDW RDW Differential Plt Count MPV Immature Gran % (Auto) Neut % (Auto) Lymph % (Auto) [place] % (Auto) Eos % (Auto) Baso % (Auto) Absolute Neuts (auto) Absolute Lymphs (auto) Total Counted Sodium Potassium Chloride Carbon Dioxide Anion Gap BUN Creatinine Estim Creat Clear Calc Est GFR (MDRD) Af Amer Est GFR (MDRD) Non-Af BUN/Creatinine Ratio Glucose Calcium Total Bilirubin AST ALT Alkaline Phosphatase Total Protein Albumin Globulin Albumin/Globulin Ratio Lipase Urine Color Yellow Urine Clarity Clear Urine pH 6.0 Ur Specific [place] 1.015 Urine Protein 15 H Urine Glucose (UA) Normal Urine Ketones Negative Urine Occult Blood Negative Urine Nitrite Negative Urine Bilirubin Negative Urine Urobilinogen Normal Ur Leukocyte Esterase 100 H Urine RBC 0 SEEN Urine WBC 0-5 SEEN Ur Squamous Epith Cells 0-5 SEEN Urine Bacteria 1+ Urine Mucus 0 SEEN Urine Test Clinical Impression(s) from Imaging Studies Gallbladder Ultrasound 10/02/18 14:36 IMPRESSION: Normal right upper quadrant ultrasound examination. Electronically Signed: Melo Boothe MD at 16:02 EDT , Service support , Medications Given Discontinued Medications Sodium Chloride () 1,000 mls @ 1,000 mls/hr IV .Q1H ONE Stop: 10/02/18 15:34 Last Admin: 10/02/18 14:57 Dose: 1,000 mls/hr Ketorolac Tromethamine (Toradol) 15 mg IV X1 ONE Stop: 10/02/18 14:36 Last Admin: 10/02/18 14:57 Dose: Not Given Ondansetron HCl (Zofran) 4 mg IV X1 ONE Stop: 10/02/18 14:36 Last Admin: 10/02/18 14:57 Dose: 4 mg Emergency Department Course and Treatment: Patient was given Zofran and Toradol for symptomatic relief. Patient had a CT scan 5 days ago that was unremarkable thus no CT scan will be repeated today. Because of the right upper quadrant and epigastric pain, dedicated right upper quadrant ultrasound will be performed to evaluate for cholelithiasis or cholecystitis. Patient had no leukocytosis, no electrolyte derangements, normal hepatic function, normal lipase, urine negative for infection, negative test. Right upper quadrant ultrasound showed no acute process. On reevaluation, patient had improvement in her symptoms with the pain medications. She was given a prescription for Zofran and Pepcid. At this time there is no concerning findings on her work-up that would require additional work-up or admission. Patient will follow-up with her doctor that manages her IBS for further evaluation. Patient discharged home in improved condition. Treatment Plan: [] Disposition: [] Impression: Gastritis This note was generated with [employer] dictation software. It may contain incorrect words, spelling, and punctuation that were not noted in review of the chart prior to signing ED Disposition - Plan for ED Patient: Disposition: Home or Assisted Living Instructions: ED Epigastric Pain [facility], ED Gastritis Prescriptions: Ondansetron [Zofran Odt] 4 mg PO Q8H PRN PRN #10 tab PRN Reason: Nausea Famotidine [Pepcid] 20 mg PO BID #28 tab Referrals: Anna De La Rosa MD [Primary Care Provider] - 3-5 Days if not improving Additional Instructions: If you have any worsening of your condition or any new concerning symptoms, please return immediately to the emergency department for another evaluation.
[2018-10-02] MEDS: Ondansetron 4 MG/2 ML Vial IV (14:57)
[2018-10-02] MEDS: 0.9% Normal Saline 1,000 ML 1000 ML IV (14:57)
[2018-10-02 15:01] LABS: Mucous, Urine 0 SEEN /hpf (<or=2+); Red Blood Cells-Urine 0 SEEN /hpf (0-5)
[2018-10-02 15:03] LABS: Absolute Lymphocyte Count 2.11 X10^3/ul (0.83-4.51); Absolute Neutrophil Count 3.8 X10^3/uL (2.0-7.7); Basophil# 0.01 X10^3/uL; Basophil% 0.2 % (0-1); Eosinophil# 0.12 X10^3/uL; Eosinophils% 1.8 % (0-5); Hematocrit 37.3 % (37-47); Hemoglobin 12.6 g/dl (12.0-15.0); Lymphocyte # 2.11 X10^3/ul (4.0); Lymphocyte % 32.4 % (19-41); Mean Corp Hgb Conc 33.8 g/gl (32-36); Mean Corpuscular Hgb 28.4 pg (27.0-32.0); Mean Corpuscular Volume 84.2 fL (81-99); Mean Platelet Vol. 9.1 fl (6.2-12.0); Monocyte# 0.44 X10^3/uL; Monocyte% 6.7 % (0-10); Neutrophil # 3.82 X10^3/uL (2.7-7.7); Neutrophil % 58.6 % (47-70); Platelet Count 227 K/mm3 (150-450); RBC Distribution Width CV 12.4 % (11.6-14.6); RBC Distribution Width SD 37.6 fl (35.1-43.9); Red Blood Count 4.43 M/mm3 (4.2-5.4); White Blood Count 6.5 K/mm3 (4.4-11.0)
[2018-10-02 15:04] LABS: POSITIVE COUNT NO; POSITIVE DIFFERENTIAL NO; POSITIVE MORPHOLOGY NO
[2018-10-02 15:04] LABS: Color, Urine Yellow (Yellow); Glucose, Dipstick Normal (Normal); Ketone-Dipstick Negative (Negative); Leukocyte Esterase-Dipstick 100 /ul (Negative); Nitrite-Dipstick Negative (Negative); Occult Blood-Urine Negative /ul (Negative); Protein-Dipstick 15 mg/dl (Negative); Specific Gravity, Urine 1.015 (1.002-1.030); Urine Bilirubin Dipstick Negative (Negative); Urine Clarity Clear (Clear); Urine Urobilinogen Normal (Normal)
[2018-10-02 15:05] LABS: Internal QC Validated? YES +Cl - CLEAR BKGD; Pregnancy, Urine Negative Negative
[2018-10-02 15:09] LABS: Bacteria 1+ /hpf (None Seen); Squamous Epithelial Cells - UA 0-5 SEEN /hpf (5-10); White Blood Cells 0-5 SEEN /hpf (0-5)
[2018-10-02 15:22] LABS: ALB/GLOB Ratio 1.1 RATIO (0.9-2.4); AST(SGOT) 13 U/L (15-37); Alanine Aminotransfer ALT/SGPT 19 U/L (13-56); Albumin, Serum 3.6 g/dL (3.2-5.0); Alkaline Phosphatase 31 U/L (45-117); Anion Gap 6 (5-15); BUN 12 mg/dL (7-18); BUN/Creat Ratio 15.9 RATIO (10-20); Calcium,Total 8.8 mg/dL (8.5-10.1); Chloride 110 mmol/L (98-107); Creatinine, Serum 0.76 mg/dL (0.55-1.02); EST Glomerular Filtration Rate 103 mL/min (>60); Est Glom Filt Rate - Afr Amer 124 mL/min (>60); Estimated Creatinine Clearance 113.87 ml/min; Globulin 3.3 g/dL (2.2-4.2); Glucose 108 mg/dL (74-106); Lipase 103 U/L (73-393); Protein, Total 6.9 g/dL (6.4-8.2); Sodium Level 140 mmol/L (136-145)
[2018-10-02 15:59] VITALS: BP 119/70; PULSE 74; RESP 18; O2SAT 100
== END 2018-10-02 16:21 | disposition home or self-care (01) ==
PROVIDERS: Emergency Provider Emergency Medicine; Family Provider Internal Medicine; PCP Internal Medicine
DX: K29.70 Gastritis, unspecified, without bleeding (principal); N39.0 Urinary tract infection, site not specified
CPT/HCPCS: 76705; 80053; 81001; 81025; 83690; 85025; 99283; J7030; A4216; J2405

== ENCOUNTER → 2018-10-08 12:25 | Outpatient (CLI) | payer MEDICAID, SELFPAY ==
[2018-10-02 14:17] VITALS: BMI 33.4
--- NOTE | 2018-10-08 12:27 | US_ITS ---
STUDY: ULTRASOUND OF THE FEMALE PELVIS - COMPLETE REASON FOR EXAM: Female, 23 years old. Irregular menses. Abnormal findings on CT pessary. LMP: 09/30/2018. TECHNIQUE: Transabdominal and transvaginal. TECHNICAL QUALITY: Adequate. COMPARISON: CT abdomen and pelvis 09/27/2018. FINDINGS: The uterus is anteverted and is in a midline position. The uterus measures 7.7 x 4.1 x 4.4 cm. Normal uterine cervix. The endometrium measures 9.0 mm in thickness, and is hyperechoic. There is no demonstrated endometrial mass. There is no demonstrated myometrial mass. I.U.D. - The patient does not have an I.U.D. The right ovary is visualized. The right ovary measures 2.6 x 1.3 x 2.3 cm. There is no right ovarian cyst or ovarian mass. There is no visualized right adnexal mass or complex lesion. There is normal arterial and normal venous vascularity. The left ovary is visualized. The left ovary measures 2.7 x 2.8 x 1.7 cm. There is no left ovarian cyst or ovarian mass. There is no visualized left adnexal mass or complex lesion. There is normal arterial and normal venous vascularity. There is no fluid in the cul-de-sac. The pre void volume of the bladder was 823 ml. US/Pelvic (Non ) IMPRESSION: Normal female pelvis. COMMENT: No visible pessary on ultrasound. Electronically Signed: Gabriel Lewis MD at 11:04 EDT , Service support ,
--- NOTE | 2018-10-08 12:27 | US_ITS ---
STUDY: ULTRASOUND OF THE FEMALE PELVIS - COMPLETE REASON FOR EXAM: Female, 23 years old. Irregular menses. Abnormal findings on CT pessary. LMP: 09/30/2018. TECHNIQUE: Transabdominal and transvaginal. TECHNICAL QUALITY: Adequate. COMPARISON: CT abdomen and pelvis 09/27/2018. FINDINGS: The uterus is anteverted and is in a midline position. The uterus measures 7.7 x 4.1 x 4.4 cm. Normal uterine cervix. The endometrium measures 9.0 mm in thickness, and is hyperechoic. There is no demonstrated endometrial mass. There is no demonstrated myometrial mass. I.U.D. - The patient does not have an I.U.D. The right ovary is visualized. The right ovary measures 2.6 x 1.3 x 2.3 cm. There is no right ovarian cyst or ovarian mass. There is no visualized right adnexal mass or complex lesion. There is normal arterial and normal venous vascularity. The left ovary is visualized. The left ovary measures 2.7 x 2.8 x 1.7 cm. There is no left ovarian cyst or ovarian mass. There is no visualized left adnexal mass or complex lesion. There is normal arterial and normal venous vascularity. There is no fluid in the cul-de-sac. The pre void volume of the bladder was 823 ml. US/Transvaginal Non- IMPRESSION: Normal female pelvis. COMMENT: No visible pessary on ultrasound. Electronically Signed: Gabriel Lewis MD at 11:04 EDT , Service support ,
== END ==
PROVIDERS: Family Provider Internal Medicine; PCP Internal Medicine; Referring Provider Urology; Visit Provider Urology
DX: R93.49 Abnormal radiologic findings on diagnostic imaging of other urinary organs (principal); N92.6 Irregular menstruation, unspecified
CPT/HCPCS: 76830; 76856

== ENCOUNTER 2018-10-17 03:34 | Emergency (ER) | payer MEDICAID, SELFPAY ==
[2018-10-17 03:35] VITALS: BP 153/99; PULSE 109; RESP 20; TEMP 37.3; O2SAT 100; BMI 34.2
--- NOTE | 2018-10-17 03:47 | CT_ITS ---
HISTORY: LT FLANK PAIN THIS AM,ELEVATED WBC HX:GERD,IBS,KIDNEY STONES EXAMINATION: CT Abdomen And Pelvis W/O Contrast TECHNIQUE: Helically acquired images were obtained of the abdomen and pelvis without oral or IV contrast as per renal stone protocol. A radiation dose optimization technique was used for this scan. IV Contrast dosage and agent: None. Oral contrast: None. COMPARISON: 09/27/2018 FINDINGS: Lower thorax: Right middle lobe 4 mm pleural-based nodule and left lower lobe 3 mm pleural-based nodule. The nodules are noncalcified and appears stable. No pleural effusion. Limited non-infusion exam. Allowing for this, normal liver, spleen, pancreas, gallbladder, and biliary system. Tiny accessory spleen. Both kidneys are normal in position. No renal or ureteral calculi and no hydronephrosis or hydroureter. Adrenal glands are not enlarged. Abdominal aorta is normal in caliber. No ascites or retroperitoneal lymph node enlargement. GI tract: No obstruction. Normal appendix. Constipation pattern with large fecal residue within the right and transverse colon and moderate stool within the left and rectosigmoid colon. Considerable food debris within the stomach lumen. Pelvis: Anteverted uterus which is normal in size. No free fluid or lymph node enlargement. Urinary bladder is poorly distended. Right ovarian 1.8 cm cyst. Bones: No acute osseous abnormality. CT/Abdomen/Pelvis without Cont IMPRESSION: 1. Constipation pattern. No urolithiasis, hydronephrosis, or acute abdominal disease identified. 2. Right middle lobe and left lower lobe small pleural-based nodules, unchanged. 3. Right ovarian 1.8 cm cyst. Individualized dose optimization techniques were used for this CT. at 0443 Reported and signed by: Barrera Smith MD Electronically Signed: Barrera Smith, at 4:42 EDT Tel , Service support ,
--- NOTE | 2018-10-17 03:48 | ED.VISSUMM ---
- ER Visit Summary Date of Service: 10/17/18 Chief Complaint: Left flank pain History of Present Illness: The patient is a 23 F who presents with left lower quadrant and left flank pain that began today. Patient states she was sitting at work when the pain began. Patient describes the pain as aching and sharp. Patient admits to nausea but denies any vomiting. Patient denies any diarrhea, melena, or hematochezia. Patient denies any dysuria or hematuria. Patient denies any abnormal vaginal bleeding or discharge. Patient admits to subjective chills but denies any fevers. Physical Examination: Vital signs are stable. Patient is afebrile. Patient is in no acute distress. Oral mucosa is pink and moist. Neck is supple. Trachea is midline. There is no JVD noted. Heart was regular rate and rhythm. Lungs are clear and equal bilaterally. Abdomen is soft. Bowel sounds are normal. There is left lower quadrant and left CVA tenderness. There is no rebound or guarding noted. 12 are intact. There are no focal motor or sensory deficits noted. Test Results: CBC showed a mild leuk of 11 point. Basic metabolic profile was normal. Urinalysis shows leukocyte esterase of 500 with 10-25 white blood cells and 5-[address] scan of the abdomen and pelvis shows constipation pattern. There is no urinary calculus. There is no acute intra-abdominal process noted. Emergency Department Course and Treatment: Patient was given IV fluids, Toradol, and Zofran. Patient was advised of her results. Patient was given prescription for Bactrim. Patient was instructed to take laxatives as needed for constipation. Patient was instructed to follow-up with her primary care physician in 5 to 7 days. Patient understood and was agreeable with the plan. All questions were answered. Disposition: Discharge home Impression: 1. Urinary tract infection 2. Constipation This note was generated with [employer] dictation software. It may contain incorrect words, spelling, and punctuation that were not noted in review of the chart prior to signing ED Disposition - Plan for ED Patient: Disposition: Home or Assisted Living Diagnosis: Urinary tract infection, Constipation Instructions: ED UTI Cystitis Female, ED Constipation Prescriptions: Smz/Tmp Ds [Bactrim Ds] 1 tab PO BID #6 tab Phenazopyridine HCl [Pyridium] 200 mg PO TID #6 tab Referrals: Anna De La Rosa MD [Primary Care Provider] - 3-5 Days
[2018-10-17] MEDS: Ondansetron 4 MG/2 ML Vial IV (03:54)
[2018-10-17] MEDS: 0.9% Normal Saline 1,000 ML 250 ML IV (03:54)
[2018-10-17] MEDS: Ketorolac 30 MG/ML Syringe IV (03:54)
[2018-10-17 03:56] LABS: Absolute Lymphocyte Count 4.81 X10^3/ul (0.83-4.51); Absolute Neutrophil Count 5.5 X10^3/uL (2.0-7.7); Basophil# 0.04 X10^3/uL; Basophil% 0.3 % (0-1); Eosinophil# 0.27 X10^3/uL; Eosinophils% 2.3 % (0-5); Hematocrit 41.5 % (37-47); Lymphocyte # 4.81 X10^3/ul (4.0); Lymphocyte % 41.6 % (19-41); Mean Corp Hgb Conc 33.7 g/gl (32-36); Mean Corpuscular Hgb 28.1 pg (27.0-32.0); Mean Corpuscular Volume 83.3 fL (81-99); Monocyte% 6.9 % (0-10); Neutrophil # 5.49 X10^3/uL (2.7-7.7); Neutrophil % 47.7 % (47-70); POSITIVE COUNT NO; POSITIVE DIFFERENTIAL NO; POSITIVE MORPHOLOGY NO; Platelet Count 316 K/mm3 (150-450); RBC Distribution Width CV 12.4 % (11.6-14.6); RBC Distribution Width SD 37.1 fl (35.1-43.9); Red Blood Count 4.98 M/mm3 (4.2-5.4); White Blood Count 11.6 K/mm3 (4.4-11.0)
[2018-10-17 04:04] LABS: Bacteria 0 SEEN /hpf (None Seen); Mucous, Urine 0 SEEN /hpf (<or=2+); Red Blood Cells-Urine 0 SEEN /hpf (0-5)
[2018-10-17 04:04] LABS: Anion Gap 9 (5-15); BUN 8 mg/dL (7-18); BUN/Creat Ratio 11.6 RATIO (10-20); Calcium,Total 9.4 mg/dL (8.5-10.1); Chloride 103 mmol/L (98-107); Creatinine, Serum 0.69 mg/dL (0.55-1.02); EST Glomerular Filtration Rate 114 mL/min (>60); Est Glom Filt Rate - Afr Amer 138 mL/min (>60); Estimated Creatinine Clearance 125.42 ml/min; Glucose 96 mg/dL (74-106); Potassium 3.5 mmol/L (3.5-5.1); Sodium Level 139 mmol/L (136-145)
[2018-10-17 04:09] LABS: Color, Urine Yellow (Yellow); Glucose, Dipstick Normal (Normal); Ketone-Dipstick Negative (Negative); Leukocyte Esterase-Dipstick 500 /ul (Negative); Nitrite-Dipstick Negative (Negative); Occult Blood-Urine 10 /ul (Negative); Protein-Dipstick Negative (Negative); Urine Bilirubin Dipstick Negative (Negative); Urine Clarity Clear (Clear); Urine Urobilinogen Normal (Normal); Urine pH 6.5 (5.0 - 8.0)
[2018-10-17 04:18] LABS: Squamous Epithelial Cells - UA 5-10 SEEN /hpf (5-10); White Blood Cells 10-25 SEEN /hpf (0-5)
[2018-10-17 04:23] LABS: Internal QC Validated? YES +Cl - CLEAR BKGD; Pregnancy, Urine Negative Negative
[2018-10-17] MEDS: Smz/Tmp Ds Tablet 1 TABLET PO (05:13)
[2018-10-17 05:19] VITALS: BP 139/85; PULSE 87; RESP 18; O2SAT 98
== END 2018-10-17 05:20 | disposition home or self-care (01) ==
PROVIDERS: Emergency Provider Emergency Medicine; Family Provider Internal Medicine; PCP Internal Medicine
DX: N39.0 Urinary tract infection, site not specified (principal); K59.00 Constipation, unspecified; E66.9 Obesity, unspecified
CPT/HCPCS: 74176; 80048; 81001; 81025; 85025; 96361; 96374; 96375; 99282; J7030; A4216; J2405

== ENCOUNTER → 2018-10-30 07:17 | Outpatient (CLI) | payer MEDICAID, SELFPAY ==
[2018-10-29 14:16] VITALS: BMI 34.2
[2018-10-30 08:50] LABS: T4 Free Direct 1.12 ng/dL (0.76-1.46); Thyroid Stim Hormone (TSH) 4.01 uIU/mL (0.358-3.74)
== END ==
PROVIDERS: Family Provider Internal Medicine; PCP Internal Medicine; Referring Provider Nurse Practitioner Family; Visit Provider Nurse Practitioner Family
DX: E89.0 Postprocedural hypothyroidism (principal)
CPT/HCPCS: 36415; 84439; 84443

== ENCOUNTER 2018-11-08 14:51 | Emergency (ER) | payer MEDICAID, SELFPAY ==
[2018-10-29 14:16] VITALS: BMI 34.2
[2018-11-08 14:53] VITALS: BP 140/85; PULSE 94; RESP 18; TEMP 32.2; O2SAT 98; BMI 29.0
--- NOTE | 2018-11-08 15:27 | ED.DCSUM_ITS ---
- ER Visit Summary Date of Service: 11/08/18 Chief Complaint: Vaginal bleeding and dizziness History of Present Illness: The patient is a 23 F who presents with vaginal bleeding and dizziness that began this morning. Patient states she finished her menstrual period 3 days ago. Patient states this was a normal period for her. Patient states today she had some spotting and passing some small clots. Patient states this has resolved. Patient states she is having some intermittent sharp pelvic pain. Patient also admits to some mild low back pain. Patient states she is having some dizziness. Patient describes it as the room is tilting and she feels like she might pass out. Patient denies any chest pain or shortness of breath. Physical Examination: Vital signs are stable. Patient is afebrile. Patient is in no acute distress. Oral mucosa is pink and moist. Neck is supple. Trachea is midline. There is no JVD noted. Heart was regular rate and rhythm. Lungs are clear and equal bilaterally. Abdomen is soft. Bowel sounds are normal. There is some mild lower abdominal tenderness. There is no rebound or guarding noted. Cranial nerves II through XII are intact. There are no focal motor or sensory deficits noted. Test Results: CBC, basic metabolic profile, serum hCG, urinalysis were obtained and were all normal. Orthostatic vital signs were negative. Emergency Department Course and Treatment: Patient was given IV fluids here. Patient felt better on reevaluation. Patient was instructed to follow-up with her primary care physician in 5 to 7 days. Patient understood and was agreeable with the plan. All questions were answered. Disposition: Discharge home Impression: Irregular vaginal bleeding This note was generated with [employer] dictation software. It may contain incorrect words, spelling, and punctuation that were not noted in review of the chart prior to signing ED Disposition - Plan for ED Patient: Disposition: Home or Assisted Living Diagnosis: Vaginal bleeding between periods Instructions: ED Bleed Irregular Vaginal Referrals: Anna De La Rosa MD [Primary Care Provider] - 5-7 Days
[2018-11-08] MEDS: 0.9% Normal Saline 1,000 ML 1000 ML IV (15:42)
[2018-11-08 15:53] VITALS: BP 139/107; BP 139/82; BP 147/94; PULSE 86; PULSE 93; PULSE 94
[2018-11-08 15:56] LABS: Absolute Lymphocyte Count 2.49 X10^3/ul (0.83-4.51); Absolute Neutrophil Count 4.2 X10^3/uL (2.0-7.7); Basophil# 0.03 X10^3/uL; Basophil% 0.4 % (0-1); Eosinophil# 0.16 X10^3/uL; Eosinophils% 2.2 % (0-5); Hematocrit 40.5 % (37-47); Hemoglobin 13.6 g/dl (12.0-15.0); Lymphocyte # 2.49 X10^3/ul (4.0); Lymphocyte % 33.5 % (19-41); Mean Corp Hgb Conc 33.6 g/gl (32-36); Mean Corpuscular Hgb 27.4 pg (27.0-32.0); Mean Corpuscular Volume 81.7 fL (81-99); Monocyte% 6.7 % (0-10); Neutrophil # 4.19 X10^3/uL (2.7-7.7); Neutrophil % 56.3 % (47-70); Platelet Count 259 K/mm3 (150-450); RBC Distribution Width CV 12.5 % (11.6-14.6); RBC Distribution Width SD 36.7 fl (35.1-43.9); Red Blood Count 4.96 M/mm3 (4.2-5.4); White Blood Count 7.4 K/mm3 (4.4-11.0)
[2018-11-08 15:57] LABS: Anion Gap 8 (5-15); BUN 11 mg/dL (7-18); BUN/Creat Ratio 15.5 RATIO (10-20); Calcium,Total 9.4 mg/dL (8.5-10.1); Chloride 105 mmol/L (98-107); Creatinine, Serum 0.71 mg/dL (0.55-1.02); EST Glomerular Filtration Rate 110 mL/min (>60); Est Glom Filt Rate - Afr Amer 133 mL/min (>60); Estimated Creatinine Clearance 121.89 ml/min; Glucose 87 mg/dL (74-106); Internal QC Validated? YES +Cl - CLEAR BKGD; POSITIVE COUNT NO; POSITIVE DIFFERENTIAL NO; POSITIVE MORPHOLOGY NO; Potassium 3.9 mmol/L (3.5-5.1); Pregnancy, Serum, hCG Quali. NEGATIVE Negative; Sodium Level 138 mmol/L (136-145)
[2018-11-08 16:09] LABS: Bacteria 0 SEEN /hpf (None Seen); Color, Urine Yellow (Yellow); Glucose, Dipstick Normal (Normal); Ketone-Dipstick Negative (Negative); Leukocyte Esterase-Dipstick 25 /ul (Negative); Mucous, Urine 0 SEEN /hpf (<or=2+); Nitrite-Dipstick Negative (Negative); Occult Blood-Urine 10 /ul (Negative); Protein-Dipstick Negative (Negative); Specific Gravity, Urine 1.015 (1.002-1.030); Urine Bilirubin Dipstick Negative (Negative); Urine Clarity Sl. Cloudy (Clear); Urine Urobilinogen Normal (Normal)
[2018-11-08 16:15] LABS: Red Blood Cells-Urine 0-5 SEEN /hpf (0-5); Squamous Epithelial Cells - UA 0-5 SEEN /hpf (5-10); Transitional Epithelial - Ur 0-5 SEEN /hpf (0-5); White Blood Cells 0-5 SEEN /hpf (0-5)
[2018-11-08 18:05] VITALS: PULSE 89; RESP 18; O2SAT 98
== END 2018-11-08 18:06 | disposition home or self-care (01) ==
PROVIDERS: Emergency Provider Emergency Medicine; Family Provider Internal Medicine; PCP Internal Medicine
DX: N92.6 Irregular menstruation, unspecified (principal); R51 Headache
CPT/HCPCS: 80048; 81001; 84703; 85025; 96360; 99284; J7030; A4216

== ENCOUNTER 2018-11-25 03:09 | Emergency (ER) | payer MEDICAID, SELFPAY ==
[2018-11-24 14:15] VITALS: BMI 29.0
[2018-11-25 03:10] VITALS: BP 144/84; PULSE 102; RESP 20; TEMP 37.1; O2SAT 99; BMI 34.9
--- NOTE | 2018-11-25 03:39 | EKG12_ITS ---
Test Reason : Blood Pressure : / mmHG Vent. Rate : 090 BPM Atrial Rate : 090 BPM P-R Int : 148 ms QRS Dur : 076 ms QT Int : 376 ms P-R-T Axes : 064 032 030 degrees QTc Int : 459 ms Normal sinus rhythm Normal ECG Confirmed by POLY SMITH, LING ([id number]), multimedia editor JACIEL KRISHNAN ([id number]) on 11/26/2018 10:43:07 AM Referred By: SHAWN Confirmed By:BENIGNO PANG MD
[2018-11-25 03:48] VITALS: BP 116/87; BP 145/103; BP 146/107; PULSE 101; PULSE 103; PULSE 93
[2018-11-25] MEDS: 0.9% Normal Saline 1,000 ML 999 ML IV (03:48)
[2018-11-25 03:55] LABS: Absolute Lymphocyte Count 3.68 X10^3/ul (0.83-4.51); Absolute Neutrophil Count 4.7 X10^3/uL (2.0-7.7); Basophil# 0.02 X10^3/uL; Basophil% 0.2 % (0-1); Eosinophil# 0.26 X10^3/uL; Eosinophils% 2.8 % (0-5); Hematocrit 37.7 % (37-47); Hemoglobin 12.7 g/dl (12.0-15.0); Lymphocyte # 3.68 X10^3/ul (4.0); Lymphocyte % 39.1 % (19-41); Mean Corp Hgb Conc 33.7 g/gl (32-36); Mean Corpuscular Hgb 27.7 pg (27.0-32.0); Mean Corpuscular Volume 82.3 fL (81-99); Mean Platelet Vol. 9.1 fl (6.2-12.0); Monocyte# 0.73 X10^3/uL; Monocyte% 7.8 % (0-10); Neutrophil # 4.68 X10^3/uL (2.7-7.7); Neutrophil % 49.7 % (47-70); Platelet Count 257 K/mm3 (150-450); RBC Distribution Width CV 12.6 % (11.6-14.6); RBC Distribution Width SD 37.3 fl (35.1-43.9); Red Blood Count 4.58 M/mm3 (4.2-5.4); White Blood Count 9.4 K/mm3 (4.4-11.0)
[2018-11-25 03:56] LABS: POSITIVE COUNT NO; POSITIVE DIFFERENTIAL NO; POSITIVE MORPHOLOGY NO
[2018-11-25 04:06] LABS: D-Dimer Quantitative (DVT/PE) 0.27 FEU/ug/m (0.27-0.49)
[2018-11-25 04:07] LABS: Anion Gap 9 (5-15); BUN 15 mg/dL (7-18); BUN/Creat Ratio 20.7 RATIO (10-20); Chloride 105 mmol/L (98-107); Creatinine, Serum 0.72 mg/dL (0.55-1.02); EST Glomerular Filtration Rate 108 mL/min (>60); Est Glom Filt Rate - Afr Amer 130 mL/min (>60); Estimated Creatinine Clearance 120.19 ml/min; Glucose 101 mg/dL (74-106); Potassium 3.6 mmol/L (3.5-5.1); Sodium Level 141 mmol/L (136-145); Thyroid Stim Hormone (TSH) 4.26 uIU/mL (0.358-3.74)
--- NOTE | 2018-11-25 04:20 | ED.VISSUMM ---
- ER Visit Summary Date of Service: 11/25/18 Chief Complaint: Dizziness History of Present Illness: The patient is a 23 F who presents with dizziness. This is been occurring intermittently for 4 to 6 weeks. Her current episode is been about 6 hours. She felt as if she may pass out. She denies any recent illness. No fevers chest pain shortness of breath nausea vomiting diarrhea. She was recently started on medication for blood pressure but has not actually started this medication yet. She is also treated for hypothyroidism. Physical Examination: Blood pressure 144/84 heart rate 102 respiratory rate 20 Moist mucous membranes Heart regular tachycardia Lungs are clear Abdomen soft Alert Test Results: EKG shows sinus rhythm at a rate of 90. CBC BMP normal. Troponin negative. D-dimer negative. TSH 4.26. Emergency Department Course and Treatment: Patient was treated with IV fluids. The above work-up is unremarkable. Patient was advised she may need further outpatient work-up such as Holter monitoring should symptoms continue. She understands to return for new or worsening symptoms. Patient discharged. Treatment Plan: [] Disposition: Discharge Impression: Near syncope This note was generated with [email or web address] dictation software. It may contain incorrect words, spelling, and punctuation that were not noted in review of the chart prior to signing ED Disposition - Plan for ED Patient: Referrals: Anna De La Rosa MD [Primary Care Provider] -
--- NOTE | 2018-11-25 04:26 | ED.DEP ---
ED Disposition - Plan for ED Patient: Instructions: NEAR SYNCOPE, Unknown Referrals: Anna De La Rosa MD [Primary Care Provider] -
[2018-11-25 04:28] VITALS: BP 119/88; PULSE 100; RESP 20; O2SAT 96
[2018-11-25 04:51] VITALS: BP 119/80; PULSE 90; RESP 22; O2SAT 96
--- NOTE | 2018-11-25 04:52 | ED.RN ---
ED medical secretary teacher wheeled pt to [facility] to get her things. If pt feels unable to drive- will help pt arrange ride.
== END 2018-11-25 04:53 | disposition home or self-care (01) ==
LOC: ED 03:36
PROVIDERS: Emergency Provider Emergency Medicine; Family Provider Internal Medicine; PCP Internal Medicine
DX: R55 Syncope and collapse (principal); E03.9 Hypothyroidism, unspecified; K21.9 Gastro-esophageal reflux disease without esophagitis
CPT/HCPCS: 80048; 84443; 84484; 85025; 85379; 93005; 96360; 99283; J7030; A4216

== ENCOUNTER 2018-11-26 03:22 | Emergency (ER) | payer MEDICAID, SELFPAY ==
[2018-11-25 03:10] VITALS: BMI 34.9
[2018-11-26 03:23] VITALS: BP 143/81; PULSE 90; RESP 26; TEMP 36.9; O2SAT 97; BMI 35.6
--- NOTE | 2018-11-26 03:28 | EKG12_ITS ---
Test Reason : DIZZINESS Blood Pressure : / mmHG Vent. Rate : 088 BPM Atrial Rate : 088 BPM P-R Int : 154 ms QRS Dur : 082 ms QT Int : 372 ms P-R-T Axes : 053 022 024 degrees QTc Int : 450 ms Normal sinus rhythm Normal ECG Confirmed by DAVID SMITH, JORDANA ([id number]), purchase request editor JACIEL KRISHNAN ([id number]) on 11/29/2018 1:41:00 PM Referred By: SHAWN Confirmed By:JORDANA HERNANDEZ MD
--- NOTE | 2018-11-26 03:28 | CT_ITS ---
STUDY: CT BRAIN WITHOUT CONTRAST REASON FOR EXAM: Female, 23 years old. Dizziness RADIATION DOSAGE (If Supplied By Facility): CTDIvol = ( 44.99 ) mGy, DLP = ( 762.36 ) mGycm TECHNIQUE: Transaxial CT imaging of the brain was performed without administration of intravenous contrast material. Individualized dose optimization techniques were used for this CT. COMPARISON: CTA head 02/07/2018 FINDINGS: Normal soft tissue structures. Normal calvarium. Normal size ventricles and extra-axial spaces for the patient's age. Normal white matter tracts of the cerebral hemispheres. Normal basal ganglia and thalami. Normal brainstem. Normal cerebellum. There is no intracranial hemorrhage. There are no findings of an acute ischemic infarction. Normal visualized paranasal sinuses. CT/Brain/Head without Contrast IMPRESSION: Negative unenhanced CT scan of the brain. Electronically Signed: Rick Jeffers, at 4:19 EDT Tel , Service support ,
[2018-11-26 03:41] LABS: Bedside Glucose 108 mg/dL (70-110)
--- NOTE | 2018-11-26 03:44 | RAD_ITS ---
STUDY: X-RAY CHEST REASON FOR EXAM: Female, 23 years old. Dizziness TECHNIQUE: PA and lateral COMPARISON: None. FINDINGS: The lungs are clear and expanded. There is no demonstrated pleural abnormality. Normal size heart. Normal mediastinum and isela. Normal visualized pulmonary arteries. Normal visualized aortic arch and descending thoracic aorta. Normal visualized thoracic spine. Normal visualized ribs, clavicles, and shoulders. There is no demonstrated abnormality of the visualized soft tissue structures of the upper abdomen. RAD/Chest PA and Lateral IMPRESSION: Negative x-ray examination of the chest. Electronically Signed: Rick Jeffers, at 4:21 EDT Tel , Service support ,
--- NOTE | 2018-11-26 03:45 | ED.VISSUMM ---
- ER Visit Summary Date of Service: 11/26/18 Chief Complaint: Dizziness/near syncope History of Present Illness: The patient is a 23 F who presents with dizziness. This been occurring for about 4 to 6 weeks. She describes it is near syncope. It is worse on standing. She reports that she almost passed out several times tonight. While laying in bed she actually feels okay. She complains of feeling intermittently short of breath. She also complains of nausea. She has had intermittent headaches although she has no pain currently. She complains of blurry vision. She was seen last night in the emergency department about 24 hours ago by myself. She had blood work orthostatic vital signs and EKG. She was treated with IV fluids. Her work-up was unremarkable. She was advised to follow-up as an outpatient. Physical Examination: Afebrile blood pressure 143/81 respiratory rate 26 pulse ox 97% on room air Moist mucous membranes Heart regular rate and rhythm Lungs are clear Abdomen soft Alert No focal or lateralizing neurological deficits normal strength normal sensation mild tremor Test Results: EKG shows normal sinus rhythm at a rate of 88. CBC BMP normal. negative. BGT was normal. Chest x-ray is negative. CT the head is negative. Emergency Department Course and Treatment: Above work-up was pursued. Work-up unremarkable. Patient observed ambulating here. I do not see an indication for hospitalization/admission. We will refer to cardiology for outpatient follow-up. Treatment Plan: [] Disposition: Discharge Impression: Near syncope This note was generated with Bl[employer] dictation software. It may contain incorrect words, spelling, and punctuation that were not noted in review of the chart prior to signing ED Disposition - Plan for ED Patient: Referrals: Anna De La Rosa MD [Primary Care Provider] -
[2018-11-26 03:59] LABS: Internal QC Validated? YES +Cl - CLEAR BKGD; Pregnancy, Urine Negative Negative
[2018-11-26 04:02] LABS: Absolute Lymphocyte Count 3.18 X10^3/ul (0.83-4.51); Basophil# 0.03 X10^3/uL; Basophil% 0.3 % (0-1); Eosinophil# 0.22 X10^3/uL; Eosinophils% 2.4 % (0-5); Hematocrit 38.8 % (37-47); Lymphocyte # 3.18 X10^3/ul (4.0); Lymphocyte % 34.8 % (19-41); Mean Corp Hgb Conc 33.5 g/gl (32-36); Mean Corpuscular Hgb 27.5 pg (27.0-32.0); Mean Corpuscular Volume 82.2 fL (81-99); Mean Platelet Vol. 8.9 fl (6.2-12.0); Monocyte# 0.65 X10^3/uL; Monocyte% 7.1 % (0-10); Neutrophil # 4.99 X10^3/uL (2.7-7.7); Neutrophil % 54.6 % (47-70); Platelet Count 238 K/mm3 (150-450); RBC Distribution Width CV 12.5 % (11.6-14.6); RBC Distribution Width SD 36.8 fl (35.1-43.9); Red Blood Count 4.72 M/mm3 (4.2-5.4); White Blood Count 9.1 K/mm3 (4.4-11.0)
[2018-11-26 04:07] LABS: POSITIVE COUNT NO; POSITIVE DIFFERENTIAL NO; POSITIVE MORPHOLOGY NO
[2018-11-26 04:15] LABS: Anion Gap 10 (5-15); BUN 9 mg/dL (7-18); BUN/Creat Ratio 13.5 RATIO (10-20); Calcium,Total 9.4 mg/dL (8.5-10.1); Chloride 107 mmol/L (98-107); Creatinine, Serum 0.67 mg/dL (0.55-1.02); EST Glomerular Filtration Rate 118 mL/min (>60); Est Glom Filt Rate - Afr Amer 143 mL/min (>60); Estimated Creatinine Clearance 129.16 ml/min; Glucose 106 mg/dL (74-106); Potassium 3.5 mmol/L (3.5-5.1); Sodium Level 143 mmol/L (136-145)
--- NOTE | 2018-11-26 04:38 | ED.DEP ---
ED Disposition - Plan for ED Patient: Instructions: NEAR SYNCOPE, Unknown Referrals: Anna De La Rosa MD [Primary Care Provider] -
--- NOTE | 2018-11-26 04:41 | ED.DEP ---
ED Disposition - Plan for ED Patient: Instructions: NEAR SYNCOPE, Unknown Referrals: Anna De La Rosa MD [Primary Care Provider] - Bobbi Poe MD [STAFF PHYSICIAN] -
[2018-11-26 04:48] VITALS: BP 117/78; PULSE 98; RESP 25; O2SAT 97
== END 2018-11-26 04:56 | disposition home or self-care (01) ==
PROVIDERS: Emergency Provider Emergency Medicine; Family Provider Internal Medicine; PCP Internal Medicine
DX: R55 Syncope and collapse (principal); I10 Essential (primary) hypertension; R25.1 Tremor, unspecified; H53.8 Other visual disturbances; R06.02 Shortness of breath; R11.0 Nausea
CPT/HCPCS: 70450; 71046; 80048; 81025; 82962; 85025; 93005; 99283

== ENCOUNTER → 2019-01-14 09:03 | Outpatient (CLI) | payer MEDICAID, SELFPAY ==
[2019-01-14 17:21] LABS: T4 Free Direct 0.96 ng/dL (0.76-1.46)
== END ==
PROVIDERS: Nurse Practitioner Family; Family Provider Internal Medicine; PCP Internal Medicine; Visit Provider Internal Medicine
DX: E89.0 Postprocedural hypothyroidism (principal)
CPT/HCPCS: 36415; 84439; 84443

== ENCOUNTER → 2019-02-18 15:01 | Outpatient (CLI) | payer MEDICAID, SELFPAY ==
[2019-02-18 14:32] VITALS: BMI 35.6
== END ==
PROVIDERS: Family Provider Internal Medicine; PCP Internal Medicine; Referring Provider Internal Medicine; Visit Provider Internal Medicine
DX: E89.0 Postprocedural hypothyroidism (principal)
CPT/HCPCS: 36415; 84443

== ENCOUNTER → 2019-04-14 13:13 | Outpatient (CLI) | payer MEDICAID, SELFPAY ==
[2019-04-04 12:41] VITALS: BMI 35.6
[2019-04-14 15:42] LABS: Thyroid Stim Hormone (TSH) 0.99 uIU/mL (0.358-3.74)
== END ==
PROVIDERS: Family Provider Internal Medicine; PCP Internal Medicine; Referring Provider Internal Medicine; Visit Provider Internal Medicine
DX: E89.0 Postprocedural hypothyroidism (principal)
CPT/HCPCS: 36415; 84443

== ENCOUNTER 2019-05-11 22:27 | Emergency (ER) | payer MEDICAID, SELFPAY ==
[2019-04-04 12:41] VITALS: BMI 35.6
[2019-05-11 22:28] VITALS: BP 169/94; PULSE 104; RESP 16; TEMP 36.3; O2SAT 99; BMI 36.0
[2019-05-11 22:40] LABS: Bedside Glucose 128 mg/dL (70-110)
--- NOTE | 2019-05-11 22:41 | ED.VIS.GEN ---
History of Present Illness Chief Complaint: Hypoglycemia Informant: Patient Onset: Today Narrative: Patient presents to the emergency department out of concerns for hypoglycemia, hypertension, and tachycardia. Patient states that around 1:00 she had 8. She was at work at 2. At 5:00 she checked her blood sugar which was 70 because she was feeling dizzy and lightheaded and shakey. 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 Around 2039 she ate [employer]. She left work because she continued to feel poorly. She also noted that she has a temperature of 99.4 and took some acetaminophen. She denies any URI symptoms, no change in her chronic diarrhea, no urinary symptoms. She states she has had a long history of dizziness and has had multiple evaluations for this. No new medications. No rashes. Patient has no history of diabetes. She takes Synthroid as she is status post thyroidectomy. Past Medical History - Allergies and Home Meds Allergies/Adverse Reactions: Allergies No Known Allergies Allergy (Verified 04/04/19 12:36) Primary Care Physician: Anna De La Rosa MD [Primary Care Provider] - 3-5 Days if not improving Smoking Status: Never smoker Review of Systems General: Reports: Malaise, - - feeling shakey. Denies: Chills, Fever, Sweats Eyes: Denies: Visual changes - bilaterally, Diplopia ENT: Denies: Rhinorrhea, Sore throat Cardiovascular: Reports: Heart racing - higher than normal HR. Denies: Chest pain, Palpitations Respiratory: Denies: Dyspnea, Cough, Dyspnea on exertion Gastrointestinal: Reports: Diarrhea - chronic due to IBS - No change from baseline. Denies: Abdominal pain, Nausea, Vomiting, Melena, Hematochezia Genitourinary: Denies: Dysuria, Hematuria, Frequency Musculoskeletal: Reports: Back pain. Denies: Extremity Pain Skin: Denies: Rash, Wounds Neurological: Denies: Headache, Weakness, Numbness Psych: Denies: Depression, Suicidal thoughts, Suicidal ideations Endocrine: Denies: Polyuria, Polydipsia Hematologic: Denies: Easy bruising, Easy bleeding Allergy: Denies: Uticaria, Swelling of the tongue Physical Exam Vital Signs/Narrative: Vital Signs Temp Pulse Resp BP Pulse Ox 05/11/19 22:28 97.4 F L 104 H 16 169/94 H 99 General: Well nourished, Well developed, No Acute Distress Head: Normocephalic, Atraumatic Eyes: Perrl, EOMI ENT: Moist mucous membranes, No rhinorrhea Neck: Supple, Nontender Cardiovascular: Regular rate, Regular rhythm, No murmurs Respiratory: No distress, CTA bilaterally, Chest nontender Abdomen: Soft, Nontender, Nondistended, Normal bowel sounds Back: Nontender, Normal Inspection Extremities: Nontender, No edema Skin: Normal color, No rash Neurological: Alert, Oriented x3, Cranial nerves II-XII grossly intact, Normal Strength, Normal Sensation Psychological: Normal affect, Normal Mood Diagnostic/Tx/Re-eval - EKG Initial EKG Interpretation: Sinus Tachycardia - Rate of 101. No ectopy. No concerning features of ACS. - Medical Decision Making Upon arrival to the emergency department patient's blood sugar is 128. Urinalysis demonstrates no overt infection. White count is normal hemoglobin normal. BMP is normal. Slight elevation in her AST and ALT that is nonspecific. EKG is a sinus tach at 101. At this point patient will be discharged home. Advised her difficult to say if this low-grade fever she had was the start of an illness or not. Would recommend home observation return if worsening or concerns follow-up with primary care ED Disposition - Plan for ED Patient: Disposition: Home or Assisted Living Diagnosis: Tachycardia, Weakness Instructions: HYPOGLYCEMIA, Non Diabetic Referrals: Anna De La Rosa MD [Primary Care Provider] - 3-5 Days if not improving
--- NOTE | 2019-05-11 22:46 | EKG12_ITS ---
Test Reason : CP Blood Pressure : / mmHG Vent. Rate : 101 BPM Atrial Rate : 101 BPM P-R Int : 150 ms QRS Dur : 076 ms QT Int : 354 ms P-R-T Axes : 054 021 000 degrees QTc Int : 459 ms Sinus tachycardia Otherwise normal ECG Confirmed by POLY SMITH, LING ([id number]), editor magazine AFHSAN CARRINGTON ([id number]) on 05/18/2019 11:32:59 AM Referred By: SUSI Confirmed By:BENIGNO PANG MD
[2019-05-11 22:57] LABS: Bacteria 0 SEEN /hpf (None Seen); Mucous, Urine 0 SEEN /hpf (<or=2+)
[2019-05-11 23:03] LABS: Color, Urine Yellow (Yellow); Glucose, Dipstick Normal (Normal); Internal QC Validated? YES +Cl - CLEAR BKGD; Ketone-Dipstick Negative (Negative); Leukocyte Esterase-Dipstick 500 /ul (Negative); Nitrite-Dipstick Negative (Negative); Occult Blood-Urine 150 /ul (Negative); Pregnancy, Urine Negative Negative; Protein-Dipstick 15 mg/dl (Negative); Urine Bilirubin Dipstick Negative (Negative); Urine Clarity Clear (Clear); Urine Urobilinogen Normal (Normal); Urine pH 6.5 (5.0 - 8.0)
[2019-05-11 23:05] LABS: Squamous Epithelial Cells - UA 0-5 SEEN /hpf (5-10); White Blood Cells 5-10 SEEN /hpf (0-5)
[2019-05-11 23:07] LABS: Red Blood Cells-Urine 0-5 SEEN /hpf (0-5)
[2019-05-11 23:09] LABS: Absolute Neutrophil Count 5.3 X10^3/uL (2.0-7.7); Basophil# 0.04 X10^3/uL; Basophil% 0.4 % (0-1); Hematocrit 37.9 % (37-47); Hemoglobin 12.7 g/dL (12.0-15.0); Lymphocyte % 34.8 % (19-41); Mean Corp Hgb Conc 33.5 g/dL (32-36); Mean Corpuscular Hgb 27.7 pg (27.0-32.0); Mean Corpuscular Volume 82.8 fL (81-99); Mean Platelet Vol. 9.3 fl (6.2-12.0); Monocyte# 0.57 X10^3/uL; Monocyte% 6.2 % (0-10); NRBC Flagged by Analyzer 0 % (0-5); Neutrophil # 5.31 X10^3/uL (2.7-7.7); Neutrophil % 57.7 % (47-70); Platelet Count 255 K/mm3 (150-450); RBC Distribution Width CV 12.3 % (11.6-14.6); RBC Distribution Width SD 37.2 fl (35.1-43.9); Red Blood Count 4.58 M/mm3 (4.2-5.4); White Blood Count 9.2 K/mm3 (4.4-11.0)
[2019-05-11 23:41] LABS: ALB/GLOB Ratio 1.1 RATIO (0.9-2.4); AST(SGOT) 40 U/L (15-37); Alanine Aminotransfer ALT/SGPT 76 U/L (13-56); Albumin, Serum 3.8 g/dL (3.2-5.0); Alkaline Phosphatase 79 U/L (45-117); Anion Gap 8 (5-15); BUN 12 mg/dL (7-18); BUN/Creat Ratio 14.9 RATIO (10-20); Calcium,Total 9.3 mg/dL (8.5-10.1); Chloride 107 mmol/L (98-107); Creatinine, Serum 0.81 mg/dL (0.55-1.02); EST Glomerular Filtration Rate 95 mL/min (>60); Est Glom Filt Rate - Afr Amer 115 mL/min (>60); Estimated Creatinine Clearance 106.84 ml/min; Globulin 3.5 g/dL (2.2-4.2); Glucose 129 mg/dL (74-106); Potassium 3.8 mmol/L (3.5-5.1); Protein, Total 7.3 g/dL (6.4-8.2); Sodium Level 141 mmol/L (136-145); Thyroid Stim Hormone (TSH) 1.02 uIU/mL (0.358-3.74)
[2019-05-11 23:59] VITALS: BP 126/78; PULSE 90; RESP 18; O2SAT 97
== END 2019-05-12 | disposition home or self-care (01) ==
PROVIDERS: Emergency Provider Emergency Medicine; Family Provider Internal Medicine; PCP Internal Medicine
DX: R00.0 Tachycardia, unspecified (principal); R53.1 Weakness
CPT/HCPCS: 80053; 81001; 81025; 82962; 84443; 85025; 93005; 99283; A4216

== ENCOUNTER 2019-06-26 04:16 | Emergency (ER) | payer MEDICAID, SELFPAY ==
[2019-06-26 04:17] VITALS: BP 145/94; PULSE 109; RESP 18; TEMP 36.8; O2SAT 98; BMI 38.0
--- NOTE | 2019-06-26 04:57 | ED.DCSUM_ITS ---
- ER Visit Summary Date of Service: 06/26/19 Chief Complaint: Abdominal pain, nausea, vomiting, diarrhea History of Present Illness: The patient is a 23 F who presents with abdominal pain, nausea, vomiting, and diarrhea that began yesterday. Patient states her pain is over the upper abdomen. Patient describes it as sharp, aching, and dull at times. Patient states her pain has been constant since yesterday. Patient admits to some nausea and vomiting. Patient denies any hematemesis or coffee- ground emesis. Patient also started having some diarrhea. Patient denies any melena or hematochezia. Patient denies any dysuria or hematuria. Physical Examination: Vital signs are stable except for mild tachycardia of 109. Patient is afebrile. Patient is in no acute distress. Oral mucosa is pink and moist. Neck is supple. Trachea is midline. There is no JVD. Heart was regul ar rate and rhythm. Lungs are clear and equal bilaterally. Abdomen is soft. Bowel sounds are normal. There is diffuse tenderness. There is no rebound or guarding noted. Cranial nerves II through XII are intact. There are no focal motor or sensory deficits noted. Test Results: CBC showed a mild leukocytosis of 11.7. Comprehensive metabolic profile was normal. Lipase was normal. Urinalysis does not show any evidence of urinary tract infection. Serum hCG was negative. Emergency Department Course and Treatment: Patient was given IV fluids and Zofran here. Patient felt better on reevaluation. Patient was instructed to start with a liquid diet and advance to a bland diet and to a regular diet as she feels better. Patient was given a prescription for Zofran. Patient was instructed to follow-up with her primary care physician in 5 to 7 days. Patient understood and was agreeable with the plan. All questions were answered. Disposition: Discharge home Impression: 1. Nausea vomiting and diarrhea This note was generated with [employer] dictation software. It may contain incorrect words, spelling, and punctuation that were not noted in review of the chart prior to signing ED Disposition - Plan for ED Patient: Disposition: Home or Assisted Living Diagnosis: Nausea vomiting and diarrhea Instructions: ABDOMINAL PAIN, Unknown Cause, (Female), VOMITING AND DIARRHEA, Nonspecific (Adult) Prescriptions: Ondansetron [Zofran Odt] 4 mg PO Q8H PRN PRN #10 tab PRN Reason: Nausea Prescription Printed Referrals: Anna De L aRosa MD [Primary Care Provider] - 5-7 Days
[2019-06-26] MEDS: 0.9% Normal Saline 1,000 ML 1000 ML IV (04:58)
[2019-06-26] MEDS: Ondansetron 4 MG/2 ML Vial IV (04:58)
[2019-06-26 05:03] LABS: Absolute Lymphocyte Count 3.05 X10^3/uL (0.83-4.51); Absolute Neutrophil Count 7.4 X10^3/uL (2.0-7.7); Basophil# 0.04 X10^3/uL; Basophil% 0.3 % (0-1); Hematocrit 40.2 % (37-47); Lymphocyte # 3.05 X10^3/ul (4.0); Lymphocyte % 26.1 % (19-41); Mean Corp Hgb Conc 32.3 g/dL (32-36); Mean Corpuscular Hgb 27.3 pg (27.0-32.0); Mean Corpuscular Volume 84.5 fL (81-99); Mean Platelet Vol. 9.4 fl (6.2-12.0); Monocyte% 8.6 % (0-10); NRBC Flagged by Analyzer 0 % (0-5); Neutrophil # 7.42 X10^3/uL (2.7-7.7); Neutrophil % 63.5 % (47-70); Platelet Count 255 K/mm3 (150-450); RBC Distribution Width CV 12.5 % (11.6-14.6); Red Blood Count 4.76 M/mm3 (4.2-5.4); White Blood Count 11.7 K/mm3 (4.4-11.0)
[2019-06-26 05:09] LABS: Mucous, Urine 0 SEEN /hpf (<or=2+); Red Blood Cells-Urine 0 SEEN /hpf (0-5)
[2019-06-26 05:10] LABS: Color, Urine Yellow (Yellow); Glucose, Dipstick Normal (Normal); Ketone-Dipstick Negative (Negative); Leukocyte Esterase-Dipstick 100 /ul (Negative); Nitrite-Dipstick Negative (Negative); Occult Blood-Urine Negative /ul (Negative); Protein-Dipstick 30 mg/dl (Negative); Specific Gravity, Urine 1.025 (1.002-1.030); Urine Bilirubin Dipstick Negative (Negative); Urine Clarity Sl. Cloudy (Clear); Urine Urobilinogen Normal (Normal)
[2019-06-26 05:18] LABS: AST(SGOT) 23 U/L (15-37); Alanine Aminotransfer ALT/SGPT 54 U/L (13-56); Albumin, Serum 3.6 g/dL (3.2-5.0); Alkaline Phosphatase 82 U/L (45-117); Anion Gap 8 (5-15); BUN 14 mg/dL (7-18); BUN/Creat Ratio 19.6 RATIO (10-20); Calcium,Total 9.1 mg/dL (8.5-10.1); Chloride 109 mmol/L (98-107); Creatinine, Serum 0.72 mg/dL (0.55-1.02); EST Glomerular Filtration Rate 109 mL/min (>60); Est Glom Filt Rate - Afr Amer 131 mL/min (>60); Estimated Creatinine Clearance 120.19 ml/min; Globulin 3.6 g/dL (2.2-4.2); Glucose 91 mg/dL (74-106); Internal QC Validated? YES +Cl - CLEAR BKGD; Lipase 95 U/L (73-393); Potassium 3.6 mmol/L (3.5-5.1); Pregnancy, Serum, hCG Quali. NEGATIVE Negative; Protein, Total 7.2 g/dL (6.4-8.2); Sodium Level 139 mmol/L (136-145)
[2019-06-26 05:27] LABS: Bacteria 1+ /hpf (None Seen); Squamous Epithelial Cells - UA 5-10 SEEN /hpf (5-10); White Blood Cells 5-10 SEEN /hpf (0-5)
[2019-06-26 05:38] VITALS: BP 115/60; PULSE 94; RESP 18; O2SAT 98
== END 2019-06-26 05:39 | disposition home or self-care (01) ==
PROVIDERS: Emergency Provider Emergency Medicine; PCP Internal Medicine; Referring Provider Internal Medicine
DX: R11.2 Nausea with vomiting, unspecified (principal); R19.7 Diarrhea, unspecified; R51 Headache; M54.9 Dorsalgia, unspecified; R10.9 Unspecified abdominal pain; E03.9 Hypothyroidism, unspecified
CPT/HCPCS: 80053; 81001; 83690; 84703; 85025; 96361; 96374; 99283; J7030; A4216; J2405

== ENCOUNTER 2019-07-17 18:39 | Emergency (ER) | payer MEDICAID, SELFPAY ==
[2019-07-17 18:41] VITALS: BP 147/98; PULSE 106; RESP 16; TEMP 36.4; O2SAT 97; BMI 36.0
--- NOTE | 2019-07-17 18:58 | ED.VIS.GEN ---
History of Present Illness Chief Complaint: Vag Bleeding Informant: Patient Onset: Weeks Narrative: Patient states that she started her regular menstrual cycle on July 02. She bled for 3 days and bleeding stopped. Approximately 5 days later she started spotting. She continues to have spotting every day. She states she will sometimes pass clots as well. 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 She continues to have worsening back pain and now thinks it may be related to her spotting. Patient denies having irregular periods in the past. She is not currently on control. She is not currently sexually active. - Past Medical History (1) Essential hypertension Status: Chronic (2) Hiatal hernia with GERD Status: Chronic (3) IBS (irritable bowel syndrome) Status: Chronic (4) Low back pain Status: Chronic (5) Migraines Status: Chronic (6) Postsurgical hypothyroidism Status: Chronic Past Medical History - Allergies and Home Meds Allergies/Adverse Reactions: Allergies No Known Allergies Allergy (Verified 07/17/19 18:41) Primary Care Physician: Anna De La Rosa MD [Primary Care Provider] - Doctors: [facility] BUSINESS OPERATIONS CONSULTANT Prior records reviewed: Yes Smoking Status: Never smoker Review of Systems General: Denies: Chills, Fever Eyes: Denies: Visual changes - bilaterally ENT: Denies: Bilateral ear pain Cardiovascular: Denies: Chest pain, Palpitations Respiratory: Denies: Dyspnea, Cough Gastrointestinal: Reports: Abdominal pain. Denies: Nausea, Vomiting, Diarrhea Genitourinary: Denies: Dysuria Musculoskeletal: Reports: Back pain Skin: Denies: Rash, Wounds Neurological: Denies: Headache Allergy: Denies: Uticaria Physical Exam Vital Signs/Narrative: Vital Signs Temp Pulse Resp BP Pulse Ox 07/17/19 18:41 97.6 F L 106 H 16 147/98 H 97 Inital Vital Signs reviewed: Yes General: Well nourished, Well developed Head: Normocephalic ENT: Moist mucous membranes Neck: Supple Cardiovascular: Regular rate, Regular rhythm Respiratory: No distress, CTA bilaterally Abdomen: Soft, Tender - Mild lower abdominal tenderness.. Negative for: Guarding, Rebound tenderness : - - Pelvic examination is performed. She has a mild amount of old blood high in the vaginal canal to the cervix. No lesions are noted. No other discharge. Cervix is nontender on bimanual examination. No adnexal masses are appreciated. Extremities: Nontender Skin: Normal color, No rash Neurological: Alert Diagnostic/Tx/Re-eval Laboratory Results 07/17/19 07/17/19 07/17/19 19:05 19:05 19:05 WBC 8.1 RBC 4.47 Hgb 12.3 Hct 37.3 MCV 83.4 MCH 27.5 MCHC 33.0 RDW Std Deviation 36.9 RDW Coeff of Andriy 12.1 Plt Count 239 MPV 9.1 Immature Gran % (Auto) 0.700 Neut % (Auto) 58.4 Lymph % (Auto) 32.6 Stewart % (Auto) 7.7 Eos % (Auto) 0.1 Baso % (Auto) 0.5 Absolute Neuts (auto) 4.7 Absolute Lymphs (auto) 2.64 Nucleated RBC % 0 Sodium 141 Potassium 3.6 Chloride 108 H Carbon Dioxide 26.0 Anion Gap 7 BUN 14 Creatinine 0.74 Estim Creat Clear Calc 116.95 Est GFR (MDRD) Af Amer 126 Est GFR (MDRD) Non-Af 104 BUN/Creatinine Ratio 18.9 Glucose 88 Calcium 9.7 Serum , Qual NEGATIVE Urine Color Urine Clarity Urine pH Ur Specific [place] Urine Protein Urine Glucose (UA) Urine Ketones Urine Occult Blood Urine Nitrite Urine Bilirubin Urine Urobilinogen Ur Leukocyte Esterase Urine RBC Urine WBC Ur Squamous Epith Cells Urine Bacteria Urine Mucus 07/17/19 19:20 WBC RBC Hgb Hct MCV MCH MCHC RDW Std Deviation RDW Coeff of Andriy Plt Count MPV Immature Gran % (Auto) Neut % (Auto) Lymph % (Auto) Stewart % (Auto) Eos % (Auto) Baso % (Auto) Absolute Neuts (auto) Absolute Lymphs (auto) Nucleated RBC % Sodium Potassium Chloride Carbon Dioxide Anion Gap BUN Creatinine Estim Creat Clear Calc Est GFR (MDRD) Af Amer Est GFR (MDRD) Non-Af BUN/Creatinine Ratio Glucose Calcium Serum , Qual Urine Color Yellow Urine Clarity Sl. Cloudy Urine pH 6.0 Ur Specific [place] 1.020 Urine Protein 15 H Urine Glucose (UA) Normal Urine Ketones Negative Urine Occult Blood 250 H Urine Nitrite Negative Urine Bilirubin Negative Urine Urobilinogen Normal Ur Leukocyte Esterase 100 H Urine RBC 0-5 SEEN Urine WBC 10-25 SEEN Ur Squamous Epith Cells 5-10 SEEN Urine Bacteria 2+ Urine Mucus 1+ - Medical Decision Making Patient does have some evidence of UTI. She will be treated with 3-day course of Bactrim, first dose given here. I encouraged her to follow-up with her BUSINESS OPERATIONS CONSULTANT as well. She is in agreement with this plan. ED Disposition - Plan for ED Patient: Disposition: Home or Assisted Living Diagnosis: UTI (urinary tract infection), Vaginal bleeding Instructions: Dysfunctional Uterine Bleeding, Bladder Infection, Female (Adult) Prescriptions: Smz/Tmp Ds [Bactrim Ds] 1 tab PO BID #6 tab Transmission Status: Pending to [id number] Referrals: Anna De La Rosa MD [Primary Care Provider] - Leticia Begum [STAFF PHYSICIAN] - As soon as possible
[2019-07-17 19:20] LABS: Absolute Lymphocyte Count 2.64 X10^3/uL (0.83-4.51); Absolute Neutrophil Count 4.7 X10^3/uL (2.0-7.7); Basophil# 0.04 X10^3/uL; Basophil% 0.5 % (0-1); Eosinophil# 0.01 X10^3/uL; Eosinophils% 0.1 % (0-5); Hematocrit 37.3 % (37-47); Hemoglobin 12.3 g/dL (12.0-15.0); Lymphocyte # 2.64 X10^3/ul (4.0); Lymphocyte % 32.6 % (19-41); Mean Corpuscular Hgb 27.5 pg (27.0-32.0); Mean Corpuscular Volume 83.4 fL (81-99); Mean Platelet Vol. 9.1 fl (6.2-12.0); Monocyte# 0.62 X10^3/uL; Monocyte% 7.7 % (0-10); NRBC Flagged by Analyzer 0 % (0-5); Neutrophil # 4.72 X10^3/uL (2.7-7.7); Neutrophil % 58.4 % (47-70); Platelet Count 239 K/mm3 (150-450); RBC Distribution Width CV 12.1 % (11.6-14.6); RBC Distribution Width SD 36.9 fl (35.1-43.9); Red Blood Count 4.47 M/mm3 (4.2-5.4); White Blood Count 8.1 K/mm3 (4.4-11.0)
[2019-07-17] MEDS: Ketorolac 30 MG/ML Syringe IV (19:20)
[2019-07-17] MEDS: 0.9% Normal Saline 1,000 ML 1000 ML IV (19:20)
[2019-07-17 19:29] LABS: Internal QC Validated? YES +Cl - CLEAR BKGD; Pregnancy, Serum, hCG Quali. NEGATIVE Negative
[2019-07-17 19:30] LABS: Color, Urine Yellow (Yellow); Glucose, Dipstick Normal (Normal); Ketone-Dipstick Negative (Negative); Leukocyte Esterase-Dipstick 100 /ul (Negative); Nitrite-Dipstick Negative (Negative); Occult Blood-Urine 250 /ul (Negative); Protein-Dipstick 15 mg/dl (Negative); Urine Bilirubin Dipstick Negative (Negative); Urine Clarity Sl. Cloudy (Clear); Urine Urobilinogen Normal (Normal)
[2019-07-17 19:36] LABS: Anion Gap 7 (5-15); BUN 14 mg/dL (7-18); BUN/Creat Ratio 18.9 RATIO (10-20); Calcium,Total 9.7 mg/dL (8.5-10.1); Chloride 108 mmol/L (98-107); Creatinine, Serum 0.74 mg/dL (0.55-1.02); EST Glomerular Filtration Rate 104 mL/min (>60); Est Glom Filt Rate - Afr Amer 126 mL/min (>60); Estimated Creatinine Clearance 116.95 ml/min; Glucose 88 mg/dL (74-106); Potassium 3.6 mmol/L (3.5-5.1); Sodium Level 141 mmol/L (136-145)
[2019-07-17 20:14] LABS: Bacteria 2+ /hpf (None Seen); Mucous, Urine 1+ /hpf (<or=2+); Red Blood Cells-Urine 0-5 SEEN /hpf (0-5); Squamous Epithelial Cells - UA 5-10 SEEN /hpf (5-10); White Blood Cells 10-25 SEEN /hpf (0-5)
[2019-07-17 20:36] VITALS: BP 151/96; PULSE 86; RESP 16
[2019-07-17] MEDS: Smz/Tmp Ds Tablet 1 TABLET PO (20:36)
== END 2019-07-17 20:42 | disposition home or self-care (01) ==
PROVIDERS: Emergency Provider Emergency Medicine; PCP Internal Medicine
DX: N39.0 Urinary tract infection, site not specified (principal); N93.9 Abnormal uterine and vaginal bleeding, unspecified; I10 Essential (primary) hypertension
CPT/HCPCS: 80048; 81001; 84703; 85025; 96361; 96374; 99283; J7030; A4216

== ENCOUNTER 2019-08-29 21:02 | Emergency (ER) | payer MEDICAID, SELFPAY ==
[2019-08-29 21:04] VITALS: BP 150/98; PULSE 116; RESP 16; TEMP 36.4; O2SAT 94; BMI 36.0
--- NOTE | 2019-08-29 21:39 | ED.DCSUM_ITS ---
History of Present Illness Chief Complaint: Shortness of Breath Informant: Patient Onset: Days - 2-3 Activity at onset: Light Activity Timing: Continuous, Waxes and wanes Quality: Dyspnea on exertion Current Severity: Mild Maximum Severity: Moderate Worsened by: Exertion Relieved by: Albuterol, Rest Associated Symptoms: Negative for: Cough Chest Pain: None Narrative: Patient states she was having low-grade fevers last couple days along with some shortness of breath that has been better with albuterol that she received from an outside emergency department and [place]. They told her she had bronchitis. She denies having any coughing at all. She developed a fever over 101 today, and her symptoms are persistent but not necessarily worse so she presents to this emergency department. She states she feels more malaise today given her f rylie. She took Tylenol 1-2 hours ago prior to arrival. She is having a little nausea, she has chronically intermittent abdominal discomfort that is mild in her epigastrium right now, consistent with her IBS symptoms that she has had chronically. No changes in bowel movements. No urinary problems. No sore throat, earache, runny nose. She does have some discomfort across her mid-upper back, some of it is pleuritic when she breathes. She also have some pain on her right side, more posteriorly not in her chest, it is mostly nonpleuritic and just present. It is not similar area that the other discomfort is. She has had no pain or swelling in her legs recently. No recent travel out of the area. 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 They do not have any positive cases at this time. She presents during national coronavirus emergency. She also has no history of DVT or pulmonary embolism. - Past Medical History (1) Essential hypertension Status: Chronic (2) Hiatal hernia Status: Chronic (3) IBS (irritable bowel syndrome) Status: Chronic (4) Migraines Status: Chronic (5) Postsurgical hypothyroidism Status: Chronic (6) Multinodular goiter (nontoxic) Status: Resolved Past Medical History - Allergies and Home Meds Allergies/Adverse Reactions: Allergies No Known Allergies Allergy (Verified 08/29/19 21:03) Primary Care Physician: Anna De La Rosa MD [Primary Care Provider] - Surgical History: - - Thyroidectomy Smoking Status: Never smoker Drugs: None Review of Systems General: Reports: Fever, Malaise. Denies: Chills, Sweats Eyes: Denies: Visual changes - bilaterally, Diplopia ENT: Denies: Bilateral ear pain, Rhinorrhea, Sore throat Cardiovascular: Denies: Chest pain, Palpitations Respiratory: Reports: Dyspnea. Denies: Cough, Sputum, Dyspnea on exertion, Orthopnea Gastrointestinal: Reports: Abdominal pain, Nausea. Denies: Vomiting, Diarrhea, Melena, Hematochezia Genitourinary: Denies: Dysuria, Hematuria, Frequency Musculoskeletal: Reports: Back pain. Denies: Myalgias, Neck pain, Swelling, Extremity Pain Skin: Denies: Rash, Wounds Neurological: Denies: Headache, Weakness, Numbness Physical Exam Vital Signs/Narrative: Vital Signs Temp Pulse Resp BP Pulse Ox 08/29/19 21:04 97.5 F L 116 H 16 150/98 H 94 Inital Vital Signs reviewed: Yes General: Well nourished, Well developed, No Acute Distress Head: Normocephalic, Atraumatic Eyes: Perrl, EOMI ENT: Moist mucous membranes, No rhinorrhea Neck: Supple, Nontender, No lymphadenopathy, No JVD Cardiovascular: Regular rate, Regular rhythm, No murmurs, Tachycardia Respiratory: No distress, CTA bilaterally, Chest nontender Abdomen: Soft, Nontender, Nondistended, Normal bowel sounds Back: Nontender, Normal Inspection. Negative for: CVA tenderness Extremities: Nontender, No edema. Negative for: Calf Tenderness Skin: Normal color, No rash Neurological: Alert, Oriented x3, Cranial nerves II-XII grossly intact, Normal Strength, Normal Sensation Psychological: Normal affect, Normal Mood Diagnostic/Tx/Re-eval Clinical Impression(s) from Imaging Studies Chest X-Ray 08/29/19 21:40 IMPRESSION: No acute findings on this portable exam. Follow-up as clinically indicated. at 2207 Reported and signed by: Nicolasa Ann MD Electronically Signed: Nicolasa Ann MD at 22:07 EDT Tel , Service support , Treatment - Dyspnea: Albuterol Repeat Evaluation: Improved - with regards to dyspnea and pain in back - Medical Decision Making Patient really is not coughing. Hard to tell her she has bronchitis without coughing in my opinion. Unknown if this could be an atypical presentation of coronavirus infection; patient does not have known COVID-19 exposure and is not critically ill or clinically septic, has not traveled to/from a region with a CDC level 2 or 3 travel health notice, vital signs are stable without hypoxia, is not ill enough to require admission to the hospital, and at this time does not meet current [facility] requirements for testing for COVID-19. Therefore, she will have to quarantine for 14 days. She was given a work note. Albuterol really helped her symptoms. Perhaps she has developed some reactive airway disease in conjunction with a viral illness. She is unlikely to get worse with a short burst of prednisone in her current condition and I think that the benefits could outweigh the risks she is amenable to that. ED Disposition - Plan for ED Patient: Disposition: Home or Assisted Living Diagnosis: Febrile illness, acute, Reactive airway disease that is not asthma Instructions: ED Upper Resp Infec No Abx Tx Prescriptions: Prednisone [Deltasone] 40 mg PO QHS #8 tab Transmission Status: Pending to [facility]/pharmacy #[id number] Referrals: Anna De La Rosa MD [Primary Care Provider] - 10-14 Days if not better Additional Instructions: -See additional attached quarantine instructions for what to do with regards to the possibility of coronavirus infection, given that you do not currently meet the [facility] requirements for testing since they require us to conserve the limited testing ability for the sickest, hospitalized patients.
--- NOTE | 2019-08-29 21:40 | RAD_ITS ---
HISTORY: PT STATES SOB SINCE THE WEEKEND. STILL SOB WITH EXERTION AND FEVER NOW AT HOME OF 101.6 WITH RIGHT BACK PAIN ADDITIONAL HISTORY: None provided. TECHNIQUE: Frontal chest radiograph. Number of images including paperwork: 1 COMPARISON: 11/26/2018 FINDINGS: LUNGS AND PLEURA: No consolidation, mass or pleural effusion. CARDIAC SILHOUETTE: Unremarkable. MEDIASTINUM AND JAMES: Unremarkable. UPPER ABDOMEN: Unremarkable. SKELETON AND SOFT TISSUES: No acute findings. OTHER DEVICES AND HARDWARE: None. RAD/Chest 1 View (Portable) IMPRESSION: No acute findings on this portable exam. Follow-up as clinically indicated. at 2207 Reported and signed by: Nicolasa Ann MD Electronically Signed: Nicolasa Ann MD at 22:07 EDT Tel , Service support ,
[2019-08-29 21:41] VITALS: O2SAT 98
[2019-08-29] MEDS: Albuterol 2.5 MG/3 ML VIAL.NEB. INHALATION (21:52)
[2019-08-29 22:00] VITALS: PULSE 90; RESP 18
[2019-08-29] MEDS: predniSONE 20 MG Tablet 40 MG PO (23:43)
[2019-08-29 23:45] VITALS: BP 145/93; PULSE 92; RESP 18; TEMP 37; O2SAT 96
== END 2019-08-29 23:46 | disposition home or self-care (01) ==
PROVIDERS: Emergency Provider Emergency Medicine; PCP Internal Medicine
DX: R50.9 Fever, unspecified (principal); J45.909 Unspecified asthma, uncomplicated; E89.0 Postprocedural hypothyroidism; K58.9 Irritable bowel syndrome, unspecified; K44.9 Diaphragmatic hernia without obstruction or gangrene; I10 Essential (primary) hypertension
CPT/HCPCS: 71045; 94640; 99283

== ENCOUNTER → 2019-09-23 14:15 | Outpatient (CLI) | payer MEDICAID, SELFPAY ==
[2019-09-23 08:33] VITALS: BMI 36.0
[2019-09-23 15:23] LABS: Absolute Neutrophil Count 6.9 X10^3/uL (2.0-7.7); Basophil# 0.05 X10^3/uL; Basophil% 0.5 % (0-1); Hematocrit 37.5 % (37-47); Lymphocyte % 28.6 % (19-41); Mean Corpuscular Hgb 26.5 pg (27.0-32.0); Mean Corpuscular Volume 82.8 fL (81-99); Mean Platelet Vol. 9.5 fl (6.2-12.0); Monocyte# 0.55 X10^3/uL; Monocyte% 5.1 % (0-10); NRBC Flagged by Analyzer 0 % (0-5); Neutrophil # 6.87 X10^3/uL (2.7-7.7); Neutrophil % 63.3 % (47-70); Platelet Count 252 K/mm3 (150-450); RBC Distribution Width CV 12.8 % (11.6-14.6); RBC Distribution Width SD 38.5 fl (35.1-43.9); Red Blood Count 4.53 M/mm3 (4.2-5.4); White Blood Count 10.8 K/mm3 (4.4-11.0)
[2019-09-23 16:20] LABS: ALB/GLOB Ratio 1.1 RATIO (0.9-2.4); AST(SGOT) 34 U/L (15-37); Alanine Aminotransfer ALT/SGPT 89 U/L (13-56); Albumin, Serum 3.7 g/dL (3.2-5.0); Alkaline Phosphatase 83 U/L (45-117); Anion Gap 7 (5-15); BUN 12 mg/dL (7-18); BUN/Creat Ratio 17.5 RATIO (10-20); Calcium,Total 9.1 mg/dL (8.5-10.1); Chloride 107 mmol/L (98-107); Creatinine, Serum 0.68 mg/dL (0.55-1.02); EST Glomerular Filtration Rate 114 mL/min (>60); Est Glom Filt Rate - Afr Amer 138 mL/min (>60); Globulin 3.3 g/dL (2.2-4.2); Glucose 91 mg/dL (74-106); Potassium 3.6 mmol/L (3.5-5.1); Sodium Level 138 mmol/L (136-145); Thyroid Stim Hormone (TSH) 0.01 uIU/mL (0.358-3.74)
== END ==
PROVIDERS: PCP Internal Medicine; Referring Provider Internal Medicine; Visit Provider Internal Medicine
DX: E89.0 Postprocedural hypothyroidism (principal); I10 Essential (primary) hypertension
CPT/HCPCS: 36415; 80053; 84443; 85025

== ENCOUNTER → 2019-09-27 08:50 | Outpatient (CLI) | payer MEDICAID, SELFPAY ==
[2019-09-13 09:51] VITALS: BMI 36.0
[2019-09-23 08:33] VITALS: BMI 36.0
--- NOTE | 2019-09-27 13:36 | PFTCOMP_ITS ---
COMPLETE PULMONARY FUNCTION TEST INTERPRETATION Brief HPI: Patient is a 24 year old female, currently under the care of Lb Rangel, who presents to [facility] for complete pulmonary function tests secondary to diagnosis of dyspnea. Respiratory therapist reports good effort and reproducible results. Interpretation: Forced expiration spirometry shows no large airways obstructive ventilatory defect with an FEV1 of 114% predicted. There is no significant bronchodilator response by strict ATS criteria. Spirograms are of good quality and plateau normally. The respiratory flow volume loop shows a normal pattern. Lung volumes by body plethysmography show a normal total lung capacity at 6.1 L, 105% predicted. All other lung volumes are within normal limits. Diffusion capacity by carbon monoxide is decreased at 55% predicted. The airway resistance is normal. No previous pulmonary function tests were available for review. Impression: Isolated reduction in diffusing capacity. Consider echocardiogram for pulmonary vascular hypertension if not completed previously.
== END ==
PROVIDERS: PCP Internal Medicine; Referring Provider Nurse Practitioner Family; Visit Provider Nurse Practitioner Family
DX: R06.00 Dyspnea, unspecified (principal)
CPT/HCPCS: 94060; 94726; 94729

== ENCOUNTER → 2019-10-07 14:52 | Outpatient (CLI) | payer MEDICAID, SELFPAY ==
[2019-09-23 08:33] VITALS: BMI 36.0
[2019-10-07 13:43] VITALS: BMI 36.0
--- NOTE | 2019-10-07 14:53 | ECHOD_ITS ---
Reason For Study: SOB, ABN PFT Procedure This was a 2D Doppler, Color Flow transthoracic echocardiogram. Exam performed in department. Left Ventricle Normal LV size. Left ventricular systolic function is normal. The estimated ejection fraction is 60 %. No regional wall motion abnormalities noted. Right Ventricle Normal RV size. Normal systolic function. Atria Normal left atrium. Normal right atrium. Mitral Valve Normal mitral valve. Tricuspid Valve Normal tricuspid valve. Mild tricuspid valve insufficiency. Aortic Valve Normal aortic valve. Trisinus/trileaflet aortic valve. Pulmonic Valve Normal pulmonic valve. Great Vessels Normal aortic root. The pulmonary artery is normal size. Normal inferior vena cava. Pericardium/Pleural No pericardial effusion. MMode/2D Measurements & Calculations LVIDd: 4.6 cm IVSd: 1.1 cm Ao root diam: 3.3 cm LVIDs: 2.8 cm LVPWd: 1.1 cm RVDd: 3.2 cm FS: 39.2 % LAV(MOD-bp): 51.4 ml LA A4 area: 17.4 cm2 LA dimension(2D): 3.8 cm LAV(MOD-bp) Indexed: 24.0 ml/m2 LAV(MOD-sp2): 50.4 ml LAV(MOD-sp4): 50.2 ml RA A4 area: 15.1 cm2 Time Measurements MV dec time: 0.10 sec Doppler Measurements & Calculations MV E max fransisco: 60.5 cm/sec Lat Peak E' Fransisco: 13.1 cm/sec Med Peak E' Fransisco: 8.4 cm/sec MV A max fransisco: 82.0 cm/sec E/E' lat: 4.6 E/E' med: 7.2 MV E/A: 0.74 Ao V2 max: 131.2 cm/sec LV V1 max: 108.8 cm/sec PA V2 max: 90.9 cm/sec Ao max P.9 mmHg LV V1 max P.7 mmHg TR max fransisco: 195.8 cm/sec TR max P.3 mmHg Interpretation Summary Normal LV size. Left ventricular systolic function is normal. The estimated ejection fraction is 60 %. Structurally normal valves. Ordering Physician: Estrella^Anna^^^ Referring Physician: Anna De La Rosa Performed By: Madiha Tee, RA, RVT
== END ==
PROVIDERS: PCP Internal Medicine; Referring Provider Internal Medicine; Visit Provider Internal Medicine
DX: R06.02 Shortness of breath (principal); R06.00 Dyspnea, unspecified
CPT/HCPCS: 93306

== ENCOUNTER 2019-10-14 16:59 | Outpatient (REF) | payer SELFPAY ==
[2019-10-07 13:43] VITALS: BMI 36.0
== END 2019-10-14 23:00 | disposition home or self-care (01) ==
LOC: EDREF 16:59
DX: Z04.41 Encounter for examination and observation following alleged adult rape (principal)

== ENCOUNTER → 2019-11-04 11:20 | Outpatient (CLI) | payer MEDICAID, SELFPAY ==
[2019-11-03 12:25] VITALS: BMI 36.0
--- NOTE | 2019-11-04 11:20 | RAD_ITS ---
STUDY: X-RAY - RIGHT KNEE REASON FOR EXAM: Female, 24 years old. KNEE PAIN, NO TRAUMA TECHNIQUE: 4 view(s) of the knee. COMPARISON: None. FINDINGS: Normal visualized distal femur. Normal visualized proximal tibia and fibula. Normal proximal tibiofibular articulation. Normal medial femorotibial compartment. Normal lateral femorotibial compartment. Normal patellofemoral articulation. Minimal joint effusion RAD/Knee 4 or More Views IMPRESSION: Minimal joint effusion. Electronically Signed: Yung Zuluaga, at 12:24 EDT , Service support ,
== END ==
PROVIDERS: Referring Provider Orthopaedic Surgery; Visit Provider Orthopaedic Surgery
DX: M25.561 Pain in right knee (principal)
CPT/HCPCS: 73564

== ENCOUNTER → 2019-11-07 07:36 | Outpatient (CLI) | payer MEDICAID, SELFPAY ==
[2019-11-04 11:43] VITALS: BMI 36.0
--- NOTE | 2019-11-07 07:38 | MRI_ITS ---
STUDY: MRI RIGHT KNEE REASON FOR EXAM: Female, 24 years old. Knee pain TECHNIQUE: Standardized fat and water weighted pulse sequences were obtained in all 3 orthogonal planes. COMPARISON: X-ray 11/04/2019 FINDINGS: Normal medial meniscus. Normal hyaline cartilage of the medial femorotibial compartment. Normal medial femoral condyle and tibial plateau. Normal medial collateral ligamentous complex (MCL). Normal distal semimembranosus, gracilis and semitendinosus tendons. Normal lateral meniscus. Normal hyaline cartilage of the lateral femorotibial compartment. Normal lateral femoral condyle and tibial plateau. Normal proximal tibiofibular articulation. Normal lateral collateral (fibular) ligament. Normal popliteus tendon. Normal biceps femoris tendon. Normal anterior cruciate ligament (ACL). Normal posterior cruciate ligament (PCL). Normal congruent patellofemoral articulation. Normal hyaline cartilage of the patellofemoral compartment. Normal medial and lateral patellar retinaculum. Normal quadriceps tendon. Normal patellar tendon. Normal Hoffa''s fat pad. There is a moderate volume joint effusion. The soft tissues are unremarkable. The otherwise visualized osseous structures are unremarkable. MRI/Lower Ext Joint Only (Routine) IMPRESSION: Moderate joint effusion. No other internal arrangement. Electronically Signed: Niles Weaver MD at 9:57 EDT Tel , Service support ,
== END ==
PROVIDERS: PCP Internal Medicine; Referring Provider Orthopaedic Surgery; Visit Provider Orthopaedic Surgery
DX: S83.241A Other tear of medial meniscus, current injury, right knee, initial encounter (principal); M25.561 Pain in right knee
CPT/HCPCS: 73721

== ENCOUNTER → 2019-11-09 | Outpatient (CLI) | payer MEDICAID, SELFPAY ==
[2019-11-09 08:01] VITALS: BMI 36.0
[2019-11-09 11:12] LABS: Body Fluid QC Type(s) BF1Q; Source- Body Fluid SYNOVIAL
[2019-11-10 09:44] LABS: Pathologist Review Reviewed
== END | disposition home or self-care (01) ==
LOC: LABSPEC 10:22
PROVIDERS: PCP Internal Medicine; Visit Provider Orthopaedic Surgery
DX: M25.461 Effusion, right knee (principal)
CPT/HCPCS: 89060

== ENCOUNTER → 2019-11-11 16:03 | Outpatient (CLI) | payer MEDICAID, SELFPAY ==
[2019-11-11 15:45] VITALS: BMI 36.0
[2019-11-11 18:23] LABS: Thyroid Stim Hormone (TSH) < 0.01 uIU/mL (0.358-3.74)
== END ==
PROVIDERS: PCP Internal Medicine; Referring Provider Internal Medicine; Visit Provider Internal Medicine
DX: E89.0 Postprocedural hypothyroidism (principal)
CPT/HCPCS: 36415; 84443

== ENCOUNTER 2019-12-30 22:54 | Emergency (ER) | payer MEDICAID, SELFPAY ==
[2019-11-11 15:45] VITALS: BMI 36.0
[2019-12-30 22:54] VITALS: BP 134/91; PULSE 111; RESP 15; TEMP 36.4; O2SAT 97; BMI 38.7
--- NOTE | 2019-12-30 23:15 | ED.DCSUM_ITS ---
History of Present Illness Chief Complaint: Lower Extremity Injury Informant: Patient Occurred: Days Mechanism/Context: - - Traumatic pain and swelling right knee Onset: Days Context: Sudden Onset Timing: Continuous Quality of Pain: Dull, Aching Location: Right knee Current Severity: Mild Maximum Severity: Moderate Worsened by: Movement and weightbearing Relieved by: Nothing Associated Symptoms: Negative for: Parasthesia, Weakness, Loss of Funtion Narrative: Patient is a 24-year-old female. She had an outpatient MRI that revealed no abnormality other than the right knee effusion. The orthopedist office notes were reviewed. Arthrocentesis was undertaken and she reported improvement. No history of trauma. She denies fever, chills or night sweats. She denies any other symptoms that would suggest autoimmune disorder. Prior similar symptoms: Yes Recent Illness/Hospitalization: No - Office visit beginning of October - Past Medical History (1) Essential hypertension Status: Chronic (2) Hiatal hernia Status: Chronic (3) IBS (irritable bowel syndrome) Status: Chronic (4) Migraines Status: Chronic (5) Postsurgical hypothyroidism Status: Chronic (6) Multinodular goiter (nontoxic) Status: Resolved Past Medical History - Allergies and Home Meds Allergies/Adverse Reactions: Allergies No Known Allergies Allergy (Verified 12/30/19 22:58) Primary Care Physician: Anna De La Rosa MD [Primary Care Provider] - Prior records reviewed: Yes Surgical History: - Lives: Alone Smoking Status: Never smoker Alcohol: None Drugs: None Review of Systems General: Denies: Chills, Fever, Malaise, Subjective, Sweats, Weight loss Musculoskeletal: Reports: Swelling, Extremity Pain. Denies: Myalgias, Arthralgias, Neck pain, Back pain Skin: Denies: Rash, Wounds Neurological: Denies: Weakness, Parasthesia, Numbness Hematologic: Denies: Easy bruising, Easy bleeding Physical Exam Vital Signs/Narrative: Vital Signs Temp Pulse Resp BP Pulse Ox 12/30/19 22:54 97.5 F L 111 H 15 134/91 H 97 Inital Vital Signs reviewed: Yes - Extremity Exam Right Hip: Negative for: Abrasion, Contusion, Deformity, Edema, Hematoma, Limited ROM, - Right Femur: Negative for: Abrasion, Contusion, Deformity, Edema, Hematoma, Limited ROM, - Right Knee: Limited ROM - She is able to extend to 160 degrees and flex to approximately 100 degrees before she experiences pain. The knee is swollen. There is an effusion. The patella is not ballotable. There is no joint line tenderness. There is no laxity with varus valgus stress testing. Modified Carol's test was negative. Lockman's test was difficult due to body habitus. There is no pain or fullness in the popliteal fossa. There is no erythema or warmth of the skin. There is no neurovascular compromise of the lower extremity.. Negative for: Abrasion, Contusion, Deformity, Edema, Hematoma Right Tib fib: Negative for: Abrasion, Contusion, Deformity, Edema, Hematoma, Limited ROM, - Right Foot: Negative for: Abrasion, Contusion, Deformity, Edema, Hematoma, Limited ROM, - General: Well nourished, Well developed, Obese Head: Normocephalic, Atraumatic Eyes: Perrl, EOMI. Negative for: Pale conjunctiva, Scleral icterus Cardiovascular: Regular rate, Regular rhythm Respiratory: No distress Skin: Normal color, No rash, No Trauma. Negative for: Cyanosis, Diaphoresis, J aundice Neurological: Alert, Oriented x3, Cranial nerves II-XII grossly intact, Normal Strength, Normal Sensation Psychological: Depressed Diagnostic/Tx/Re-eval - Medical Decision Making Orthopedist office notes were reviewed and MRI report was reviewed. Since she had an MRI and there was no abnormality there is no history of trauma x-ray was canceled. She was treated with NSAIDs and she has no contraindication. She was informed that she should follow-up with the orthopedist. ED Disposition - Plan for ED Patient: Disposition: Home or Assisted Living Diagnosis: Effusion of right knee joint Instructions: ED Effusion Knee Prescriptions: Naproxen [Naprosyn] 500 mg PO BID #14 tab Transmission Status: Pending to [facility]/pharmacy #[id number] Referrals: Anna De La Rosa MD [Primary Care Provider] - As Needed Sami Corona DO [STAFF PHYSICIAN] - 5-7 Days
[2019-12-30] MEDS: Naproxen 500 MG Tablet PO (23:16)
[2019-12-30 23:25] VITALS: RESP 15
== END 2019-12-30 23:25 | disposition home or self-care (01) ==
PROVIDERS: Emergency Provider Emergency Medicine; PCP Internal Medicine
DX: M25.461 Effusion, right knee (principal); I10 Essential (primary) hypertension; K44.9 Diaphragmatic hernia without obstruction or gangrene; K58.9 Irritable bowel syndrome, unspecified
CPT/HCPCS: 99283

== ENCOUNTER → 2020-01-02 12:50 | Outpatient (CLI) | payer MEDICAID, SELFPAY ==
[2020-01-02 11:29] VITALS: BMI 38.7
--- NOTE | 2020-01-02 12:51 | VDLE_ITS ---
Reason For Study: Pain RIGHT LEFT GSV is normal. CFV is compressible, spontaneous, phasic, CFV is compressible, spontaneous, phasic, competent, and demonstrates normal competent and demonstrates normal augmentation. augmentation. FV is compressible, spontaneous, phasic, competent and demonstrates normal augmentation. POP V is compressible, spontaneous, phasic, competent and demonstrates normal augmentation. T/P Trunk is compressible. PTV is compressible. RT PerV is compressible. Procedure Exam performed in department. A preliminary report was called and/or faxed to Dr. Corona. Interpretation Summary There is no evidence of right lower extremity deep vein thrombosis. Right great saphenous vein appears patent and compressible segmentally. Patent and compressible left common femoral vein Ordering Physician: Sami Corona Referring Physician: Anna De La Rosa Performed By: Ivy Clay, RA, RVT
== END ==
PROVIDERS: PCP Internal Medicine; Referring Provider Orthopaedic Surgery; Visit Provider Orthopaedic Surgery
DX: M79.661 Pain in right lower leg (principal)
CPT/HCPCS: 93971

== ENCOUNTER → 2020-01-03 15:19 | Outpatient (CLI) | payer MEDICAID, SELFPAY ==
[2020-01-03 15:07] VITALS: BMI 38.7
[2020-01-03 17:24] LABS: Thyroid Stim Hormone (TSH) 0.01 uIU/mL (0.358-3.74)
== END ==
PROVIDERS: PCP Internal Medicine; Referring Provider Internal Medicine; Visit Provider Internal Medicine
DX: E89.0 Postprocedural hypothyroidism (principal)
CPT/HCPCS: 36415; 84443

== ENCOUNTER → 2020-01-12 14:30 | Outpatient (CLI) | payer MEDICAID, SELFPAY ==
[2020-01-03 15:07] VITALS: BMI 38.7
--- NOTE | 2020-01-12 14:39 | VDLE_ITS ---
Reason For Study: Swelling, calf pain RIGHT LEFT GSV is normal. CFV is compressible, spontaneous, phasic, CFV is compressible, spontaneous, phasic, competent, and demonstrates normal competent and demonstrates normal augmentation. augmentation. FV is compressible, spontaneous, phasic, competent and demonstrates normal augmentation. POP V is compressible, spontaneous, phasic, competent and demonstrates normal augmentation. T/P Trunk is compressible. PTV is compressible. RT PerV is compressible. Procedure Exam performed in department. A preliminary report was called and/or faxed to Nikolay. Interpretation Summary There is no evidence of right lower extremity deep vein thrombosis. Right great saphenous vein appears patent and compressible segmentally. Normal flow patterns left common femoral vein Ordering Physician: Lori Link Referring Physician: Anna De La Rosa Performed By: Génesis Max RVT
[2020-01-12 16:15] LABS: Pathologist Comment May follow
[2020-01-12 18:26] LABS: Synovial Fld Mononuclear WBC % 90.9 %; Synovial Fld Polynuclear WBC # 0.039 10^3/uL; Synovial Fld Polynuclear WBC % 9.1 %
[2020-01-12 18:30] LABS: Appearance /Synovial Fluid Sl hazy (CLEAR); Color / Synovial Fluid Yellow (Pale Yellow)
[2020-01-12 18:36] LABS: Synovial Fld Mononuclear WBC # 0.391 10^3/ul
[2020-01-12 18:43] LABS: AUTO B FLUID DILUENT BKGD CT WBC <0.1 RBC <0.01 (W<.1,R<.01)
[2020-01-12 18:44] LABS: CRYSTALS, BODY FLUID See PATH REV; Source / Synovial Fluid RT.KNEE; Source- Body Fluid SYNOVIAL
[2020-01-12 18:57] LABS: RBC /Synovial Fluid 0.001 10^6/uL (0)
[2020-01-12 19:45] LABS: Body Fluid QC Type(s) BF1Q.BF2Q; Lymph 5 %; Monocyte /Synovial Fluid 86 %; Neutrophil 9 % (0-25)
[2020-01-13 12:31] LABS: Pathologist Review Reviewed
[2020-01-15 01:18] LABS: GLUCOSE, SYNOVIAL FLUID 89 mg/dL (.); PROTEIN, SYNOVIAL FLUID 3.6 g/dL (.)
== END ==
PROVIDERS: PCP Internal Medicine; Referring Provider Orthopaedic Surgery; Visit Provider Orthopaedic Surgery
DX: M25.561 Pain in right knee (principal); M79.661 Pain in right lower leg; M25.461 Effusion, right knee
CPT/HCPCS: 82945; 84157; 87070; 87075; 87205; 89050; 89051; 89060; 93971

== ENCOUNTER → 2020-01-17 14:38 | Outpatient (CLI) | payer MEDICAID, SELFPAY ==
[2020-01-17 13:52] VITALS: BMI 38.7
[2020-01-17 14:46] LABS: Lyme Ab Screen Interpretation REF LAB
[2020-01-17 15:36] LABS: Absolute Neutrophil Count 4.8 X10^3/uL (2.0-7.7); Basophil# 0.05 X10^3/uL; Basophil% 0.6 % (0-1); Eosinophil# 0.18 X10^3/uL; Eosinophils% 2.2 % (0-5); Hematocrit 40.8 % (37-47); Hemoglobin 13.3 g/dL (12.0-15.0); Lymphocyte % 31.2 % (19-41); Mean Corp Hgb Conc 32.6 g/dL (32-36); Mean Corpuscular Hgb 27.1 pg (27.0-32.0); Mean Corpuscular Volume 83.3 fL (81-99); Mean Platelet Vol. 9.5 fl (6.2-12.0); Monocyte# 0.64 X10^3/uL; Monocyte% 7.7 % (0-10); NRBC Flagged by Analyzer 0 % (0-5); Neutrophil # 4.79 X10^3/uL (2.7-7.7); Neutrophil % 57.5 % (47-70); Platelet Count 287 K/mm3 (150-450); RBC Distribution Width CV 12.4 % (11.6-14.6); RBC Distribution Width SD 37.7 fl (35.1-43.9); White Blood Count 8.3 K/mm3 (4.4-11.0)
[2020-01-17 16:31] LABS: Vitamin D,25 Hydroxy 24.3 ng/mL
[2020-01-17 16:37] LABS: Rheumatoid Factor < 10.0 IU/mL (<15)
[2020-01-17 16:50] LABS: Erythrocyte Sedimentation Rate 14 mm/hr (0-20)
[2020-01-18 13:51] LABS: Pathologist Comment May follow
[2020-01-18 13:53] LABS: AUTO B FLUID DILUENT BKGD CT WBC <0.1 RBC <0.01 (W<.1,R<.01)
[2020-01-18 13:54] LABS: Color / Synovial Fluid Red (Pale Yellow); Source / Synovial Fluid RIGHT KNEE; Source- Body Fluid SYNOVIAL
[2020-01-18 13:55] LABS: Appearance /Synovial Fluid Cloudy (CLEAR); RBC /Synovial Fluid 0.011 10^6/uL (0)
[2020-01-18 13:56] LABS: Synovial Fld Mononuclear WBC % 87.9 %; Synovial Fld Polynuclear WBC % 12.1 %
[2020-01-18 13:57] LABS: Body Fluid QC Type(s) BF2Q,BF3Q
[2020-01-18 13:58] LABS: Lymph 23 %; Neutrophil 12 % (0-25)
[2020-01-18 13:59] LABS: Monocyte /Synovial Fluid 44 %; Other Cell /Synovial Fluid 21 %
[2020-01-19 14:06] LABS: Pathologist Review Reviewed
[2020-01-19 20:42] LABS: ANTINUCLEAR ANTIBODIES DIRECT Negative (Negative)
[2020-01-19 20:49] LABS: GLUCOSE, SYNOVIAL FLUID 104 mg/dL (.); PROTEIN, SYNOVIAL FLUID 4.1 g/dL (.)
[2020-01-24 15:21] LABS: CCP IgG Antibodies 5 units (0-19); HLA B27 Negative (.); Lyme Scn Total Ab w/Rflx <0.91 ISR (0.00-0.90)
== END ==
PROVIDERS: Physician Assistant; PCP Internal Medicine; Referring Provider Orthopaedic Surgery; Visit Provider Orthopaedic Surgery
DX: M25.561 Pain in right knee (principal); M25.461 Effusion, right knee; S83.241A Other tear of medial meniscus, current injury, right knee, initial encounter; R25.2 Cramp and spasm
CPT/HCPCS: 36415; 81374; 82306; 82945; 84157; 85025; 85652; 86038; 86140; 86200; 86431; 86618; 87070; 87075; 87205; 89050; 89051; 89060

== ENCOUNTER 2020-03-02 05:46 | Day surgery (SDC) | payer MEDICAID, SELFPAY ==
[2020-01-24 15:40] VITALS: BMI 38.7
--- NOTE | 2020-02-02 11:19 | HP_ITS ---
I have re-examined the patient. There are no clinical changes since date of exam. Intake Vital Signs 01/24/20 BMI 38.7 Intake Visit Reasons: Right knee Chief Complaint: Rt knee problems Accompanied by: self Is patient in pain?: Yes Allergies No Known Allergies Allergy (Verified 01/02/20 11:28) Medications levothyroxine 112 mcg tablet 112 mcg PO DAILY #30 tab 01/04/20 [Rx Confirmed 01/24/20] meloxicam 15 mg tablet 15 mg PO DAILY #30 tab 01/20/20 [Rx Confirmed 01/24/20] PFSH Social History (Updated 02/02/20 @ 11:[address] Lori Link DO) Smoking Status: Never smoker alcohol intake: never substance use type: does not use what type of physical activity do you participate in: walking HPI Right knee: Surgical H&P: Yes Details: Parts of this documentation were recorded by a scribe, this documentation accurately reflects the service provided and the decisions made by me, Dr. Lori Link DO 01/24/20 [id number]. JESSY LOPEZ is a 24 year old F here today for F/U on right knee. Patient is here to go over her blood work she had completed along with discussing surgery for the right knee. SHe continues to have medial knee pain along with swelling of the knee. Denies numbness, tingling or other associated symptoms.Denies any changes since the last visit. We discussed the current risk associated COVID-19. While it is understood that there is a community spread of COVID 19 the risk of erich COVID-19 while at [facility] is very low, however, the risk cannot be completely mitigated because of the community spread of the disease. We discussed in detail the risk of exposure to and or potential harm posed by the COVID-19 virus with having a surgery/procedure at this time versus the risk of delaying the surgery/procedure. Is not possible to know either the risk of delaying the surgery procedure or chance of getting an infection with perfect accuracy, but a joint decision was made to proceed at this time with a schedule surgery/procedure as indicated on the consent form. Patient was notified that we will need to comply with any screening or testing [facility] wishes to perform or that surgery may be delayed for any positive results. ROS Musc Reports joint pain, Reports joint swelling, Denies numbness, Reports stiffness, Denies tingling Skin/Breast Reports system reviewed and no additional complaints, except as docu Neuro No numbness, No tingling Ortho Exam Right Knee Skin/Wound: No erythema, No ecchymosis, Yes swelling Homans Sign: No 1+: Effusion Knee ROM: Yes ROM-Extension -20 to 0, No ROM-Flexion 0-140 Examination: Yes Med jt line tenderness, Yes Lat jt line tenderness, Yes Pain with flexion, No Pain with extention, Yes Carol's Test, No TTP Pes Anserine Stability: NML: Anterior Drawer, NML: Posterior Drawer KNEE: calf tenderness to light touch. Assessment & Plan Problems 1. Tear of medial meniscus of right knee, current, unspecified tear type, subsequent encounter [id number] Plan Patient educated that her labs are normal and there are no abnormalities. Patient educated that she does have a medial meniscus tear and this is the cause of her pain. Reviewed the pre-operative plans with the patient. Risks and benefits of the procedure were fully explained, including but not limited to infection, neurovascular injury, continued pain, arthritis, stiffness, need for further surgery, re-injury, DVT, PE, general risks of anesthesia, and loss of limb or life. The patient understands all the risks and does wish to proceed with written consent. Patient wishes to proceed with Right knee arthroscopy with synovial tissue biopsy with medial meniscus repair vs meniscectomy and repair as indicated. Follow up post op or sooner if pain, swelling, numbness or associated symptoms, or concerns develop. All questions answered. Patient in agreement of plan. Coding Level of Care Code Off vis,est,level 4 Diagnoses Tear of medial meniscus of right knee, current, unspecified tear type, subsequent encounter Q74.883K ??Encounter type: subsequent encounter ??Meniscus tear of knee type: unspecified type ??Tear current or old: current 02/02/20 1119 <Electronically signed by Lori reno DO> Date _ Lori Link DO
[2020-02-27 12:41] VITALS: BMI 38.7
[2020-03-02] VITALS (7 sets, daily range): BP systolic 133–156; BP diastolic 85–114; PULSE 85–107; RESP 16; TEMP 36.4–37.2; O2SAT 93–99; BMI 39.7
[2020-03-02 06:26] LABS: Internal QC Validated? YES +Cl - CLEAR BKGD; Pregnancy, Urine Negative Negative
[2020-03-02] MEDS: Lactated Ringers 1,000 ML 100 ML IV (06:50)
--- NOTE | 2020-03-02 07:04 | PCM.DC.ORTHO ---
Discharge Diet: No Restrictions - wbat operative limb, ankle PUmps, Ice, Elevate toes above nose, follow up in 2 weeks, remove dressings in 4 days and apply bandaids to incision sites, keep incision clean/dry until pod4, call with concerns Discharge Activity: May Not Drive May shower in (days): 1 Ice area for (Minutes): 20 - Every hour while awake. Weight Bearing Status: Weight bearing as tolerated Keep extremity elevated above heart level: Operative Extremity Call your doctor if your incision/area has: Continuous Slow Oozing, Sudden Increased Bleeding, Increased Pain/ Swelling, Increased Redness, Foul Smelling Discharge Call your doctor if you observe: Fever of 101 or Higher, Coldness, Increased Pain, Numbness or Tingling, Change in Color, Calf discomfort Allergies/Adverse Reactions: Allergies No Known Allergies Allergy (Verified 02/03/20 11:42) Medications to take at Discharge levothyroxine 112 mcg tablet 112 mcg PO DAILY #30 tab 01/04/20 meloxicam 15 mg tablet 15 mg PO DAILY #30 tab 01/20/20 Hydrocodone Bitart/Apap 5-325 [[place] 5MG-325MG] 1 - 2 tab PO Q6H PRN PRN 5 Days #40 tab 03/02/20 The following prescriptions were given: Hydrocodone Bitart/Apap 5-325 [[place] 5MG-325MG] 1 - 2 tab PO Q6H PRN PRN 5 Days #40 tab PRN Reason: Pain Transmission Status: Received by [facility] Primary Care Physician: Anna De La Rosa MD [Primary Care Provider] - Test Results: Test results from this visit will be discussed in further detail at your follow-up appointment, if applicable. Please Follow Up With: Lori Link, DO - [phone]
--- NOTE | 2020-03-02 07:05 | PCM.OPRPT ---
Report of Operation Date of Procedure: 03/02/20 Pre-Operative Diagnosis: right knee medial knee pain questionable med men tear, chondromalacia, synovitis Post-Operative Diagnosis: same, intrasubstance med men tear Surgery/Procedure Performed:: right knee arthroscopy, patella and mfc chondroplasty, extensive synovectomy, synovial biopsy wardsperson: Barrera Mayberry Type of Anesthesia:: General Anesthesiologist: Jack Foy Specimen's removed: knee synovium Estimated Blood Loss (mL): min Fluids Replaced: 800cc lr Description of Procedure: Preoperative note Patient is a 24-year-old female with continued right knee effusions she has had a lab work-up for we do not find any inflammatory arthritis however she does have other autoimmune diseases and concern to the fact that she does not have any obvious meniscal pathology other than an intrasubstance tear of her medial meniscus that the meniscus tear is worse than it appears on MRI versus having synovitis that is causing this recurrent effusions. Discussed this with patient. Patient would like a diagnostic arthroscopy as well as potentially are therapeutic based on our findings. Risk benefits and alternatives surgery discussed with patient. Risk including but not limited to blood loss, blood clot, infection, neurovascular, failure procedure, loss of life and loss of limb. Patient is aware would like to proceed with right knee arthroscopy repair as indicated Operative note Patient seen and examined preoperative holding area. Right knee was marked. Patient brought to the operating room placed supine on the operating table. Signed, anesthesia, antibiotics were administered. The right leg was prepped and draped usual sterile technique fashion with a tourniquet on her upper thigh and SCDs placed on her contralateral limb. We marked out our bony landmarks for portal placement the right leg with an elevated segmented tourniquet was raised to pressure of 275 torr. Timeout was performed. We then used a 11 blade creator anterior lateral portal. Began our diagnostic arthroscopy. She had grade 2 fibrillated changes in the central pole of her patella as well as the medial aspect of her patella as well as the medial aspect of her medial femoral condyle. We then created an anteromedial portal under direct visualization. We had to resect's extensive synovitis in both the anterior medial and anterior lateral joint. There were no loose bodies in the anterior medial scar and started far lateral lateral or medial recesses. Again after shaving out the synovitis we then inserted the probe she did have an intrasubstance tear of the medial meniscus but it was not unstable. The ACL and PCL were present within the notch. We then moved to the lateral joint line. Patient had grade 2 fibrillated changes of the tibial plateau however the were not unstable and there were no loose piece of cartilage. The lateral meniscus was intact and stable to probing. We then moved back to the patella we then debrided gently debrided the loose cartilage pieces in the central line as well as the medial aspect of the patella with a shaver we also debrided back the unstable pieces the medial femoral condyle with a shaver as well. The knee we then took synovial tissue from the suprapatellar pouch and sent this pathology for further evaluation. The knee was irrigated with copious amounts of sterile saline. Tourniquet was deflated for total working time of 30 minutes. Tourniquet portals were closed with interrupted 4-0 nylon stitches. Sterile dressings were applied. Patient taught procedure well no complication check recovery room in stable condition. Postoperative note Weight-bear as tolerated right leg Follow-up in 2 weeks Remove dressing in 4 days Call with increased pain numbness tingling or further issues arise Pharmacy has prescriptions Dragon disclaimer This note was generated with [employer] dictation software. It may contain incorrect words, spelling, and punctuation that were not noted in checking the note before signing.
[2020-03-02] MEDS: Cefazolin 2 GM in 0.9% Normal Saline 100 ML IV (07:13)
--- NOTE | 2020-03-02 07:15 | SYN_PTH ---
PATIENT: JESSY LOPEZ LOC: [facility] [place] U#:[id number] AGE/SX: 24/F ROOM: RE03/02/[address]: Dr. Lori Link DO : 1995 BED: DIS: 03/02/2020 SPEC #: [id number] RECD: 03/02/20 08:57 STATUS: GAVIN LATA #: [id number] LORIE: 03/02/20 07:[address]: Lori Link DEPT: SURGICAL PATHOLOGY RECD BY: Amanda Michaels ENTERED: 03/02/20 09:23 SP TYPE: SYNOVIUM OTHR DR: Dr. Anna De La Rosa MD Tissues: Synovial tissue of joint, NOS Procedures: Surgery Specimen Level IV HEADER OPERATION: Arthroscopy, synovial tissue biopsy, chondroplasty PRE-OP DIAGNOSIS: Tear of medial meniscus of right knee TISSUE SUBMITTED: Synovial tissue right knee MICROSCOPIC DIAGNOSIS Synovium of right knee, biopsy: Mild hyperplasia with associated minimal chronic inflammation. AM:mary 03/05/20 MICROSCOPIC DESCRIPTION Slides are reviewed. GROSS DESCRIPTION Received in fixative is one container labeled with the patient's name and designated synovial tissue right knee. The specimen consists of multiple irregular fragments of lebron-light yellow soft tissue that in aggregate measure 2 x 1.5 x 0.3 cm. The specimen is totally submitted in one cassette. / PEREZ:mary 03/02/20 TC:3 CPT: 64057
[2020-03-02] MEDS: Bupiv/Epi 0.25% 30 ML Vial (08:00)
[2020-03-02] MEDS: Mupirocin Ointment 22gm Tube 1 APPLIC (08:00)
[2020-03-02] MEDS: Epinephrine (1 mg/ml) 1 MG/ML VIAL (08:03)
[2020-03-02] MEDS: HYDROcodone Bitartrate/Apap 5/325 Tablet PO (10:07)
== END 2020-03-02 10:57 | disposition home or self-care (01) ==
LOC: SDC 05:47 → AC 05:47
PROVIDERS: Anesthesiology; PCP Internal Medicine; Referring Provider Orthopaedic Surgery; Visit Provider Orthopaedic Surgery
PROC: (CPT 29882; principal; 2020-03-02 06:55)
DX: M65.9 Synovitis and tenosynovitis, unspecified (principal); M94.261 Chondromalacia, right knee; S83.241A Other tear of medial meniscus, current injury, right knee, initial encounter; Z11.59 Encounter for screening for other viral diseases; K58.9 Irritable bowel syndrome, unspecified; E06.9 Thyroiditis, unspecified; Z79.899 Other long term (current) drug therapy
CPT/HCPCS: 29876; 81025; 87635; 88305; C9803; J7120; J2405; U0003

== ENCOUNTER → 2020-03-03 11:49 | Outpatient (CLI) | payer MEDICAID, SELFPAY ==
[2020-03-02 06:27] VITALS: BMI 39.7
== END ==
PROVIDERS: PCP Internal Medicine; Referring Provider Nurse Practitioner Family; Visit Provider Nurse Practitioner Family
DX: E89.0 Postprocedural hypothyroidism (principal)
CPT/HCPCS: 36415; 84439; 84443

== ENCOUNTER → 2020-03-06 15:46 | Outpatient (CLI) | payer MEDICAID, SELFPAY ==
[2020-03-06 15:15] VITALS: BMI 40.4
== END ==
PROVIDERS: PCP Internal Medicine; Referring Provider Internal Medicine; Visit Provider Internal Medicine
DX: E03.9 Hypothyroidism, unspecified (principal)
CPT/HCPCS: 36415; 84443

== ENCOUNTER → 2020-04-12 14:47 | Outpatient (CLI) | payer MEDICAID, SELFPAY ==
[2020-03-06 21:34] VITALS: BMI 39.7
--- NOTE | 2020-04-12 14:48 | VDLE_ITS ---
Reason For Study: Pain RIGHT GSV is normal. CFV is compressible, spontaneous, phasic, competent and demonstrates normal augmentation. FV is compressible, spontaneous, phasic, competent and demonstrates normal augmentation. POP V is compressible, spontaneous, phasic, competent and demonstrates normal augmentation. T/P Trunk is compressible. PTV is compressible. RT PerV is compressible. Procedure Exam performed in department. This is a venous duplex using B-mode, color flow and spectral Doppler. A preliminary report was called and/or faxed to [facility]. Interpretation Summary There is no evidence of right lower extremity deep vein thrombosis. Right great saphenous vein appears patent and compressible segmentally. Ordering Physician: Lori Link Referring Physician: Anna De La Rosa Performed By: Génesis Max RVT and Student
== END ==
PROVIDERS: PCP Internal Medicine; Referring Provider Orthopaedic Surgery; Visit Provider Orthopaedic Surgery
DX: M79.661 Pain in right lower leg (principal); Z47.89 Encounter for other orthopedic aftercare
CPT/HCPCS: 93971; 97110

== ENCOUNTER 2020-05-13 20:53 | Emergency (ER) | payer MEDICAID, SELFPAY ==
[2020-05-13 20:55] VITALS: BP 177/95; PULSE 94; RESP 18; TEMP 36.1; O2SAT 96; BMI 34.9
--- NOTE | 2020-05-13 21:31 | ED.VIS.GEN ---
History of Present Illness Chief Complaint: Laceration Informant: Patient Narrative: 24-year-old female presents with avulsion injury to the tip of her left index finger. She states she is having trouble getting the bleeding controlled. Patient feels otherwise well. She did try compression at home but states that every time she removed it it would start bleeding again. Prior similar symptoms: Yes - Past Medical History (1) Essential hypertension Status: Chronic (2) IBS (irritable bowel syndrome) Status: Chronic (3) Migraines Status: Chronic Past Medical History - Allergies and Home Meds Allergies/Adverse Reactions: Allergies No Known Allergies Allergy (Verified 05/13/20 20:54) Primary Care Physician: Anna De La Rosa MD [Primary Care Provider] - Prior records reviewed: Yes Past Medical History: - - Reviewed in problem list Surgical History: - Lives: Alone Smoking Status: Never smoker Alcohol: None Drugs: None Review of Systems General: Denies: Chills, Fever, Sweats Eyes: Denies: Visual changes - bilaterally, Diplopia ENT: Denies: Rhinorrhea, Sore throat Cardiovascular: Denies: Chest pain, Palpitations Respiratory: Denies: Dyspnea, Cough, Dyspnea on exertion Gastrointestinal: Denies: Abdominal pain, Nausea, Vomiting, Diarrhea, Melena, Hematochezia Genitourinary: Denies: Dysuria, Hematuria, Frequency Musculoskeletal: Denies: Back pain, Extremity Pain Skin: Reports: Wounds - Small avulsion tip of left index finger Neurological: Denies: Headache, Weakness, Numbness Psych: Denies: Depression, Anxiety, Suicidal thoughts, Suicidal ideations, -, - Physical Exam Vital Signs/Narrative: Vital Signs Temp Pulse Resp BP Pulse Ox 05/13/20 20:55 97 F L 94 18 177/95 H 96 Inital Vital Signs reviewed: Yes General: Well nourished, Well developed Head: Normocephalic, Atraumatic Eyes: Perrl, EOMI ENT: Moist mucous membranes Cardiovascular: Regular rate, Regular rhythm Respiratory: No distress, CTA bilaterally Extremities: Nontender, Tenderness - Is to palpation at the distal aspect of the left index finger Skin: Normal color, No rash, - - Small avulsion injury to the tip of the left index finger with slight bleeding. Neurological: Alert, Oriented x3 Psychological: Normal affect, Normal Mood Diagnostic/Tx/Re-eval - Medical Decision Making Patient has avulsion type injury to the left index finger. This is not amenable to suture. After wound is cleaned the Gelfoam was applied to the tip of the left index finger and a dressing was applied over this. Patient monitored in the ED with no bleeding through the dressing. Patient will keep this dressing in place for the next 2 days and then remove it gently. She is given instructions on wound care. She can return precautions. Impression: 1. Skin avulsion left index finger ED Disposition - Plan for ED Patient: Disposition: Home or Assisted Living Instructions: ED Skin Avulsion Referrals: Anna De La Rosa MD [Primary Care Provider] -
[2020-05-13] MEDS: Ibuprofen 600 MG Tablet PO (21:39)
== END 2020-05-13 21:53 | disposition home or self-care (01) ==
LOC: ED 21:49
PROVIDERS: Emergency Provider Student in an Organized Health Care Education/Training Program; PCP Internal Medicine
DX: S61.201A Unspecified open wound of left index finger without damage to nail, initial encounter (principal); I10 Essential (primary) hypertension; K58.9 Irritable bowel syndrome, unspecified; X58.XXXA Exposure to other specified factors, initial encounter; Y93.9 Activity, unspecified; Y92.89 Other specified places as the place of occurrence of the external cause; Y99.9 Unspecified external cause status
CPT/HCPCS: 99283

== ENCOUNTER 2020-06-13 12:30 | Outpatient (RCR) | payer MEDICAID, SELFPAY ==
[2020-03-06 21:34] VITALS: BMI 39.7
--- NOTE | 2020-03-22 12:49 | HP.PTEVAL_ITS ---
Patient's Visit Information JESSY LOPEZ is a 24 year old F referred to Physical Therapy by Dr. Lori Link DO with a diagnosis of R knee chondroplasty, synovectomy 03-02-2020. Date of Evaluation: 03/22/20 Physical Therapist: KEITH Wakler - Visit Plan Frequency: 2x /Week Duration: 2 Months Plan: PT is not walking well without her crutches so I placed the pt back on crutches with heel to toe gait pattern and then we can decrease down to 1 crutch soon and then none with goot mechanics. 2X/ week with HEP for R knee AROM, Strength of knee and hip, gait training, functional activieis, stairs with HEP and modalities as needed. - Subjective Pt had fluid on her knee and issues and she saw Dr Romero and she did surgery. In surgery they found lose cartilage and thick band by her meniscus. It has been 2.5 weeks since surgery and still having pain, swelling, and decreased motion. wants PT to help it. Pt has a child to carry in to therapy and she is like 40#. She is currently not working. She is hoping to get into [employer] and be on her feet when she is better. Steps; she can do down easier than go up them and one foot at a time with a railing. She is having trouble walking, geting in and out of the bathtub. She can walk a block or so but it would be slow and painful. Her knee feels very stiff. Her pain wakes her up at night. Sh is on pain meds.... every 8 hours and IBprof inbetween if needed. She has been doing no exercises but ankle pumps, elevation and ice. said to wear bryan bandage to help the swelling. She still has some open wounds per subj. - Pain R knee pain Pain Intensity (Out of 10): 3 Pain Intensity Range: 8 - Objective Gait: Pt walks with decreased stance time on the R LE and decreased WB on the R... more just placing her toe on the ground to advance her L LE. Not a normal stride. LE MMT: R hip flexion 2-/5, L hip flex 4/5, R knee ext 3-/5, L knee ext 4/5, R hip abd 4-/5 and L hip abd 4/5. R knee AROM: -7 degrees from full extension, 70 degrees knee flexion (after warming up 81 degrees). L Knee AROM: 0 degress and 125 degrees. SLR: Unable to do SLR unless AA and that is a struggle. R knee girth 42.3 tib tub, 42.5, 49. L knee girth: 43, 47.1, 51.2 - Goals Goal 1:: I HEP Goal Time Frame: 4-6 Weeks Goal 2:: Be able to walk without an antalgic gait with proper gait mechanics Goal Time Frame: 4-6 Weeks Goal 3:: Be able to I SLR 3 X 10 without extensor lag Goal Time Frame: 4-6 Weeks Goal 4:: Increase R knee AROM 0-120 degrees Goal Time Frame: 4-6 Weeks Goal 5:: Decrease pain of R knee to 1/10 with ADL's - Rehabilitation Potential Rehabilitation Potential: Excellent - Anticipated Interventions Patient/Client Instruction: Educate patient on: Condition, Plan of Care For the Purpose of:: To decrease pain, To decrease swelling/inflammation, To increase ROM, To improve nutrient delivery to tissue, To improve muscle performance and motor function, To improve ability to perform ADL's, To increase tolerance to activity/condition/position, To improve performance and independence with ADL's, To decrease level of supervision to perform tasks, To improve ability of physical actions for home/community/work/leisure, To improve gait and locomotor functions, To improve health of tissue, To decrease soft tissue restriction, To increase flexibility/ROM, To improve balance, To improve safety with gait Therapeutic Exercise to Include: Strength training, Balance training, Postural training, Flexibilty training, Gait and locomotor training, Passive ROM, Active ROM For the Purpose of:: To decrease pain, To decrease swelling/inflammation, To increase ROM, To improve nutrient delivery to tissue, To increase oxygenation perfusion, To improve muscle performance and motor function, To improve ability to perform ADL's, To increase tolerance to activity/condition/position, To improve performance and independence with ADL's, To decrease level of supervisi on to perform tasks, To improve ability of physical actions for home/community/work/leisure, To improve gait and locomotor functions, To improve health of tissue, To decrease soft tissue restriction, To increase flexibility/ROM, To improve balance, To improve safety with gait Functional Training to Include: Gait training For the Purpose of:: To improve gait and locomotor functions, To improve safety with gait Manual Therapy Techniques to Include: Passive ROM For the Purpose of:: To increase ROM, To improve nutrient delivery to tissue IF ES: Yes Cryotherapy (ice pack, ice massage): Yes For the Purpose of:: To decrease pain, To decrease swelling/inflammation, To increase ROM, To improve nutrient delivery to tissue Thank you for the opportunity to evaluate your patient. For Medicare and Medicare HMO plans, please review the plan of care and approve it. It will need to be FAXED BACK to us at [phone] for Medicare purposes. For Medicare only, by signing this I certify the plan of care. Please let me know if there are questions or concerns regarding this plan of care. Physician Signature: Date:
--- NOTE | 2020-04-18 12:03 | HP.PTREVAL ---
Dr. Lori Link, DO, It has been my pleasure to treat JESSY LOPEZ over the last 9 visits for R knee chondroplasty, synovectomy 03-02-2020. Please see the progress note below for an update on the physical therapy plan of care! Subjective: Dr said it looks good and minimal swelling. She will see me again in 6 weeks. Pt reports that long distances are a little hard without the one crutch but she is glad that it is gone. Objective/Function: R knee AROM -2 degrees from full extenson and 112 degrees R knee flexion. Gait: walks with slight antalgic gait on the R with no AD... much improved. Pt is not able to do 3 X 10 SLR withot some shaking and freq rest breaks to complete... Plan Plan: Work on SLR endurance. 2X/ week for an additional 4 weeks with HEP for R knee AROM, Strength of knee and hip, gait training, functional activieis, stairs with HEP and modalities as needed. Goals Goal 1:: I HEP Goal Time Frame: 4-6 Weeks Goal 2:: Be able to walk without an antalgic gait with proper gait mechanics Goal Time Frame: 4-6 Weeks Goal Progress: Progressing Goal 3:: Be able to I SLR 3 X 10 without extensor lag Goal Time Frame: 4-6 Weeks Goal 4:: Increase R knee AROM 0-120 degrees Goal Time Frame: 4-6 Weeks Goal 5:: Decrease pain of R knee to 1/10 with ADL's Goal Progress: Progressing Anticipated Interventions Patient/Client Instruction: Educate patient on: Condition, Plan of Care For the Purpose of:: To decrease pain, To decrease swelling/inflammation, To increase ROM, To improve nutrient delivery to tissue, To improve muscle performance and motor function, To improve ability to perform ADL's, To increase tolerance to activity/condition/position, To improve performance and independence with ADL's, To decrease level of supervision to perform tasks, To improve ability of physical actions for home/community/work/leisure, To improve gait and locomotor functions, To improve health of tissue, To decrease soft tissue restriction, To increase flexibility/ROM, To improve balance, To improve safety with gait Therapeutic Exercise to Include: Strength training, Balance training, Postural training, Flexibilty training, Gait and locomotor training, Passive ROM, Active ROM For the Purpose of:: To decrease pain, To decrease swelling/inflammation, To increase ROM, To improve nutrient delivery to tissue, To increase oxygenation perfusion, To improve muscle performance and motor function, To improve ability to perform ADL's, To increase tolerance to activity/condition/position, To improve performance and independence with ADL's, To decrease level of supervision to perform tasks, To improve ability of physical actions for home/community/work/leisure, To improve gait and locomotor functions, To improve health of tissue, To decrease soft tissue restriction, To increase flexibility/ROM, To improve balance, To improve safety with gait Functional Training to Include: Gait training For the Purpose of:: To improve gait and locomotor functions, To improve safety with gait Manual Therapy Techniques to Include: Passive ROM For the Purpose of:: To increase ROM, To improve nutrient delivery to tissue IF ES: Yes Cryotherapy (ice pack, ice massage): Yes For the Purpose of:: To decrease pain, To decrease swelling/inflammation, To increase ROM, To improve nutrient delivery to tissue Please do not hesitate to contact me at [phone] by phone or if you have questions or concerns regarding this new plan of care! Sincerely, Hazel Murphy, MPT
--- NOTE | 2020-06-13 13:04 | HP.PTDCSUM ---
It has been my pleasure to treat JESSY LOPEZ referred by Dr. Lori Link DO, with the diagnosis of R knee chondroplasty, synovectomy 03-02-2020 for a total of 27 visit(s). Discharge Date: 06/13/20 Please see the following information for a summary of their discharge status. Subjective: Pt still has pain with squatting and up and down the stairs. And she still has pain with light jogging. She is not sure if it is because of the surgery or what they are sending her to the rhumatologist for. Pt sees the rhumatoologist on Jul 17. See is doing the SLR, Clam shells with green band, step ups on her own stairs at home. She feesl that she is stronger but pain still there with bending. The TENS helped with her pain last time. R knee pain Pain Intensity (Out of 10): 0 % Improvement: 99 Objective/Function: R knee AROM: 0-127 degrees R knee flexion. Stairs: Goal 1:: I HEP Goal Progress: Goal Met Goal 2:: Be able to walk without an antalgic gait with proper gait mechanics Goal Progress: Goal Met Goal 3:: Be able to I SLR 3 X 20 without extensor lag Goal Progress: Goal Met Goal 4:: Increase R knee AROM 0-120 degrees Goal Progress: Goal Met Goal 5:: Decrease pain of R knee to 1/10 with ADL's Goal Progress: Progressing Plan: DC PT to HEP for now Discharge Comments: DC PT to Home exercises at this time and welcome to come back after results of Rhumatologist appointment and if she feel that she is not getting better. If there are questions or concerns regarding this patient's physical therapy, please feel free to call me at [phone]. Thank you for the referral of this patient. Sincerely, Hazel Murphy, MPT
== END 2020-06-13 19:00 | disposition home or self-care (01) ==
LOC: PT 12:30
PROVIDERS: PCP Internal Medicine; Referring Provider Orthopaedic Surgery; Visit Provider Orthopaedic Surgery
DX: Z47.89 Encounter for other orthopedic aftercare (principal)
CPT/HCPCS: 97014; 97110; 97116; 97161; 97530; G0283

== ENCOUNTER → 2020-07-02 20:06 | Outpatient (CLI) | payer MEDICAID, SELFPAY ==
[2020-06-12 14:17] VITALS: BMI 36.5
== END ==
PROVIDERS: PCP Internal Medicine; Visit Provider Internal Medicine
DX: G47.10 Hypersomnia, unspecified (principal)
CPT/HCPCS: 95810

== ENCOUNTER → 2020-07-20 08:26 | Outpatient (CLI) | payer MEDICAID, SELFPAY ==
[2020-07-20 08:05] VITALS: BMI 36.9
[2020-07-20 13:33] LABS: Thyroid Stim Hormone (TSH) 4.06 uIU/mL (0.358-3.74)
[2020-10-12 11:49] LABS: T4 Free Direct 1.21 ng/dL (0.76-1.46); Thyroid Stim Hormone (TSH) 1.02 uIU/mL (0.358-3.74)
== END ==
PROVIDERS: Physician Assistant; PCP Internal Medicine; Referring Provider Nurse Practitioner Family; Visit Provider Nurse Practitioner Family
DX: E89.0 Postprocedural hypothyroidism (principal)
CPT/HCPCS: 36415; 84439; 84443

== ENCOUNTER → 2020-10-12 10:27 | Outpatient (CLI) | payer MEDICAID, SELFPAY ==
[2020-10-11 09:15] VITALS: BMI 35.4
== END ==
PROVIDERS: PCP Internal Medicine; Visit Provider Internal Medicine
DX: Z00.00 Encounter for general adult medical examination without abnormal findings (principal)

== ENCOUNTER → 2020-11-01 10:33 | Outpatient (CLI) | payer MEDICAID, SELFPAY ==
[2020-10-19 09:03] VITALS: BMI 33.3
--- NOTE | 2020-11-01 10:34 | RAD_ITS ---
STUDY: X-RAY - LUMBAR SPINE REASON FOR EXAM: Female, 25 years old. Back pain. TECHNIQUE: 3 view(s) of the lumbar spine were obtained. COMPARISON: None FINDINGS: Normal lumbar lordosis. There is no substantial scoliosis. There is a normal alignment of the vertebrae. Normal vertebral bodies and endplates. Normal disc space heights. The soft tissue structures are unremarkable. RAD/Lumbar Spine 2 or 3 Views IMPRESSION: No abnormality of the lumbar spine. Electronically Signed: Jason Calzada MD at 9:21 EDT , Service support ,
--- NOTE | 2020-11-01 10:34 | RAD_ITS ---
STUDY: X-RAY - THORACIC SPINE REASON FOR EXAM: Female, 25 years old. Back pain after fall. TECHNIQUE: 3 view(s) of the thoracic spine were obtained. COMPARISON: None. FINDINGS: Normal kyphosis of the thoracic spine. There is no substantial scoliosis. Normal thoracic vertebrae and endplates. Normal disc space heights. The soft tissue structures are unremarkable. RAD/Thoracic Spine 3 Views IMPRESSION: No abnormality of the thoracic spine. Electronically Signed: Jason Calzada MD at 9:24 EDT , Service support ,
== END ==
PROVIDERS: PCP Internal Medicine; Referring Provider Internal Medicine; Visit Provider Internal Medicine
DX: M54.5 Low back pain (principal)
CPT/HCPCS: 72072; 72100

== ENCOUNTER 2020-11-10 19:01 | Emergency (ER) | payer MEDICAID, SELFPAY ==
[2020-10-19 09:03] VITALS: BMI 33.3
[2020-11-10 19:02] VITALS: BP 139/82; PULSE 102; RESP 16; TEMP 36.7; O2SAT 96; BMI 34.4
--- NOTE | 2020-11-10 19:43 | EDS_ITS ---
HPI History of Present Illness Chief Complaint: Ear Problem Informant: patient Onset/Context/Timing Onset: Today Current Severity: Mild Maximum Severity: Mild Narrative Narrative: Patient presents secondary to having her ears plugged. She states she went swimming earlier today and felt she had water in her ears. She tried to irrigate them out with peroxide but now states she cannot hear anything. She does not have significant pain. No recent URI symptoms. [facility] Medical History Abdominal pain Acute sinusitis, unspecified Anxiety Asthma Atypical cells of the thyroid isthmus Back pain Back pain Contusion of right chest wall Diarrhea Difficulty balancing Dizziness Essential hypertension Fatigue Hemorrhoids Hiatal hernia Hiatal hernia with GERD IBS (irritable bowel syndrome) Low back pain Migraines Postsurgical hypothyroidism Sinusitis SOB (shortness of breath) Thoracic myofascial strain Thyroid disease Thyroid mass Home Medications levothyroxine 137 mcg tablet 137 mcg PO DAILY #70 tab 11/06/20 [Rx Last Taken Unknown] Allergy/AdvReac Type Severity Reaction Status Date / Time No Known Allergies Allergy Verified 11/10/20 19:01 Family History Grandmother Myocardial infarction Thyroid disorder Skin cancer Grandfather Lung cancer Father Thyroid disorder Mother Kidney disease Brother Diabetes Surgical History H/O right knee surgery History of colonoscopy History of esophagogastroduodenoscopy (EGD) Hx of thyroidectomy Status post laser cataract surgery of left eye Social History Smoking Status: Never smoker alcohol intake: never substance use type: does not use what type of physical activity do you participate in: walking ROS ROS ED Constitutional Constitutional ED: Denies chills or fever(s) Eyes Eyes: Denies change in vision ENT ENT ED: Reports other Details: Cannot hear out of the ears ; Denies sore throat Cardiovascular Cardiovascular: Denies chest pain Respiratory/Chest Respiratory/Chest: Denies cough or dyspnea Gastrointestinal Gastrointestinal: Denies abdominal pain, diarrhea, nausea or vomiting Genitourinary Genitourinary ED: Denies dysuria Musculoskeletal Musculoskeletal: Denies back pain Integumentary Denies rash Neurologic Neurologic: Denies headache(s) or weakness Psychiatric Psychiatric: Denies anxiety or depression Endocrine Endocrinology: Denies polydipsia or polyuria Allergic/Immunologic Allergic/Immunologic ED: Denies urticaria EXAM Physical Exam Const Vital Signs: 11/10/20 19:02 Temperature 98.1 F Temperature Source Temporal Pulse Rate 102 H Respiratory Rate 16 Blood Pressure 139/82 H Blood Pressure Mean 101 Pulse Ox 96 Oxygen Delivery Method Room Air Positive well nourished and well developed General Appearance ED: well developed HEENT HEENT Narrative: Cerumen deep in the bilateral ear canals. Eyes PERRL and EOMs intact bilaterally Neck supple Resp normal respiratory effort and clear to auscultation bilaterally Cardio regular rate and regular rhythm GI normal to inspection, nondistended, normoactive bowel sounds and non-tender Palpation: soft Neuro oriented x3 Sensorium / Orientation: alert Psych mental status grossly normal Skin no rashes or lesions noted MDM MDM MDM Narrative Medical decision making narrative: Debrox was placed in the ears and ears were irrigated. Treatment and Re-Evaluation Comments:: On repeat evaluation patient states her symptoms are resolved. I did reexamine her ears and she still does have a small amount of cerumen. She was encouraged to allow the warm shower water to run under her ear and lightly massage the tissue just in front of her ear. She will follow up with her PCP if she has continued symptoms. Discharge Plan Triage Chief Complaint: Ear Problem ED Provider: Sarina Cantrell Dx/Rx/DC Orders Clinical Impression: Impacted cerumen Instructions: ED Cerumen Impaction Treated Prescriptions: No Action levothyroxine 137 mcg tablet 137 mcg PO DAILY Qty: 70 RF: 0 Primary Care Provider: Anna De La Rosa Referrals: Anna De La Rosa MD [Primary Care Provider] - As Needed Disposition Disposition: Home, self care Discharge Date/Time: 11/10/20 20:34
[2020-11-10] MEDS: Carbamide Peroxide 15 ML Bottle 5 DRP OTIC (20:27)
== END 2020-11-10 20:34 | disposition home or self-care (01) ==
PROVIDERS: Emergency Provider Emergency Medicine; PCP Internal Medicine
DX: H61.23 Impacted cerumen, bilateral (principal); I10 Essential (primary) hypertension; J45.909 Unspecified asthma, uncomplicated; E89.0 Postprocedural hypothyroidism
CPT/HCPCS: 99283

== ENCOUNTER → 2021-01-11 10:04 | Outpatient (CLI) | payer MEDICAID, SELFPAY ==
[2021-01-11 09:34] VITALS: BMI 33.0
[2021-01-11 12:39] LABS: Vitamin D,25 Hydroxy 37.8 ng/mL
[2021-01-11 12:58] LABS: ALB/GLOB Ratio 1.1 RATIO (0.9-2.4); AST(SGOT) 18 U/L (15-37); Alanine Aminotransfer ALT/SGPT 49 U/L (13-56); Albumin, Serum 4.1 g/dL (3.2-5.0); Alkaline Phosphatase 81 U/L (45-117); Anion Gap 5 (5-15); BUN 12 mg/dL (7-18); BUN/Creat Ratio 16.9 RATIO (10-20); Calcium,Total 9.6 mg/dL (8.5-10.1); Chloride 107 mmol/L (98-107); Creatinine, Serum 0.71 mg/dL (0.55-1.02); EST Glomerular Filtration Rate 108 mL/min (>60); Est Glom Filt Rate - Afr Amer 131 mL/min (>60); Globulin 3.6 g/dL (2.2-4.2); Glucose 91 mg/dL (74-106); Protein, Total 7.7 g/dL (6.4-8.2); Sodium Level 137 mmol/L (136-145); Thyroid Stim Hormone (TSH) 1.34 uIU/mL (0.358-3.74)
== END ==
PROVIDERS: PCP Internal Medicine; Referring Provider Internal Medicine; Visit Provider Internal Medicine
DX: E55.9 Vitamin D deficiency, unspecified (principal); E89.0 Postprocedural hypothyroidism
CPT/HCPCS: 36415; 80053; 82306; 84443

== ENCOUNTER 2021-04-03 21:42 | Emergency (ER) | payer MEDICAID, SELFPAY ==
[2021-04-03 21:43] VITALS: BP 142/97; PULSE 107; RESP 16; TEMP 36.5; O2SAT 100; BMI 30.4
[2021-04-03 21:45] VITALS: BP 142/97; PULSE 107; RESP 16; TEMP 36.5; O2SAT 100
[2021-04-03] MEDS: dexAMETHasone 4 MG Tablet 12 MG PO (23:02)
--- NOTE | 2021-04-03 23:18 | EDS_ITS ---
HPI History of Present Illness Chief Complaint: Sore Throat Narrative Narrative: 3-day history sore throat pain with swallowing. No fevers. Seen in urgent care 2 days ago rapid Covid negative states had a throat swab none known results. Yesterday lost taste. Nonvaccinated for Covid. No myalgias vomiting diarrhea. Mild cough. No other complaints. [facility] Medical History Abdominal pain Acute maxillary sinusitis, unspecified Acute sinusitis, unspecified Anxiety Asthma Atypical cells of the thyroid isthmus Back pain Back pain Contusion of right chest wall Diarrhea Difficulty balancing Dizziness Essential hypertension Fatigue Hemorrhoids Hiatal hernia Hiatal hernia with GERD IBS (irritable bowel syndrome) Low back pain Migraines Pain of right thumb Postsurgical hypothyroidism Sinusitis SOB (shortness of breath) Suspected COVID-19 virus infection Thoracic myofascial strain Thyroid disease Thyroid mass URI (upper respiratory infection) Vitamin D deficiency Home Medications ergocalciferol (vitamin D2) 1,250 mcg (50,000 unit) capsule cap PO 01/11/21 [History Last Taken Unknown] levothyroxine 137 mcg tablet 137 mcg PO DAILY #90 tab 01/24/21 [Rx Last Taken Unknown] guaifenesin 1,200 mg tablet, extended release 12 hr 1,200 mg PO Q12H PRN #60 tab 04/03/21 [Rx Last Taken Unknown] Allergy/AdvReac Type Severity Reaction Status Date / Time No Known Allergies Allergy Verified 01/11/21 09:28 Family History Grandmother Myocardial infarction Thyroid disorder Skin cancer Grandfather Lung cancer Father Thyroid disorder Mother Kidney disease Brother Diabetes Surgical History H/O right knee surgery History of colonoscopy History of esophagogastroduodenoscopy (EGD) Hx of thyroidectomy Status post laser cataract surgery of left eye Social History Smoking Status: Never smoker alcohol intake: never substance use type: does not use what type of physical activity do you participate in: walking ROS ROS ED Constitutional Constitutional ED: Denies chills, fever(s) or sweats Eyes Eyes: Denies change in vision ENT ENT ED: Reports sore throat; Denies dysphagia Cardiovascular Cardiovascular: Denies chest pain, leg edema, palpitations or racing heartbeat Respiratory/Chest Respiratory/Chest: Reports cough; Denies dyspnea or dyspnea on exertion Gastrointestinal Gastrointestinal: Denies abdominal pain, diarrhea, nausea or vomiting Genitourinary Genitourinary ED: Denies dysuria, hematuria or urinary frequency Musculoskeletal Musculoskeletal: Denies back pain, extremity pain or neck pain Integumentary Denies rash or wounds Neurologic Neurologic: Denies headache(s), paresthesias or weakness EXAM Physical Exam Const Vital Signs: 04/03/21 21:43 04/03/21 21:45 04/03/21 22:30 Temperature 97.7 F L 97.7 F L Temperature Source Temporal Temporal Pulse Rate 107 H 107 H Respiratory Rate 16 16 Respiratory Effort Normal Non-Labored Respiratory Pattern Normal Blood Pressure 142/97 H 142/97 H Blood Pressure Mean 112 112 Pulse Ox 100 100 Oxygen Delivery Method Room Air Room Air Positive well nourished and well developed General Appearance ED: well developed and NAD HEENT Reports TM's clear and moist mucous membranes HEENT Narrative: Nonvisualized tonsils minimal erythema no exudates. No trismus. Uvula midline. normocephalic and atraumatic Tympanic Membrane ED: Yes TM's clear Eyes PERRL, EOMs intact bilaterally and conjunctivae normal General Eye ED: Yes normal appearance of both eyes Neck no lymphadenopathy and supple General: Negative for tenderness Chest Wall Chest: Negative for tenderness Resp normal respiratory effort and normal air movement Effort and Inspection: symmetric chest movement; Negative for respiratory distress Cardio regular rate, regular rhythm and no murmurs Peripheral Pulses: pulses 2+ throughout GI normal to inspection, nondistended, normoactive bowel sounds and non-tender Palpation: Negative for guarding or rebound tenderness present Back/Spine no CVA tenderness and no thoracic nor lumbar tenderness Extremity normal to inspection General Extremety ED: Negative for edema or tenderness General Extremity: Negative for edema Neuro oriented x3 and no sensory deficits noted Sensorium / Orientation: awake and alert Skin no rashes or lesions noted and no wounds MDM MDM MDM Narrative Medical decision making narrative: Patient nontoxic. Afebrile pulse ox 100% room air. Rapid strep Covid testing negative. Patient lost taste yesterday day 3 of symptoms. Suspect Covid infection. PCR sent out for further evaluation. She was given a dose of Decadron for her pharyngitis symptoms. Discussed monitoring for progression of symptoms. 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 Return precautions discussed. All questions were answered. Discharge Plan Triage Chief Complaint: Sore Throat ED Provider: Jaden Rodriguez Dx/Rx/DC Orders Clinical Impression: Pharyngitis, Suspected 2019-nCoV infection, Loss of taste Instructions: Coronavirus Disease 2019 (COVID-19): Overview, ED Pharyngitis, Viral Prescriptions: No Action ergocalciferol (vitamin D2) 1,250 mcg (50,000 unit) capsule PO RF: 0 Mucinex 1,200 mg tablet extended release 12hr 1,200 mg PO Q12H PRN (Reason: congestion) Qty: 60 RF: 0 levothyroxine 137 mcg tablet 137 mcg PO DAILY Qty: 90 RF: 1 Primary Care Provider: Anna De La Rosa Referrals: Anna De La Rosa MD [Primary Care Provider] - 1 Week Activity Restrictions/Additional Instructions: Strep test negative rapid Covid test negative. PCR Covid test pending. Continue isolation at this time. 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 Continue oral hydration. Disposition Disposition: Home, Self Care Discharge Date/Time: 04/03/21 23:28
== END 2021-04-03 23:28 | disposition home or self-care (01) ==
PROVIDERS: Emergency Provider Emergency Medicine; PCP Internal Medicine
DX: J02.9 Acute pharyngitis, unspecified (principal); R43.9 Unspecified disturbances of smell and taste; I10 Essential (primary) hypertension; J45.909 Unspecified asthma, uncomplicated; K21.9 Gastro-esophageal reflux disease without esophagitis
CPT/HCPCS: 87426; 87635; 87880; 99283; U0005; U0003

== ENCOUNTER 2021-07-10 09:00 | Outpatient (CLI) | payer MEDICAID, SELFPAY ==
[2021-07-10 12:23] LABS: Absolute Lymphocyte Count 2.24 X10^3/uL (0.83-4.51); Absolute Neutrophil Count 4.7 X10^3/uL (2.0-7.7); Basophil# 0.03 X10^3/uL; Basophil% 0.4 % (0-1); Hematocrit 40.1 % (37-47); Lymphocyte # 2.24 X10^3/ul (0.83-4.51); Lymphocyte % 30.3 % (19-41); Mean Corp Hgb Conc 32.4 g/dL (32-36); Mean Corpuscular Hgb 27.3 pg (27.0-32.0); Mean Corpuscular Volume 84.2 fL (81-99); Mean Platelet Vol. 9.6 fl (6.2-12.0); Monocyte# 0.41 X10^3/uL; Monocyte% 5.5 % (0-10); NRBC Flagged by Analyzer 0 % (0-5); Neutrophil # 4.65 X10^3/uL (2.7-7.7); Neutrophil % 62.9 % (47-70); Platelet Count 284 K/mm3 (150-450); RBC Distribution Width CV 12.5 % (11.6-14.6); RBC Distribution Width SD 38.3 fl (35.1-43.9); Red Blood Count 4.76 M/mm3 (4.2-5.4); White Blood Count 7.4 K/mm3 (4.4-11.0)
[2021-07-10 13:04] LABS: AST(SGOT) 9 U/L (15-37); Alanine Aminotransfer ALT/SGPT 22 U/L (13-56); Albumin, Serum 3.8 g/dL (3.2-5.0); Alkaline Phosphatase 61 U/L (45-117); Anion Gap 6 (5-15); BUN 12 mg/dL (7-18); BUN/Creat Ratio 17.8 RATIO (10-20); Calcium,Total 9.4 mg/dL (8.5-10.1); Chloride 107 mmol/L (98-107); Cholesterol 194 mg/dL (200); Creatinine, Serum 0.68 mg/dL (0.55-1.02); EST Glomerular Filtration Rate 114 mL/min (>60); Est Glom Filt Rate - Afr Amer 138 mL/min (>60); Globulin 3.7 g/dL (2.2-4.2); Glucose 93 mg/dL (74-106); High Density Lipoprotein 49 mg/dL; Potassium 3.9 mmol/L (3.5-5.1); Protein, Total 7.5 g/dL (6.4-8.2); Sodium Level 138 mmol/L (136-145); Thyroid Stim Hormone (TSH) 2.36 uIU/mL (0.358-3.74); Triglycerides 164 mg/dL; Very Low Density Lipoprotein 33 mg/dL (5-40)
== END 2021-07-10 23:59 | disposition home or self-care (01) ==
LOC: BIMLAB 09:00
PROVIDERS: PCP Internal Medicine; Referring Provider Internal Medicine; Visit Provider Internal Medicine
DX: E03.9 Hypothyroidism, unspecified (principal); I10 Essential (primary) hypertension
CPT/HCPCS: 36415; 80053; 80061; 84443; 85025

== ENCOUNTER → 2022-01-16 | Outpatient (CLI) | payer MEDICAID, SELFPAY ==
[2022-01-16 15:17] LABS: Absolute Lymphocyte Count 3.16 X10^3/uL (0.83-4.51); Absolute Neutrophil Count 4.3 X10^3/uL (2.0-7.7); Basophil# 0.05 X10^3/uL; Basophil% 0.6 % (0-1); Eosinophil# 0.18 X10^3/uL; Eosinophils% 2.2 % (0-5); Hematocrit 40.1 % (37-47); Hemoglobin 13.2 g/dL (12.0-15.0); Lymphocyte # 3.16 X10^3/ul (0.83-4.51); Lymphocyte % 38.8 % (19-41); Mean Corp Hgb Conc 32.9 g/dL (32-36); Mean Corpuscular Hgb 27.9 pg (27.0-32.0); Mean Corpuscular Volume 84.8 fL (81-99); Mean Platelet Vol. 9.6 fl (6.2-12.0); Monocyte% 4.9 % (0-10); NRBC Flagged by Analyzer 0 % (0-5); Neutrophil # 4.33 X10^3/uL (2.7-7.7); Neutrophil % 53.1 % (47-70); Platelet Count 277 K/mm3 (150-450); Red Blood Count 4.73 M/mm3 (4.2-5.4); White Blood Count 8.2 K/mm3 (4.4-11.0)
[2022-01-16 16:10] LABS: ALB/GLOB Ratio 1.1 RATIO (0.9-2.4); AST(SGOT) 19 U/L (15-37); Alanine Aminotransfer ALT/SGPT 38 U/L (13-56); Albumin, Serum 3.8 g/dL (3.2-5.0); Alkaline Phosphatase 57 U/L (45-117); Anion Gap 8 (5-15); BUN 13 mg/dL (7-18); BUN/Creat Ratio 16.3 RATIO (10-20); Calcium,Total 8.9 mg/dL (8.5-10.1); Chloride 107 mmol/L (98-107); EST Glomerular Filtration Rate 94 mL/min (>60); Est Glom Filt Rate - Afr Amer 114 mL/min (>60); Globulin 3.5 g/dL (2.2-4.2); Glucose 103 mg/dL (74-106); Potassium 3.4 mmol/L (3.5-5.1); Protein, Total 7.3 g/dL (6.4-8.2); Sodium Level 139 mmol/L (136-145)
== END | disposition home or self-care (01) ==
LOC: BIMLAB 12:59
PROVIDERS: PCP Internal Medicine; Referring Provider Internal Medicine; Visit Provider Internal Medicine
DX: E03.9 Hypothyroidism, unspecified (principal)
CPT/HCPCS: 36415; 80053; 84443; 85025

== ENCOUNTER 2022-02-02 17:45 | Emergency (ER) | payer MEDICAID, SELFPAY ==
[2022-02-02 17:46] VITALS: BP 151/110; PULSE 105; RESP 17; TEMP 36.8; O2SAT 99; BMI 33.7
--- NOTE | 2022-02-02 17:55 | CT_ITS ---
STUDY: CT ABDOMEN AND PELVIS WITH CONTRAST REASON FOR EXAM: Female, 26 years old. abdominal pain RADIATION DOSAGE (If Supplied By Facility): CTDIvol = ( 16.33 ) mGy, DLP = ( 1243.71 ) mGycm TECHNIQUE: Transaxial images were obtained from the dome of the diaphragm to the symphysis pubis without oral contrast. IV-100 ML ISOVUE 370 was administered. Sagittal and coronal images were reconstructed. Individualized dose optimization techniques were used for this CT. COMPARISON: 10/17/2018 FINDINGS: The visualized lung bases are unremarkable. The visualized portions of the heart are within normal limits. Normal liver. The gallbladder is contracted. Normal spleen. Normal pancreas. Normal bilateral adrenal glands. Normal right kidney. Normal left kidney. Normal visualized stomach. Multiple small lymph nodes in the small bowel mesentery suggestive of a gastroenteritis or mesenteric adenitis. Normal colon. The appendix is visualized and appears normal. Normal abdominal aorta. Normal inferior vena cava. Normal retroperitoneum. Normal urinary bladder. Normal abdominal wall. Normal osseous structures. CT/Abdomen/Pelvis W IV Cont ONLY IMPRESSION: Suspect gastroenteritis and/or mesenteric adenitis per Electronically Signed: Niles Weaver MD at 19:32 EDT ,
--- NOTE | 2022-02-02 17:56 | EDS_ITS ---
HPI History of Present Illness Chief Complaint: Abd Pain Informant: patient Narrative Narrative: 6-year-old female states that she began to have right upper abdominal pain [place]. It went away but came back today worse. She notes nausea but no vomiting. She notes that it hurts worse with movement. No fever. No cough. Chronic diarrhea with no change due to IBS. She denies any prior abdominal surgeries. She denies any trauma or strenuous activity that would have injured her musculoskeletal system. [facility] Medical History Abdominal pain Acute maxillary sinusitis, unspecified Acute sinusitis, unspecified Anxiety Asthma Atypical cells of the thyroid isthmus Back pain Back pain Body image problem Contusion of right chest wall Diarrhea Difficulty balancing Dizziness Encounter for PPD test Essential hypertension Fatigue Hemorrhoids Hiatal hernia Hiatal hernia with GERD Hypothyroidism IBS (irritable bowel syndrome) Low back pain Migraines Pain of right thumb Postsurgical hypothyroidism Sinusitis SOB (shortness of breath) Suspected COVID-19 virus infection Thoracic myofascial strain Thyroid disease Thyroid mass Tuberculin skin test encounter URI (upper respiratory infection) Vitamin D deficiency Home Medications ergocalciferol (vitamin D2) 1,250 mcg (50,000 unit) capsule cap PO 01/11/21 [History Last Taken Unknown] albuterol sulfate 90 mcg/actuation aerosol inhaler 2 puff inhalation 6XD PRN shortness of breath or wheezing #8.5 grams 10/15/21 [Rx Last Taken Unknown] propranolol 20 mg tablet 20 mg PO BID #60 tabs 01/15/22 [Rx Last Taken Unknown] sumatriptan succinate 25 mg tablet (Imitrex) See Rx Instructions PO .COMPLEX #14 tabs 01/15/22 [Rx Last Taken Unknown] levothyroxine 137 mcg tablet 137 mcg PO DAILY thyroid #90 tabs 01/29/22 [Rx Last Taken Unknown] hydrocodone-acetaminophen 5-325mg 5mg-325mg 1 tab PO Q6H PRN PRN Pain 3 days #10 TABLETS 02/02/22 [Rx Last Taken Unknown] ondansetron 4 mg disintegrating tablet 4 mg PO Q6H PRN PRN Nausea #15 tabs 02/02/22 [Rx Last Taken Unknown] Allergy/AdvReac Type Severity Reaction Status Date / Time No Known Allergies Allergy Verified 02/02/22 17:45 Family History Grandmother Myocardial infarction Thyroid disorder Skin cancer Grandfather Lung cancer Father Thyroid disorder Mother Kidney disease Brother Diabetes Surgical History H/O right knee surgery History of colonoscopy History of esophagogastroduodenoscopy (EGD) Hx of thyroidectomy Status post laser cataract surgery of left eye Social History Smoking Status: Never smoker alcohol intake: never substance use type: does not use what type of physical activity do you participate in: walking ROS ROS ED Constitutional Constitutional ED: Denies chills, fever(s) or weight loss Eyes Eyes: Denies change in vision or diplopia ENT ENT ED: Denies ear pain, rhinorrhea or sore throat Cardiovascular Cardiovascular: Denies chest pain, orthopnea, palpitations or racing heartbeat Respiratory/Chest Respiratory/Chest: Denies cough, dyspnea or orthopnea Gastrointestinal Gastrointestinal: Reports abdominal pain, diarrhea and nausea; Denies vomiting Genitourinary Genitourinary ED: Denies dysuria, hematuria or urinary frequency Musculoskeletal Musculoskeletal: Denies arthralgias or myalgias Integumentary Denies abscess or rash Neurologic Neurologic: Denies headache(s) or weakness Psychiatric Psychiatric: Denies anxiety, depression, suicidal ideation or suicidal thoughts Endocrine Endocrinology: Denies polydipsia, polyphagia or polyuria Allergic/Immunologic Allergic/Immunologic ED: Denies mouth swelling, tongue swelling or urticaria EXAM Physical Exam Const Vital Signs: 02/02/22 17:46 Temperature 98.2 F Temperature Source Temporal Pulse Rate 105 H Respiratory Rate 17 Blood Pressure 151/110 H Blood Pressure Mean 123 Pulse Ox 99 Oxygen Delivery Method Room Air Positive well nourished and well developed General Appearance ED: well developed HEENT Reports normocephalic, head/scalp atraumatic and moist mucous membranes Eyes PERRL and EOMs intact bilaterally Neck no lymphadenopathy, supple and no JVD Resp normal respiratory effort and clear to auscultation bilaterally Cardio regular rate, regular rhythm and no murmurs GI Auscultation: normoactive bowel sounds Palpation: soft and tender RUQ; Negative for guarding or rebound tenderness present Back/Spine no CVA tenderness and normal ROM Extremity normal to inspection General Extremety ED: Negative for edema General Extremity: Negative for edema Neuro oriented x3 and CN's II-XII intact bilaterally Sensorium / Orientation: alert Motor Exam: strength 5/5 throughout Psych mental status grossly normal Mood & Affect: Negative for depressed or tearful Skin no rashes or lesions noted and no wounds MDM MDM MDM Narrative Medical decision making narrative: White count 6.9. CMP and lipase are normal. test is negative. Urinalysis does not demonstrate any acute infection. CT of the abdomen pelvis demonstrates currently was consistent with mesenteric adenitis. Patient received Toradol for pain. She has been resting more comfortably. She also received Zofran for nausea. I can write her pain and nausea medicine have her follow-up with primary care if not improving return if worsening Lab Data Attestation: I reviewed the patient's lab results. Labs: Laboratory Results - last 24 hr 02/02/22 02/02/22 02/02/22 18:10 18:10 18:10 WBC 6.9 RBC 4.77 Hgb 13.3 Hct 39.8 MCV 83.4 MCH 27.9 MCHC 33.4 RDW Std Deviation 37.2 RDW Coeff of Andriy 12.2 Plt Count 233 MPV 9.0 Immature Gran % (Auto) 0.700 Neut % (Auto) 59.8 Lymph % (Auto) 29.6 [place] % (Auto) 6.9 Eos % (Auto) 2.7 Baso % (Auto) 0.3 Absolute Neuts (auto) 4.1 Absolute Lymphs (auto) 2.05 Nucleated RBC % 0 Sodium 140 Potassium 3.6 Chloride 106 Carbon Dioxide 24.0 Anion Gap 10 BUN 9 Creatinine 0.66 Estim Creat Clear Calc 127.81 Est GFR (MDRD) Af Amer 142 Est GFR (MDRD) Non-Af 117 BUN/Creatinine Ratio 13.7 Glucose 90 Calcium 9.4 Total Bilirubin 0.20 Direct Bilirubin 0.07 AST 20 ALT 29 Alkaline Phosphatase 59 Total Protein 7.8 Albumin 3.8 Globulin 4.0 Lipase 121 Serum , Qual NEGATIVE Urine Color Urine Clarity Urine pH Ur Specific [place] Urine Protein Urine Glucose (UA) Urine Ketones Urine Occult Blood Urine Nitrite Urine Bilirubin Urine Urobilinogen Ur Leukocyte Esterase Urine RBC Urine WBC Ur Squamous Epith Cells Urine Bacteria Urine Mucus 02/02/22 19:15 WBC RBC Hgb Hct MCV MCH MCHC RDW Std Deviation RDW Coeff of Andriy Plt Count MPV Immature Gran % (Auto) Neut % (Auto) Lymph % (Auto) [place] % (Auto) Eos % (Auto) Baso % (Auto) Absolute Neuts (auto) Absolute Lymphs (auto) Nucleated RBC % Sodium Potassium Chloride Carbon Dioxide Anion Gap BUN Creatinine Estim Creat Clear Calc Est GFR (MDRD) Af Amer Est GFR (MDRD) Non-Af BUN/Creatinine Ratio Glucose Calcium Total Bilirubin Direct Bilirubin AST ALT Alkaline Phosphatase Total Protein Albumin Globulin Lipase Serum , Qual Urine Color Yellow Urine Clarity Clear Urine pH 6.5 Ur Specific [place] 1.010 Urine Protein 15 H Urine Glucose (UA) Normal Urine Ketones 15 H Urine Occult Blood Negative Urine Nitrite Negative Urine Bilirubin Negative Urine Urobilinogen Normal Ur Leukocyte Esterase 100 H Urine RBC 0 SEEN Urine WBC 0-5 SEEN Ur Squamous Epith Cells 0-5 SEEN Urine Bacteria RARE Urine Mucus 0 SEEN Radiography Diagnostic Testing: Clinical Impression(s) from Imaging Studies Abdomen/Pelvis CT 02/02/22 17:55 IMPRESSION: Suspect gastroenteritis and/or mesenteric adenitis per Electronically Signed: Niles Weaver MD at 19:32 EDT , Discharge Plan Triage Chief Complaint: Abd Pain ED Provider: Juan Plascencia Dx/Rx/DC Orders Clinical Impression: Acute mesenteric adenitis, Abdominal pain Instructions: ED Adenitis, Mesenteric Prescriptions: New hydrocodone-acetaminophen [hydrocodone-acetaminophen] 5-325 mg tablet 1 tab PO Q6H PRN PRN (Reason: Pain) 3 Days Qty: 10 0RF ondansetron [ondansetron] 4 mg tablet,disintegrating 4 mg PO Q6H PRN PRN (Reason: Nausea) Qty: 15 0RF No Action ergocalciferol (vitamin D2) 1,250 mcg (50,000 unit) capsule PO propranolol 20 mg tablet 20 mg PO BID Qty: 60 2RF sumatriptan succinate [Imitrex] 25 mg tablet See Rx Instructions PO .COMPLEX Qty: 14 1RF Rx Instructions: take 1 tab at onset of headache; if no relief may repeat 1 tab after at least 2 hrs; max = 4 tabs/24 hr PO albuterol sulfate 90 mcg/actuation HFA aerosol inhaler 2 puff inhalation 6XD PRN (Reason: shortness of breath or wheezing) Qty: 8.5 0RF levothyroxine 137 mcg tablet 137 mcg PO DAILY Qty: 90 3RF Rx Instructions: TAKE 1 TABLET BY MOUTH EVERY DAY Primary Care Provider: Anna De La Rosa Referrals: Anna De La Rosa MD [Primary Care Provider] - As Needed Disposition Disposition: Home, Self Care
[2022-02-02] MEDS: Ketorolac 30 MG/ML Syringe IV (18:03)
[2022-02-02] MEDS: Ondansetron 4 MG/2 ML Vial IV (18:04)
[2022-02-02 18:14] LABS: Absolute Lymphocyte Count 2.05 X10^3/uL (0.83-4.51); Absolute Neutrophil Count 4.1 X10^3/uL (2.0-7.7); Basophil# 0.02 X10^3/uL; Basophil% 0.3 % (0-1); Eosinophil# 0.19 X10^3/uL; Eosinophils% 2.7 % (0-5); Hematocrit 39.8 % (37-47); Hemoglobin 13.3 g/dL (12.0-15.0); Lymphocyte # 2.05 X10^3/ul (0.83-4.51); Lymphocyte % 29.6 % (19-41); Mean Corp Hgb Conc 33.4 g/dL (32-36); Mean Corpuscular Hgb 27.9 pg (27.0-32.0); Mean Corpuscular Volume 83.4 fL (81-99); Monocyte# 0.48 X10^3/uL; Monocyte% 6.9 % (0-10); NRBC Flagged by Analyzer 0 % (0-5); Neutrophil # 4.14 X10^3/uL (2.7-7.7); Neutrophil % 59.8 % (47-70); Platelet Count 233 K/mm3 (150-450); RBC Distribution Width CV 12.2 % (11.6-14.6); RBC Distribution Width SD 37.2 fl (35.1-43.9); Red Blood Count 4.77 M/mm3 (4.2-5.4); White Blood Count 6.9 K/mm3 (4.4-11.0)
[2022-02-02 18:18] LABS: Internal QC Validated? YES +Cl - CLEAR BKGD
[2022-02-02 18:23] LABS: Pregnancy, Serum, hCG Quali. NEGATIVE Negative
[2022-02-02 18:31] LABS: AST(SGOT) 20 U/L (15-37); Alanine Aminotransfer ALT/SGPT 29 U/L (13-56); Albumin, Serum 3.8 g/dL (3.2-5.0); Alkaline Phosphatase 59 U/L (45-117); Anion Gap 10 (5-15); BUN 9 mg/dL (7-18); BUN/Creat Ratio 13.7 RATIO (10-20); Bilirubin, Direct 0.07 mg/dL (0.00-0.30); Calcium,Total 9.4 mg/dL (8.5-10.1); Chloride 106 mmol/L (98-107); Creatinine, Serum 0.66 mg/dL (0.55-1.02); EST Glomerular Filtration Rate 117 mL/min (>60); Est Glom Filt Rate - Afr Amer 142 mL/min (>60); Estimated Creatinine Clearance 127.81 ml/min; Glucose 90 mg/dL (74-106); Lipase 121 U/L (73-393); Potassium 3.6 mmol/L (3.5-5.1); Protein, Total 7.8 g/dL (6.4-8.2); Sodium Level 140 mmol/L (136-145)
[2022-02-02 19:19] LABS: Mucous, Urine 0 SEEN /hpf (<or=2+); Red Blood Cells-Urine 0 SEEN /hpf (0-5)
[2022-02-02 19:22] LABS: Color, Urine Yellow (Yellow); Glucose, Dipstick Normal (Normal); Ketone-Dipstick 15 mg/dl (Negative); Leukocyte Esterase-Dipstick 100 /ul (Negative); Nitrite-Dipstick Negative (Negative); Occult Blood-Urine Negative /ul (Negative); Protein-Dipstick 15 mg/dl (Negative); Urine Bilirubin Dipstick Negative (Negative); Urine Clarity Clear (Clear); Urine Urobilinogen Normal (Normal); Urine pH 6.5 (5.0 - 8.0)
[2022-02-02 19:31] LABS: Bacteria RARE /hpf (None Seen); Squamous Epithelial Cells - UA 0-5 SEEN /hpf (5-10); White Blood Cells 0-5 SEEN /hpf (0-5)
[2022-02-02 20:04] VITALS: BP 140/85; PULSE 97; RESP 15; O2SAT 99
== END 2022-02-02 20:05 | disposition home or self-care (01) ==
PROVIDERS: Emergency Provider Emergency Medicine; PCP Internal Medicine; Visit Provider Emergency Medicine
DX: I88.0 Nonspecific mesenteric lymphadenitis (principal); I10 Essential (primary) hypertension; R10.9 Unspecified abdominal pain; K58.0 Irritable bowel syndrome with diarrhea; E03.9 Hypothyroidism, unspecified
CPT/HCPCS: 74177; 80048; 80076; 81001; 83690; 84703; 85025; 99283; Q9967; A4216; J2405

== ENCOUNTER → 2022-05-27 | Outpatient (CLI) | payer MEDICAID, SELFPAY | END | disposition home or self-care (01) | LOC: LABSPEC 15:22 | PROVIDERS: PCP Physician Assistant; Referring Provider Physician Assistant; Visit Provider Physician Assistant | DX: R50.9 Fever, unspecified (principal) | CPT/HCPCS: 87635; U0003; U0005 ==

== ENCOUNTER → 2022-08-28 | Outpatient (CLI) | payer MEDICAID, SELFPAY ==
[2022-08-28 13:07] LABS: Thyroid Stim Hormone (TSH) 6.01 uIU/mL (0.358-3.74)
== END | disposition home or self-care (01) ==
LOC: BIMLAB 09:06
PROVIDERS: Visit Provider Nurse Practitioner Family
DX: E03.9 Hypothyroidism, unspecified (principal)
CPT/HCPCS: 36415; 84443

== ENCOUNTER → 2022-10-15 | Outpatient (CLI) | payer MEDICAID, SELFPAY ==
[2022-10-15 12:37] LABS: Thyroid Stim Hormone (TSH) 3.93 uIU/mL (0.358-3.74)
== END | disposition home or self-care (01) ==
LOC: BIMLAB 09:02
PROVIDERS: Referring Provider Nurse Practitioner Family; Visit Provider Nurse Practitioner Family
DX: E03.9 Hypothyroidism, unspecified (principal)
CPT/HCPCS: 36415; 84443

== ENCOUNTER → 2023-04-13 | Outpatient (CLI) | payer MEDICAID, SELFPAY ==
[2023-04-13 12:15] LABS: Absolute Lymphocyte Count 2.49 X10^3/uL (0.83-4.51); Absolute Neutrophil Count 4.7 X10^3/uL (2.0-7.7); Basophil# 0.07 X10^3/uL; Basophil% 0.9 % (0-1); Hematocrit 35.2 % (37-47); Hemoglobin 10.9 g/dL (12.0-15.0); Lymphocyte # 2.49 X10^3/ul (0.83-4.51); Lymphocyte % 31.8 % (19-41); Mean Corpuscular Hgb 25.6 pg (27.0-32.0); Mean Corpuscular Volume 82.6 fL (81-99); Monocyte% 6.4 % (0-10); NRBC Flagged by Analyzer 0 % (0-5); Neutrophil # 4.66 X10^3/uL (2.7-7.7); Neutrophil % 59.5 % (47-70); Platelet Count 332 K/mm3 (150-450); RBC Distribution Width CV 13.7 % (11.6-14.6); Red Blood Count 4.26 M/mm3 (4.2-5.4); White Blood Count 7.8 K/mm3 (4.4-11.0)
[2023-04-13 12:44] LABS: ALB/GLOB Ratio 1.1 RATIO (0.9-2.4); AST(SGOT) 15 U/L (15-37); Alanine Aminotransfer ALT/SGPT 36 U/L (13-56); Albumin, Serum 3.8 g/dL (3.2-5.0); Alkaline Phosphatase 67 U/L (45-117); Anion Gap 6 (5-15); BUN 15 mg/dL (7-18); BUN/Creat Ratio 17.7 RATIO (10-20); Calcium,Total 9.5 mg/dL (8.5-10.1); Chloride 106 mmol/L (98-107); Cholesterol 210 mg/dL (200); Creatinine, Serum 0.85 mg/dL (0.55-1.02); EST Glomerular Filtration Rate 87 mL/min (>60); Est Glom Filt Rate - Afr Amer 105 mL/min (>60); Globulin 3.5 g/dL (2.2-4.2); Glucose 113 mg/dL (74-106); High Density Lipoprotein 39 mg/dL; Protein, Total 7.3 g/dL (6.4-8.2); Sodium Level 139 mmol/L (136-145); Thyroid Stim Hormone (TSH) 0.67 uIU/mL (0.358-3.74); Triglycerides 369 mg/dL; Very Low Density Lipoprotein 74 mg/dL (5-40)
== END | disposition home or self-care (01) ==
LOC: BIMLAB 11:25
PROVIDERS: PCP Internal Medicine; Referring Provider Internal Medicine; Visit Provider Internal Medicine
DX: E03.9 Hypothyroidism, unspecified (principal); I10 Essential (primary) hypertension
CPT/HCPCS: 36415; 80053; 80061; 84443; 85025

== ENCOUNTER → 2023-08-05 | Outpatient (CLI) | payer MEDICAID, SELFPAY ==
[2023-08-05 12:25] LABS: Basophil# 0.06 X10^3/uL; Basophil% 0.8 % (0-1); Hematocrit 39.8 % (37-47); Hemoglobin 12.8 g/dL (12.0-15.0); Lymphocyte % 29.2 % (19-41); Mean Corp Hgb Conc 32.2 g/dL (32-36); Mean Corpuscular Hgb 26.3 pg (27.0-32.0); Mean Corpuscular Volume 81.9 fL (81-99); Mean Platelet Vol. 9.2 fl (6.2-12.0); Monocyte# 0.44 X10^3/uL; Monocyte% 5.6 % (0-10); NRBC Flagged by Analyzer 0 % (0-5); Neutrophil # 4.96 X10^3/uL (2.7-7.7); Platelet Count 313 K/mm3 (150-450); RBC Distribution Width CV 14.1 % (11.6-14.6); RBC Distribution Width SD 41.4 fl (35.1-43.9); Red Blood Count 4.86 M/mm3 (4.2-5.4); White Blood Count 7.9 K/mm3 (4.4-11.0)
[2023-08-05 13:23] LABS: Ferritin 93 ng/mL (8-252); Iron 70 ug/dL (50-170); T4 Free Direct 1.46 ng/dL (0.76-1.46); Thyroid Stim Hormone (TSH) 0.71 uIU/mL (0.358-3.74)
== END | disposition home or self-care (01) ==
LOC: BIMLAB 11:06
PROVIDERS: PCP Internal Medicine; Referring Provider Physician Assistant; Visit Provider Physician Assistant
DX: D64.9 Anemia, unspecified (principal); E03.9 Hypothyroidism, unspecified
CPT/HCPCS: 36415; 82728; 83540; 84439; 84443; 85025